=== PATIENT | female | born 1950 | race Caucasian/White ===

== ENCOUNTER 2022-07-20 13:23 | Outpatient (CLI) | payer MEDICARE, OTHER, SELFPAY ==
[2022-07-20 15:06] LABS: Chloride* 100 mmol/L (96-114); Potassium* 4.2 mmol/L (3.6-5.1); Sodium* 135 mmol/L (135-149)
[2022-07-20 15:08] LABS: Cholesterol* 203 mg/dL (90-199); Creatinine* 0.6 mg/dL (0.5-1.5); Estimated Glomerular Filt Rate 95 ml/min
[2022-07-20 15:09] LABS: Blood Urea Nitrogen* 17 mg/dL (7-30); Carbon Dioxide* 29 mmol/L (20-32); Glucose* 97 mg/dL (60-115); Triglycerides* 90 mg/dL (40-149)
[2022-07-20 15:10] LABS: Calcium* 9.4 mg/dL (8.4-10.6); HDL Cholesterol* 53 mg/dL (>=50); LDL Cholesterol Calculated 132 mg/dL (<100)
== END 2022-07-20 13:24 | disposition home or self-care (01) ==
PROVIDERS: PCP Internal Medicine; Visit Provider Internal Medicine
DX: I10 Essential (primary) hypertension (principal); E78.5 Hyperlipidemia, unspecified
CPT/HCPCS: 80048; 80061

== ENCOUNTER 2022-08-03 10:24 | Emergency (ER) | payer MEDICARE, OTHER, SELFPAY ==
[2022-08-03 10:41] VITALS: BP 148/86; PULSE 91; RESP 18; TEMP 37.4; O2SAT 98; BMI 33.8
[2022-08-03 12:49] VITALS: BP 164/88; PULSE 84; O2SAT 98
--- NOTE | 2022-08-03 13:13 | ED_ITS ---
HPI - General Adult General Chief complaint: Headache/Migraine Stated complaint: blood pressure issues Time Seen by Provider: 08/03/22 12:34 History of Present Illness HPI narrative: This 71-year-old female was instructed to come here by her primary physician for evaluation. She had a change in her blood pressure medicines about a week ago and states that she now has a mild headache. She does not have any neurologic symptoms and states that she would not have come into the emergency department except for the advice that she received. I am not aware of any phone call from her provider in this regard. She does not report any neurologic deficits. She does not have any chest pain or shortness of breath. She does bring her blood pressure records over the past week and they are essentially in acceptable range of blood pressures being adequately treated. She does have a few that were elevated into the 140s. Related Data Home Medications Medication Instructions Recorded Confirmed ascorbic acid (vitamin C) 500 mg 750 mg PO DAILY 07/20/22 07/20/22 tablet aspirin 81 mg tablet,delayed 81 mg PO DAILY 07/20/22 07/20/22 release biotin 1 mg tablet 1,000 mg PO DAILY 07/20/22 07/20/22 calcium carbonate 600 mg calcium 600 mg PO QDAY 07/20/22 07/20/22 (1,500 mg) tablet (Calcium) Previous Rx's Medication Instructions Recorded amlodipine 2.5 mg tablet 2.5 mg PO QDAY #90 tabs 07/20/22 valsartan 80 mg tablet 80 mg PO QDAY #90 tabs 07/20/22 Allergies Allergy/AdvReac Type Severity Reaction Status Date / Time cetirizine Allergy Unknown Unknown Verified 07/20/22 12:54 Clove oil Allergy Intermediate Rash Uncoded 07/20/22 12:54 Cultivated wheat grass Allergy Intermediate Rash Uncoded 07/20/22 12:54 Milk solids Allergy Intermediate Abdominal Uncoded 07/20/22 12:54 Pain Soy Allergy Allergy Intermediate Abdominal Uncoded 07/20/22 12:54 Pain Review of Systems Status of ROS: Reports: 10 or more systems reviewed and unremarkable except as noted in History and below Narrative: Constitutional: No fevers, no weight gain or loss. Eyes: No discharge. No vision changes. HENT: No congestion, no sore throat, no ear pain. Mild headache. Cardiovascular: No chest pain, no palpitations. Respiratory: No shortness of breath, no wheezes, no cough. Gastrointestinal: No abdominal pain, no vomiting, no diarrhea. Genitourinary: No dysuria, no hematuria. Musculoskeletal: Normal range of motion. Skin: No rashes, no pruritis. Neurological: No dizziness, weakness, sensory change, speech change. Endo/Heme/Allergies: No bruising or bleeding. No polydipsia. Pysch: no suicidality, no anxiety, no insomnia. All other systems reviewed and are negative. [facility] Surgical History (Updated 07/20/22 @ 13:09 by Ashlie Fregoso MD) History of basal cell carcinoma excision History of malignant melanoma (05/2016) History of tonsillectomy History of total hysterectomy with bilateral salpingo-oophorectomy (BSO) (1986) Family History (Updated 07/14/22 @ 09:40 by Esme Lui) Mother Breast cancer, Onset Age: 59 Uncle Colon cancer Aunt Colon cancer Diabetes Brother Diabetes Father Kidney disease Sister Thyroid disease Daughter Thyroid disease Social History Smoking Status: Never smoker How often do you have a drink containing alcohol: never How often do you have six or more drinks on one occasion: Never AUDIT-C Alcohol total score: 0 Non-prescribed substance use: denies use Little interest or pleasure in doing things: not at all Feeling down, depressed, or hopeless: not at all Exam Narrative: Exam Narrative: Constitutional: Well-developed, well-nourished, no acute distress. HEENT: Normocephalic, atraumatic. Neck: Normal range of motion. Nontender. Supple. Heart: Regular. No murmurs. Normal rate. Intact distal pulses. Lungs: Clear to auscultation. No chest discomfort. No wheezes, rhonchi, or rales. Abdomen: Normal bowel sounds. Nontender. No rebound tenderness. Genitalia: Deferred. Back: No midline tenderness. Normal range of motion. Extremities: Normal range of motion. No injury. Skin: Intact. No rash. Warm. No erythema or pallor. Neurologic: No altered sensation. No weakness. Alert and oriented. No facial asymmetry. Tongue is midline. No pronator drift. Director Health strength is equal bilaterally. Heel to johnson is normal. Psychiatric: No suicidality. No anxiety or depression. No insomnia. Nursing notes and vitals signs are reviewed. Const: Vital Signs, click to edit/add: Vital Signs - 24 hr 08/03/22 10:41 08/03/22 12:49 Temperature 99.4 F Pulse Rate [Right Pulse Oximeter] 91 84 Respiratory Rate 18 Blood Pressure [Ri ght Upper Arm] 148/86 H 164/88 H Pulse Oximetry 98 98 Oxygen Delivery Me thod Room Air Room Air Course Vital Signs Vital signs: Initial Vital Signs Temperature 99.4 F 08/03/22 10:41 Temperature Source Temporal Artery Scan 08/03/22 10:41 Pulse Rate 91 08/03/22 10:41 Respiratory Rate 18 08/03/22 10:41 Blood Pressure 148/86 H 08/03/22 10:41 Blood Pressure Mean 106 08/03/22 10:41 Blood Pressure Position Sitting 08/03/22 10:41 Pulse Oximetry 98 08/03/22 10:41 Oxygen Delivery Method 08/03/22 10:41 Vital Signs Temperature 99.4 F 08/03/22 10:41 Pulse Rate 91 08/03/22 10:41 Respiratory Rate 18 08/03/22 10:41 Blood Pressure 148/86 H 08/03/22 10:41 Pulse Oximetry 98 08/03/22 10:41 Oxygen Delivery Method 08/03/22 10:41 Temperature 99.4 F 08/03/22 10:41 Pulse Rate 84 08/03/22 12:49 Respiratory Rate 18 08/03/22 10:41 Blood Pressure 164/88 H 08/03/22 12:49 Pulse Oximetry 98 08/03/22 12:49 Oxygen Delivery Method 08/03/22 12:49 Medical Decision Making MDM Narrative Medical decision making narrative: This patient comes in with a belief that her blood pressure is causing her headache. I explained that it is really the opposite where are blood pressure response to symptoms that we may be having. She does think that and this headache is related to amlodipine which she started about a week ago. She had been on valsartan and hydrochlorothiazide. She discontinued the hydrochlorothiazide cording to her providers instructions because she was concerned about kidneys. Her exam today is normal. Actually her blood pressures are acceptable. I did describe the criteria that bring us to consider change in treatment strategy but typically this is managed by her primary physician. I did discuss lab and imaging options today and in a process of shared decision making these were declined. She states that she will consider taking 1 medication in the morning in the other 1 in the evening. She plans to follow-up with her primary physician. Discharge Plan Discharge Clinical Impression: Headache Patient Disposition: Home, Self-Care Condition: Stable Additional Instructions: Continue current plans and follow-up with primary physician for review of medications. Return if worsening symptoms happen. Prescriptions: No Action aspirin 81 mg tablet,delayed release (DR/EC) 81 mg PO DAILY biotin 1 mg tablet 1,000 mg PO DAILY ascorbic acid (vitamin C) 500 mg tablet 750 mg PO DAILY calcium carbonate [Calcium 600] 600 mg calcium (1,500 mg) tablet 600 mg PO QDAY valsartan 80 mg tablet 80 mg PO QDAY Qty: 90 3RF amlodipine 2.5 mg tablet 2.5 mg PO QDAY Qty: 90 3RF Follow Up/Referrals: Ashlie Fregoso MD [Primary Care Provider] - Stand Alone Forms: flux - neutrinity Info Instructions
== END 2022-08-03 13:23 | disposition home or self-care (01) ==
LOC: ED 13:22
PROVIDERS: Emergency Provider Emergency Medicine Emergency Medical Services; PCP Internal Medicine
DX: R51.9 Headache, unspecified (principal)
CPT/HCPCS: 99283; 99284

== ENCOUNTER 2022-08-10 13:07 | Outpatient (CLI) | payer MEDICARE, OTHER, SELFPAY ==
--- NOTE | 2022-08-10 13:16 | CRLHL7_ITS ---
For Patients: As a result of the Century Cures Act, medical imaging exams and procedure reports are released immediately into your electronic medical record. You may view this report before your referring provider. If you have questions, please contact your health care provider. BILATERAL SCREENING MAMMOGRAM WITH COMPUTER-AIDED DETECTION AND TOMOSYNTHESIS TECHNIQUE: CC and MLO views were obtained. These mammographic images have been obtained using full-field digital technique. These mammographic images were interpreted with the benefit of computer-aided detection. Breast Tomosynthesis was used in this interpretation. COMPARISON FILM: 05/13/22, 06/20/20. FINDINGS: There are scattered areas of fibroglandular density IMPRESSION: There is no radiographic evidence for malignancy. ASSESSMENT: BI-RADS Category 1: Negative RECOMMENDATION: Routine screening mammogram in 1 year. A lay language report of this examination will be provided to the patient. Elder Choudhury M.D. Diagnostic Radiologist [email or web address] DAMION/Dictated by: Elder Choudhury MD @ 08/11/2022 11:54:00 AM (Electronically Signed)
== END 2022-08-10 13:08 | disposition home or self-care (01) ==
LOC: MAMMO 13:08
PROVIDERS: PCP Internal Medicine; Visit Provider Internal Medicine
DX: Z12.31 Encounter for screening mammogram for malignant neoplasm of breast (principal)
CPT/HCPCS: 77063; 77067

== ENCOUNTER 2022-10-18 09:59 | Outpatient (CLI) | payer MEDICARE, OTHER, SELFPAY | END 2022-10-18 10:00 | disposition home or self-care (01) | LOC: NFLDREF 10-19 22:35 | PROVIDERS: PCP Internal Medicine; Referring Provider Internal Medicine; Visit Provider Internal Medicine | DX: I10 Essential (primary) hypertension (principal); E78.5 Hyperlipidemia, unspecified | CPT/HCPCS: 80048; 80061 ==

== ENCOUNTER 2023-03-10 15:06 | Emergency (ER) | payer MEDICARE, OTHER, SELFPAY ==
[2023-03-10] VITALS (11 sets, daily range): BP systolic 115–134; BP diastolic 69–80; PULSE 62–93; RESP 16–17; TEMP 37.2; O2SAT 96–98; BMI 29.3
--- NOTE | 2023-03-10 15:31 | CRLHL7_ITS ---
For Patients: As a result of the Century Cures Act, medical imaging exams and procedure reports are released immediately into your electronic medical record. You may view this report before your referring provider. If you have questions, please contact your health care provider. CLINICAL HISTORY: Left upper and lower extremity paresthesias. TECHNIQUE: CTA neck with contrast bolus tracking. 3D angiographic rendering using maximum intensity projection (MIP) and images permanently archived. COMPARISON: None available. FINDINGS: The great vessels are patent. The common carotid arteries are patent. The proximal ICAs are patent without signficant stenoses by NASCET criteria. The more distal cervical ICAs are patent. The origins of the vertebral arteries are patent. The cervical segments of the vertebral arteries are patent. IMPRESSION: Patent cervical arterial vasculature without hemodynamically significant luminal stenosis. Please note that all CT scans at this facility use dose modulation, iterative reconstruction, and/or weight-based dosing when appropriate to reduce radiation dose to as low as reasonably achievable. Dictated by Donny Carter MD @ 03/11/2023 9:23:43 AM (Electronically Signed)
--- NOTE | 2023-03-10 15:31 | CRLHL7_ITS ---
For Patients: As a result of the Century Cures Act, medical imaging exams and procedure reports are released immediately into your electronic medical record. You may view this report before your referring provider. If you have questions, please contact your health care provider. CLINICAL HISTORY: Left upper and lower extremity paresthesias. TECHNIQUE: CTA head with contrast bolus tracking. 3D angiographic rendering using maximum intensity projection (MIP) and images permanently archived. COMPARISON: None available. FINDINGS: The petrous, cavernous, and supraclinoid segments of the internal carotid arteries are patent. The anterior and middle cerebral arteries are patent. The anterior communicating artery is visualized and is within normal limits. The intracranial vertebral arteries, basilar trunk, and posterior cerebral arteries are patent. No intracranial proximal large vessel occlusion or flow-limiting luminal stenosis. No evidence of cerebral aneurysm. No findings to suggest an arterial-venous shunting lesion. IMPRESSION: No intracranial proximal large vessel occlusion, flow-limiting luminal stenosis, or cerebral aneurysm. Please note that all CT scans at this facility use dose modulation, iterative reconstruction, and/or weight-based dosing when appropriate to reduce radiation dose to as low as reasonably achievable. Dictated by Donny Carter MD @ 03/11/2023 9:23:14 AM (Electronically Signed)
--- NOTE | 2023-03-10 15:31 | CRLHL7_ITS ---
For Patients: As a result of the Cures Act, medical imaging exams and procedure reports are released immediately into your electronic medical record. You may view this report before your referring provider. If you have questions, please contact your health care provider. INDICATION: Left hand/arm and left leg paresthesias. COMPARISON: None. TECHNIQUE: CT of the head without IV contrast. Coronal and sagittal reconstructions. FINDINGS: No intracranial hemorrhage, mass effect, or evidence of acute infarct. No midline shift. No abnormal extra-axial fluid collections. Mild generalized cerebral and cerebellar volume loss with associated ex vacuo dilation of the lateral ventricles. Orbits and extraocular muscles are symmetric. The visualized paranasal sinuses and mastoid air cells are clear. No acute fracture identified. Soft tissues are unremarkable. IMPRESSION: No acute intracranial findings. Please note that all CT scans at this facility use dose modulation, iterative reconstruction, and/or weight-based dosing when appropriate to reduce radiation dose to as low as reasonably achievable. Dictated by Cora Johnson MD @ 03/10/2023 4:47:10 PM (Electronically Signed)
--- NOTE | 2023-03-10 15:33 | ED_ITS ---
HPI - General Adult General Chief complaint: Neuro Symptoms/Altered Deficit Stated complaint: L hand pain/numbness Time Seen by Provider: 03/10/23 15:30 History of Present Illness HPI narrative: This 72-year-old female comes in reporting tingling sensation with some mild weakness in her left hand and forearm that began about 5-1/2 hours prior to arrival. She also reported some tingling sensation in her left foot. She states that she did have some weakness in her left arm when this 1st occurred but these symptoms have improved. She reports similar symptoms previously that occurred years ago and was told that she might have had a transient ischemic attack. She does not take any anticoagulants normally but did take an aspirin this morning. She states that she normally walks 2-1/2 miles twice a day. She does not report any altered speech. She is able to ambulate normally. She does not have any facial asymmetry. Related Data Home Medications Medication Instructions Recorded Confirmed ascorbic acid (vitamin C) 500 mg 750 mg PO DAILY 07/20/22 03/10/23 tablet aspirin 81 mg tablet,delayed 81 mg PO DAILY 07/20/22 03/10/23 release biotin 1 mg tablet 1,000 mg PO DAILY 07/20/22 03/10/23 calcium carbonate 600 mg calcium 600 mg PO QDAY 07/20/22 03/10/23 (1,500 mg) tablet (Calcium) Previous Rx's Medication Instructions Recorded amlodipine 2.5 mg tablet 2.5 mg PO QDAY #90 tabs 10/21/22 valsartan 80 mg tablet 80 mg PO QDAY #90 tabs 10/21/22 Allergies Allergy/AdvReac Type Severity Reaction Status Date / Time cetirizine Allergy Unknown Unknown Verified 10/21/22 09:54 Clove oil Allergy Intermediate Rash Uncoded 10/21/22 09:54 Cultivated wheat grass Allergy Intermediate Rash Uncoded 10/21/22 09:54 Milk solids Allergy Intermediate Abdominal Uncoded 10/21/22 09:54 Pain Soy Allergy Allergy Intermediate Abdominal Uncoded 10/21/22 09:54 Pain Review of Systems Status of ROS: Reports: 10 or more systems reviewed and unremarkable except as noted in History and below Narrative: Constitutional: No fevers, no weight gain or loss. Eyes: No discharge. No vision changes. HENT: No congestion, no sore throat, no ear pain. Cardiovascular: No chest pain, no palpitations. Respiratory: No shortness of breath, no wheezes, no cough. Gastrointestinal: No abdominal pain, no vomiting, no diarrhea. Genitourinary: No dysuria, no hematuria. Musculoskeletal: Normal range of motion. Skin: No rashes, no pruritis. Neurological: No dizziness, speech change. Sensory change with some initial weakness as described above. Endo/Heme/Allergies: No bruising or bleeding. No polydipsia. Pysch: no suicidality, no anxiety, no insomnia. All other systems reviewed and are negative. PFSH PFS Surgical History (Updated 07/20/22 @ 13:09 by Ashlie Fregoso MD) History of basal cell carcinoma excision ?Z98.890 - Other specified postprocedural states (ICD-10) ?Z85.828 - Personal history of other malignant neoplasm of skin (ICD-10) History of total hysterectomy with bilateral salpingo-oophorectomy (BSO) (1986) ?Z90.710 - Acquired absence of both cervix and uterus (ICD-10) ?Z90.722 - Acquired absence of ovaries, bilateral (ICD-10) ?Z90.79 - Acquired absence of other genital organ(s) (ICD-10) History of tonsillectomy ?Z90.89 - Acquired absence of other organs (ICD-10) History of malignant melanoma (05/2016) ?Z85.820 - Personal history of malignant melanoma of skin (ICD-10) Family History (Updated 07/14/22 @ 09:40 by Esme Lui ~ PSR) Mother Breast cancer, Onset Age: 59 Uncle Colon cancer Aunt Colon cancer Diabetes Brother Diabetes Father Kidney disease Sister Thyroid disease Daughter Thyroid disease Social History Smoking Status: Never smoker How often do you have a drink containing alcohol: never How often do you have six or more drinks on one occasion: Never AUDIT-C Alcohol total score: 0 Non-prescribed substance use: denies use Little interest or pleasure in doing things: not at all Feeling down, depressed, or hopeless: not at all Exam Narrative: Exam Narrative: Constitutional: Well-developed, well-nourished, no acute distress. HEENT: Normocephalic, atraumatic. Neck: Normal range of motion. Nontender. Supple. Heart: Regular. No murmurs. Normal rate. Intact distal pulses. Lungs: Clear to auscultation. No chest discomfort. No wheezes, rhonchi, or rales. Abdomen: Normal bowel sounds. Nontender. No rebound tenderness. Genitalia: Deferred. Back: No midline tenderness. Normal range of motion. Extremities: Normal range of motion. No injury. Phalen's test is negative. Tinel sign is negative on the left hand and wrist. She has some difficulty bringing her thumb to touch her little finger on her left hand. Skin: Intact. No rash. Warm. No erythema or pallor. Neurologic: Alert and oriented. No facial asymmetry. Tongue is midline. [id number] is normal. No pronator drift. Signalling And Communications Engineer strength is slightly weak and on the left compared to the right. She is able to ambulate normally. Psychiatric: No suicidality. No anxiety or depression. No insomnia. Nursing notes and vitals signs are reviewed. Const: Vital Signs, click to edit/add: Vital Signs - 24 hr 03/10/23 15:15 Temperature 98.9 F Pulse Rate [Left P ulse Oximeter] 93 Respiratory Rate 16 Blood Pressure [Ri ght Upper Arm] 115/75 Pulse Oximetry 96 Oxygen Delivery Me thod Room Air Course Vital Signs Vital signs: Initial Vital Signs Temperature 98.9 F 03/10/23 15:15 Temperature Source Temporal Artery Scan 03/10/23 15:15 Pulse Rate 93 03/10/23 15:15 Respiratory Rate 16 03/10/23 15:15 Blood Pressure 115/75 03/10/23 15:15 Blood Pressure Mean 88 03/10/23 15:15 Blood Pressure Position Sitting 03/10/23 15:15 Pulse Oximetry 96 03/10/23 15:15 Oxygen Delivery Method Room Air 03/10/23 15:15 Vital Signs Temperature 98.9 F 03/10/23 15:15 Pulse Rate 93 03/10/23 15:15 Respiratory Rate 16 03/10/23 15:15 Blood Pressure 115/75 03/10/23 15:15 Pulse Oximetry 96 03/10/23 15:15 Oxygen Delivery Method Room Air 03/10/23 15:15 Temperature 98.9 F 03/10/23 15:15 Pulse Rate 93 03/10/23 15:15 Respiratory Rate 16 03/10/23 15:15 Blood Pressure 115/75 03/10/23 15:15 Pulse Oximetry 96 03/10/23 15:15 Oxygen Delivery Method Room Air 03/10/23 15:15 Medical Decision Making MDM Narrative Medical decision making narrative: This patient comes in with altered sensation and some mild weakness as described above. These symptoms started about 6 hours prior to arrival here. Her NIH stroke scale returns at 1 because of mild altered sensation. I did place an order for CT imaging of her head and CT angio of her head and neck. These results are pending at the end of my shift. Care for this patient is transferred to Dr. Kern. Lab Data Labs: Lab Results 03/10/23 Range/Units 15:37 WBC 8.97 (4.50-11.00) K/uL RBC 4.68 (4.00-5.20) m/uL Hgb 13.7 (12.0-16.0) gm/dL Hct 41.5 (33.0-51.0) % MCV 89 (80-100) fL MCH 29 (26-34) pg MCHC 33 (32-36) gm/dL RDW Coeff of Minor 12.6 (11.5-15.5) % Plt Count 213 (140-440) K/uL Neut % (Auto) 38.4 L (42.0-72.0) % Lymph % (Auto) 55.1 H (20-44) % Hamblen % (Auto) 5.8 (0.0-11.0) % Eos % (Auto) 0.2 (0.0-7.0) % Baso % (Auto) 0.3 (0.0-3.0) % Neut # (Auto) 3.40 (1.7-7.0) K/uL Lymph # (Auto) 4.90 H (0.90-2.90) K/uL Hamblen # (Auto) 0.50 (0.00-0.90) K/UL Eos # (Auto) 0.02 (0.00-0.50) K/uL Baso # (Auto) 0.03 (0.00-0.30) K/uL Abs Immat Gran (auto) 0.02 (0.00-0.30) K/uL Imm/Tot Granulo (auto) 0.2 % Sodium 139 (135-149) mmol/L Potassium 3.7 (3.6-5.1) mmol/L Chloride 104 (96-114) mmol/L Carbon Dioxide 27 (20-32) mmol/L Anion Gap 8 (7-15) mEq/L BUN 19 (7-30) mg/dL Creatinine 0.8 (0.5-1.5) mg/dL Estimated Creat Clear 39.04 Estimated GFR 77 ml/min Glucose 120 H (60-115) mg/dL Calcium 9.9 (8.4-10.6) mg/dL POC Creatinine 0.8 (0.6-1.3) mg/dl Discharge Plan Discharge Clinical Impression: Paresthesias Prescriptions: No Action valsartan 80 mg tablet 80 mg PO QDAY Qty: 90 3RF amlodipine 2.5 mg tablet 2.5 mg PO QDAY Qty: 90 3RF aspirin 81 mg tablet,delayed release (DR/EC) 81 mg PO DAILY biotin 1 mg tablet 1,000 mg PO DAILY ascorbic acid (vitamin C) 500 mg tablet 750 mg PO DAILY calcium carbonate [Calcium 600] 600 mg calcium (1,500 mg) tablet 600 mg PO QDAY Follow Up/Referrals: Ashlie Fregoso MD [Primary Care Provider] -
--- NOTE | 2023-03-10 15:45 | ED.NURSE ---
Patient to CT
[2023-03-10 15:52] LABS: Basophils Absolute Auto 0.03 K/uL (0.00-0.30); Basophils Percent Auto 0.3 % (0.0-3.0); Eosinophils Absolute Auto 0.02 K/uL (0.00-0.50); Eosinophils Percent Auto 0.2 % (0.0-7.0); Hematocrit 41.5 % (33.0-51.0); Hemoglobin* 13.7 gm/dL (12.0-16.0); Immature Granulocytes Abs Auto 0.02 K/uL (0.00-0.30); Immature Granulocytes Pct Auto 0.2 %; Lymphocytes Percent Auto 55.1 % (20-44); Mean Corpuscular HGB Conc 33 gm/dL (32-36); Mean Corpuscular Hemoglobin 29 pg (26-34); Mean Corpuscular Volume 89 fL (80-100); Monocytes Percent Auto 5.8 % (0.0-11.0); Neutrophils Percent Auto 38.4 % (42.0-72.0); Platelet Count* 213 K/uL (140-440); RDW Coefficient of Variation % 12.6 % (11.5-15.5); Red Blood Count 4.68 m/uL (4.00-5.20); White Blood Count* 8.97 K/uL (4.50-11.00)
[2023-03-10 15:57] LABS: Creatinine, Point-of-Care* 0.8 mg/dl (0.6-1.3)
[2023-03-10 15:58] LABS: Slide Review Reflex No
[2023-03-10 16:04] LABS: Chloride* 104 mmol/L (96-114); Potassium* 3.7 mmol/L (3.6-5.1); Sodium* 139 mmol/L (135-149)
[2023-03-10 16:07] LABS: Anion Gap 8 mEq/L (7-15); Blood Urea Nitrogen* 19 mg/dL (7-30); Carbon Dioxide* 27 mmol/L (20-32); Creatinine* 0.8 mg/dL (0.5-1.5); Est. Creatinine Clearance* 39.04; Estimated Glomerular Filt Rate 77 ml/min
[2023-03-10 16:08] LABS: Calcium* 9.9 mg/dL (8.4-10.6); Glucose* 120 mg/dL (60-115)
--- NOTE | 2023-03-10 16:25 | CRLHL7_ITS ---
For Patients: As a result of the Century Cures Act, medical imaging exams and procedure reports are released immediately into your electronic medical record. You may view this report before your referring provider. If you have questions, please contact your health care provider. INDICATION: Left extremity paresthesia. TECHNIQUE: Multisequence multiplanar MRI of the head without contrast. COMPARISON: None available at this institution. FINDINGS: No evidence of acute ischemia. Scattered foci of supratentorial white matter hyperintensity typical of mild chronic small vessel ischemic changes. Chronic lacunar infarct in the right cerebellar hemisphere with evidence of prior microhemorrhage. The ventricles are normal in size. Flow voids of the larger intracranial arteries are patent. Bone marrow signal intensity of the calvarium is within normal limits. Orbits are unremarkable in appearance. Paranasal sinuses and mastoid air cells are predominantly clear. IMPRESSION: 1. No acute intracranial abnormality. 2. Mild chronic small vessel ischemic changes and old right cerebellar lacunar infarct. Dictated by Brad Carver MD @ 03/10/2023 6:16:36 PM (Electronically Signed)
--- NOTE | 2023-03-10 17:24 | ED.NURSE ---
Patient to MRI
== END 2023-03-10 19:19 | disposition home or self-care (01) ==
PROVIDERS: Emergency Medicine Emergency Medical Services; Emergency Provider Emergency Medicine; PCP Internal Medicine
DX: R20.2 Paresthesia of skin (principal)
CPT/HCPCS: 36415; 70450; 70496; 70498; 70551; 80048; 82565; 85025; 93005; 99283; 99284; 99285; Q9967

== ENCOUNTER 2023-03-21 10:58 | Outpatient (CLI) | payer MEDICARE, OTHER, SELFPAY | END 2023-03-21 10:59 | disposition home or self-care (01) | LOC: NFLDREF 11:07 | PROVIDERS: PCP Internal Medicine; Visit Provider Internal Medicine | DX: E78.5 Hyperlipidemia, unspecified (principal); I10 Essential (primary) hypertension | CPT/HCPCS: 80061 ==

== ENCOUNTER 2023-03-29 12:45 | Outpatient (CLI) | payer MEDICARE, OTHER, SELFPAY ==
--- NOTE | 2023-03-29 13:59 | W.PM.STED ---
Stress Test Note Date Date Seen: 03/29/23 Date of test: 03/29/23 Providers Primary care provider: Ashlie Fregoso Stress test physician: Corinne Angel Stress Test Note Stress test ordered: Stress Echo Indication for test: Chest pain Stress test medicine: None Results discussion: Resting EKG: Sinus rhythm, 67 beats per minute. Resting blood pressure: 134/83 Stress test: Patient was exercise on the treadmill using standard David protocol. Patient was able to exercise to 9 minutes 13 seconds, stopping due to reaching her exercise capacity and achieving goal heart rate. This exercise level was equivalent to 10.7 Mets. She had a maximum heart rate of 150 beats per minute which was 120% of a calculated target heart rate of 124. She had a rate pressure product of 21,300. Patient had no chest symptoms or chest discomfort during the stress test. One solitary PVC was seen and EKG was printed at 2 minutes 29 seconds into recovery. Otherwise, no arrhythmia. Again, patient was asymptomatic. No EKG evidence of any ischemia. Patient discharge in stable condition. Impression: Subjectively negative, objectively negative EKG portion of this stress test. Follow up suggested: Await echo images to couple this for a full formal diagnostic.
[2023-03-29 15:04] VITALS: BP 138/90; PULSE 82; RESP 16
== END 2023-03-29 12:46 | disposition home or self-care (01) ==
LOC: STRESS 12:46
PROVIDERS: PCP Internal Medicine; Visit Provider Family Medicine
DX: R07.89 Other chest pain (principal)
CPT/HCPCS: 93016; 93325; 93351

== ENCOUNTER 2023-11-29 10:30 | Outpatient (CLI) | payer MEDICARE, OTHER, SELFPAY ==
--- OUTSIDE RECORDS SUMMARY | 2023-11-29 10:32 | XMS_ITS | Clinical Summary ---
Author Organization [facility] Address [address], [place] [address] Care Team Providers Care Toaster Element Repairer Name Role Phone Found, No Pcp Primary Care Provider Unavailab le Source Comments You are receiving this document as you are listed as the primary care provider,follow-up provider, or the patient has been referred to you for consultation.This is in compliance with the Medicare and[facility] EHR Incentive Program,which states Providers who transition their patient to another setting of careor provider of care or refers their patient to another provider of care shouldprovide summary care record for each transition of care or referral. [employer] Allergies Active Allergy Reactions Criticality Noted Date Comments Cetirizine Hives High 06/14/2023 Medications No known medications Active Problems No known active problems Social History Tobacco Use Types Packs/Day Years Used Date Smoking Tobacco: Never Assessed Sex and Gender Information Value Date Recorded Sex Assigned at Not on file Gender Identity Not on file Sexual Orientation Not on file Plan of Treatment Upcoming Encounters Date Type Department Care Team (Late st Contact Info) Description 06/19/2024 1:15 PM PATHOLOGIST ASSISTANT Appointment [facility] [address] [place], [place] [id number] Diane Rodriguez MD [address] [place] [address] Health Maintenance Due Date Last Done Comments Colon Cancer Screening Plan Due 1950 Hep C Screening (Preventive Services) 1950 Medicare Annual Wellness Visit 1950 Mammogram 1950 Dexa 2013 COVID-19 Vaccine ( season) 2023 01/25/2022, 05/08/2021, 09/04/2020, Additional history exists DTaP/Tdap/Td (4 - Tdap) 10/21/2032 10/22/19, 07/12/2013, 07/12/2012 Pneumococcal 65+ Yrs Completed 12/13/2018, 04/17/2014, 04/17/2014 Zoster/Shingles Completed 06/05/2019, 07/2018, 06/21/2012 Influenza Completed 04/14/2023, 04/04, 03/23/2021, Additional history exists HepA Aged Out No longer eligi ble based on patient's age to complete this topic HepB Aged Out No longer eligi ble based on patient's age to complete this topic Hib Aged Out No longer eligi ble based on patient's age to complete this topic IPV ([place]) Aged Out No longer eligi ble based on patient's age to complete this topic MCV4 Aged Out No longer eligi ble based on patient's age to complete this topic Care Teams Toaster Element Repairer Relationship Specialty Start Date End Date Found, No Pcp, [address] [place] [address] PCP - General 06/07/23
--- NOTE | 2023-11-29 10:45 | CRLHL7_ITS ---
For Patients: As a result of the Century Cures Act, medical imaging exams and procedure reports are released immediately into your electronic medical record. You may view this report before your referring provider. If you have questions, please contact your health care provider. BILATERAL SCREENING MAMMOGRAM WITH COMPUTER-AIDED DETECTION AND TOMOSYNTHESIS TECHNIQUE: CC and MLO views were obtained. These mammographic images have been obtained using full-field digital technique. These mammographic images were interpreted with the benefit of computer-aided detection. Breast Tomosynthesis was used in this interpretation. COMPARISON FILM: 08/10/22, 07/13/21, 06/20/20. FINDINGS: There are scattered areas of fibroglandular density IMPRESSION: There is no radiographic evidence for malignancy. ASSESSMENT: BI-RADS Category 1: Negative RECOMMENDATION: Routine screening mammogram in 1 year. A lay language report of this examination will be provided to the patient. Elder Choudhury M.D. Diagnostic Radiologist [email or web address] DAMION/Dictated by: Elder Choudhury MD @ 11/30/2023 9:20:00 AM (Electronically Signed)
== END 2023-11-29 10:31 | disposition home or self-care (01) ==
LOC: MAMMO 10:31
PROVIDERS: PCP Internal Medicine; Visit Provider Internal Medicine
DX: Z12.31 Encounter for screening mammogram for malignant neoplasm of breast (principal)
CPT/HCPCS: 77063; 77067

== ENCOUNTER 2024-03-07 08:40 | Outpatient (CLI) | payer MEDICARE, OTHER, SELFPAY ==
--- OUTSIDE RECORDS SUMMARY | 2024-03-11 12:03 | XMS_ITS | Clinical Summary ---
Author Organization [facility] Address [address], [place] [address] Care Team Providers Care Supervising Nurse Name Role Phone Found, No Pcp Primary Care Provider Unavailab le Source Comments You are receiving this document as you are listed as the primary care provider,follow-up provider, or the patient has been referred to you for consultation.This is in compliance with the Medicare and[facility]centive [facility],which states Providers who transition their patient to another setting of careor provider of care or refers their patient to another provider of care shouldprovide summary care record for each transition of care or referral. [employer] Allergies Active Allergy Reactions Criticality Noted Date [...] st Contact Info) Description 06/19/2024 1:15 PM SLEEVE FIXER Appointment [facility] [address] [place], [place] [address] Diane Rodriguez MD [address] [place] [address] Health Maintenance Due Date Last Done Comments Colon Cancer Screening Plan Due 1950 Hep C Screening (Preventive Services) 1950 Medicare Annual Wellness Visit 1950 Mammogram 1950 Dexa 2013 COVID-19 Vaccine ( season) 2024 01/25/2022, 05/08/2021, 09/04/2020, Additional history exists Influenza (#1) 2024 04/14/2023, 04/04, 03/23/2021, Additional history exists DTaP/Tdap/Td (4 - Tdap) 10/21/2032 10/22/19, 07/12/2013, 07/12/2012 Pneumococcal 65+ Yrs Completed 12/13/2018, 04/17/2014, 04/17/2014 Zoster/Shingles Completed 06/05/2019, 07/2018, 06/21/2012 HepA Aged Out No longer eligi ble [...] age to complete this topic Care Teams Supervising Nurse Relationship Specialty Start Date End Date Found, No Pcp, [address] [place] [address] PCP - General 06/07/23
== END 2024-03-07 08:41 | disposition home or self-care (01) ==
LOC: NFLDREF 03-11 12:01
PROVIDERS: PCP Internal Medicine; Referring Provider Internal Medicine; Visit Provider Internal Medicine
DX: E78.5 Hyperlipidemia, unspecified (principal); I10 Essential (primary) hypertension
CPT/HCPCS: 80048; 80061

== ENCOUNTER 2024-06-14 09:00 | Outpatient (RCR) | payer MEDICARE, OTHER, SELFPAY | END 2024-09-06 14:13 | disposition home or self-care (01) | PROVIDERS: PCP Internal Medicine; Visit Provider Internal Medicine | DX: M54.6 Pain in thoracic spine (principal); Z51.89 Encounter for other specified aftercare | CPT/HCPCS: 97110; 97140; 97162; 97535 ==

== ENCOUNTER 2024-06-15 10:30 | Outpatient (CLI) | payer MEDICARE, OTHER, SELFPAY ==
--- NOTE | 2024-06-15 10:45 | CRLHL7_ITS ---
For Patients: As a result of the Cures Act, medical imaging exams and procedure reports are released immediately into your electronic medical record. You may view this report before your referring provider. If you have questions, please contact your health care provider. DIGITAL DIAGNOSTIC BILATERAL MAMMOGRAM USING TOMOSYNTHESIS AND COMPUTER-AIDED DETECTION LEFT BREAST ULTRASOUND CLINICAL HISTORY: LEFT breast lump. COMPARISON: 11/29/23, 08/10/22, 07/13/21. TECHNIQUE: Digital BILATERAL mammogram in four projections with computer-aided detection. Tomosynthesis was used in this interpretation. Real-time ultrasound imaging of LEFT breast with imaging documentation. BREAST COMPOSITION: There are scattered areas of fibroglandular density. FINDINGS: 3D CC/MLO BILATERAL mammogram images submitted. Irregular mass is present within the upper outer quadrant LEFT breast, new from prior studies. No suspicious calcifications. Unremarkable RIGHT breast mammogram images. Targeted LEFT breast ultrasound performed at 1 o`clock 9 cm from the nipple. In this location, there is a heterogeneous irregularly marginated hypoechoic solid mass measuring 1.9 x 1.5 x 2.0 cm. Normal-appearing LEFT axillary lymph nodes are present. IMPRESSION: Suspicious LEFT breast mass 1 o`clock 9 cm from the nipple measuring 1.9 x 1.5 x 2.0 cm. RECOMMENDATIONS: Ultrasound-guided core needle biopsy. A lay language report of this examination will be provided to the patient. BI-RADS Category 4: Suspicious Dictated by Elder Choudhury MD @ 06/15/2024 12:52:00 PM jj/Dictated by: Elder Choudhury MD @ 06/15/2024 12:52:00 PM (Electronically Signed)
--- NOTE | 2024-06-15 11:15 | CRLHL7_ITS ---
For Patients: As a result of the Cures Act, medical imaging exams and procedure reports are released immediately into your electronic medical record. You may view this report before your referring provider. If you have questions, please contact your health care provider. SEE DIGITAL DIAGNOSTIC BILATERAL MAMMOGRAM PERFORMED SAME DAY CRL:pio suero/Dictated by: Elder Choudhury MD @ 06/15/2024 12:52:00 PM (Electronically Signed)
== END 2024-06-15 10:31 | disposition home or self-care (01) ==
LOC: MAMMO 10:31
PROVIDERS: PCP Internal Medicine; Visit Provider Registered Nurse
DX: N63.21 Unspecified lump in the left breast, upper outer quadrant (principal)
CPT/HCPCS: 76642; 77066; G0279

== ENCOUNTER 2024-06-21 08:58 | Outpatient (CLI) | payer MEDICARE, OTHER, SELFPAY ==
--- NOTE | 2024-06-21 09:15 | CRLHL7_ITS ---
For Patients: As a result of the 21st Century Cures Act, medical imaging exams and procedure reports are released immediately into your electronic medical record. You may view this report before your referring provider. If you have questions, please contact your health care provider. ULTRASOUND-GUIDED BREAST BIOPSY AND POST-BIOPSY DIGITAL MAMMOGRAM FOR BIOPSY MARKER PLACEMENT CLINICAL HISTORY: Suspicious mass. COMPARISON STUDIES: 06/15/2024. TECHNIQUE: Real-time ultrasound with image documentation was used for targeting the breast lesion. Core biopsy specimens were obtained using an automated gun with a 14-gauge biopsy needle. Post-biopsy CC and ML digital mammograms were obtained to document position of the biopsy marker. CONSENT and TIME OUT: The procedure, risks, and alternatives were explained to the patient and a consent was signed. [place] Protocol was followed including pre-procedure verification that relevant information/documentation was available, reviewed and properly matched to the patient; consent accurate and complete; and equipment and supplies available. Time Out was conducted just prior to starting procedure to verify the four required elements: patient identity, correct side/site marked (if applicable), procedure, relevant images/results properly labeled and displayed (if applicable). PROCEDURE: The patient was positioned supine on the ultrasound table. The breast was prepped with ChloraPrep. 8 cc of 1 percent lidocaine used for local anesthesia. Core samples were obtained. A sterile metal biopsy clip was placed percutaneously to molina the lesion position within the breast. The specimens were placed in 10% formalin and sent to the pathology department. Pressure was held on the biopsy site until all bleeding subsided. The skin incision was closed with Steri-Strips. An ice pack was positioned over the biopsy site. Post-biopsy instructions were reviewed with the patient, and a written copy was given to her. LATERALITY: LEFT breast. LESION: Solid heterogeneously hypoechoic macrolobulated mass with internal vascularity measuring 1.9 x 1.5 x 2.0 cm at 1 o`clock 9 cm from the nipple. SUSPICION FOR MALIGNANCY: High. NUMBER OF SAMPLES: 3. Only three samples obtained due to bleeding during the procedure which was managed with pressure and subsided easily. Postprocedure hematoma noted on the post clip films. BIOPSY CLIP SHAPE: Oval. PROXIMITY OF CLIP TO TARGET: Within the lesion. IMPRESSION: Ultrasound-guided breast biopsy. When the pathology report is available, an addendum to this report will be made. ACR not applicable Dictated by Elder Choudhury MD @ 06/21/2024 10:28:07 AM pio/Dictated by: Elder Choudhury MD @ 06/21/2024 10:28:00 AM (Electronically Signed)
--- NOTE | 2024-06-21 10:00 | CRLHL7_ITS ---
For Patients: As a result of the Century Cures Act, medical imaging exams and procedure reports are released immediately into your electronic medical record. You may view this report before your referring provider. If you have questions, please contact your health care provider. SEE ULTRASOUND-GUIDED LEFT BREAST BIOPSY PERFORMED SAME DAY CRL:pio suero/Dictated by: Elder Choudhury MD @ 06/21/2024 10:25:00 AM (Electronically Signed)
== END 2024-06-21 08:59 | disposition home or self-care (01) ==
PROVIDERS: PCP Internal Medicine; Visit Provider Registered Nurse
DX: N63.20 Unspecified lump in the left breast, unspecified quadrant (principal); R92.8 Other abnormal and inconclusive findings on diagnostic imaging of breast
CPT/HCPCS: 19083; 77065; 88305; 88341; 88342; 88360; 88361; A4648; A4649

== ENCOUNTER 2024-06-29 10:02 | Outpatient (CLI) | payer MEDICARE, OTHER, SELFPAY ==
--- NOTE | 2024-06-29 10:15 | CRLHL7_ITS ---
For Patients: As a result of the Century Cures Act, medical imaging exams and procedure reports are released immediately into your electronic medical record. You may view this report before your referring provider. If you have questions, please contact your health care provider. BILATERAL BREAST MRI WITHOUT AND WITH GADOLINIUM CLINICAL HISTORY: New diagnosis left breast cancer INDICATION FOR BREAST MRI: Staging of newly diagnosed breast cancer and screening of contralateral breast. Regional lymph nodes will also be assessed. COMPARISON STUDIES: 08/10/2022, 06/15/2024, 06/21/2024 CONTRAST: 15 mL Dotarem TECHNIQUE: The patient was positioned prone using a breast coil. Multiple imaging sequences were obtained using 1-1.5 mm thick slices with no gap. The image sequences include T2-weighted STIR in the axial plane, T1-weighted nonfat-saturated gradient echo in the axial plane, pre- and post-contrast T1-weighted FLASH 3D with fat suppression in the axial plane, and T1-weighted FLASH high resolution 3D with fat suppression in the sagittal plane. Image post-processing was performed on a Code Rebel workstation. Complex 3D rendering including maximum intensity projections (MIPS) and volumetric renderings were obtained to optimize visualization of the extent of pathology and relationship to the nipple, skin, and chest wall. This aids in determining feasibility of breast conservation surgery. Subtraction, multiplanar reconstruction, mean curve determination, and angiogenesis mapping were also performed. The study was technically adequate. FINDINGS: Amount of Fibroglandular Tissue: Heterogeneous. Breast Background Enhancement: None RIGHT Breast: No suspicious mass or enhancement LEFT Breast: New breast cancer is visualized as an enhancing mass left upper outer quadrant measurement 2.1 x 1.2 x 1.8 cm. Contains the marker clip placed at biopsy. No other findings. Lymph Nodes: Right axillary lymph nodes negative. Two indeterminate lymph nodes identified in the left axilla. No internal mammary nodes are enlarged. Other Findings: Large hepatic cyst IMPRESSIONS AND RECOMMENDATIONS: The new left breast cancer is visualized as a 2.1 x 1.2 x 1.8 cm enhancing mass containing a marker clip placed at biopsy. The right breast is negative. There are a few indeterminate left axillary lymph nodes. Consider ultrasound left axilla with possible biopsy if clinically needed. BI-RADS: [id number] malignancy Dictated by Kendra Scott MD @ 07/02/2024 2:47:52 PM (Electronically Signed)
== END 2024-06-29 10:03 | disposition home or self-care (01) ==
PROVIDERS: PCP Internal Medicine; Visit Provider Surgery
DX: C50.412 Malignant neoplasm of upper-outer quadrant of left female breast (principal); R59.0 Localized enlarged lymph nodes
CPT/HCPCS: 77049; C8908; C8937; A9575

== ENCOUNTER 2024-07-11 07:59 | Outpatient (CLI) | payer MEDICARE, OTHER, SELFPAY ==
--- NOTE | 2024-07-11 08:15 | CRLHL7_ITS ---
For Patients: As a result of the Century Cures Act, medical imaging exams and procedure reports are released immediately into your electronic medical record. You may view this report before your referring provider. If you have questions, please contact your health care provider. ULTRASOUND-GUIDED LEFT AXILLARY LYMPH NODE BIOPSY CLINICAL HISTORY: LEFT breast cancer with suspicious LEFT axillary lymph nodes. COMPARISON STUDIES: MRI 06/29/2024. TECHNIQUE: Real-time ultrasound with image documentation was used for targeting the LEFT axillary lymph node lesion. Core biopsy specimens were obtained using an automated gun with an 18-gauge biopsy needle. CONSENT and TIME OUT: The procedure, risks, and alternatives were explained to the patient and a consent was signed. [place] Protocol was followed including pre-procedure verification that relevant information/documentation was available, reviewed and properly matched to the patient; consent accurate and complete; and equipment and supplies available. Time Out was conducted just prior to starting procedure to verify the four required elements: patient identity, correct side/site marked (if applicable), procedure, relevant images/results properly labeled and displayed (if applicable). PROCEDURE: The patient was positioned supine on the ultrasound table. The LEFT axilla was prepped with ChloraPrep. 8 cc of 1 percent lidocaine used for local anesthesia. Core samples were obtained. The specimens were placed in 10% formalin and sent to the pathology department. Pressure was held on the biopsy site until all bleeding subsided. The skin incision was closed with Steri-Strips. An ice pack was positioned over the biopsy site. Post-biopsy instructions were reviewed with the patient, and a written copy was given to her. LATERALITY: LEFT axilla. LESION: Mildly enlarged LEFT axillary lymph node measuring 2.1 cm with mild prominence of the associated cortex. SUSPICION FOR MALIGNANCY: High. NUMBER OF SAMPLES: 5. BIOPSY CLIP SHAPE: Oval. PROXIMITY OF CLIP TO TARGET: Within the lesion. IMPRESSION: Ultrasound-guided breast biopsy. When the pathology report is available, an addendum to this report will be made. ACR not applicable Dictated by Elder Choudhury MD @ 07/11/2024 10:45:51 AM jj/Dictated by: Elder Choudhury MD @ 07/11/2024 10:46:00 AM (Electronically Signed)
== END 2024-07-11 08:00 | disposition home or self-care (01) ==
LOC: US 08:00
PROVIDERS: PCP Internal Medicine; Visit Provider Surgery
DX: C50.912 Malignant neoplasm of unspecified site of left female breast (principal)
CPT/HCPCS: 38505; 76942; 88305; A4648; A4649

== ENCOUNTER 2024-07-16 07:46 | Outpatient (CLI) | payer MEDICARE, OTHER, SELFPAY | END 2024-07-16 07:47 | disposition home or self-care (01) | LOC: RAD 07:48 | PROVIDERS: PCP Internal Medicine; Visit Provider Internal Medicine Hematology & Oncology | DX: Z01.818 Encounter for other preprocedural examination (principal); C50.919 Malignant neoplasm of unspecified site of unspecified female breast | CPT/HCPCS: 93306 ==

== ENCOUNTER 2024-07-19 11:14 | Day surgery (SDC) | payer MEDICARE, OTHER, SELFPAY ==
[2024-07-19] MEDS: SODIUM CHLORIDE 0.9 % (FLUSH) 10 ML SYRINGE IVF (11:40)
[2024-07-19 11:41] VITALS: BMI 27.3
--- NOTE | 2024-07-19 11:43 | W.PM.H&PU ---
History & Physical Update History & Physical Update H&P Reviewed and patient assessed: No changes noted
[2024-07-19] MEDS: 0.9 % SODIUM CHLORIDE 500 ML 500 ML 100 ML IV (11:50)
[2024-07-19 11:51] VITALS: BP 140/87; PULSE 71; RESP 16; TEMP 36.9; O2SAT 98
[2024-07-19] MEDS: CEFAZOLIN 1 GM inj IVP (12:11)
--- NOTE | 2024-07-19 12:11 | CRLHL7_ITS ---
For Patients: As a result of the Century Cures Act, medical imaging exams and procedure reports are released immediately into your electronic medical record. You may view this report before your referring provider. If you have questions, please contact your health care provider. Indication: Status post Port-A-Cath placement Technique: Chest 1 view Comparison: None Findings/Impression: Cardiovascular and mediastinum: Upper normal heart size with mild aortic tortuosity. Right-sided Port-A-Cath with tip at the cavoatrial junction. Lungs and pleural space: Lungs are clear. No sign of infiltrate or mass. No sign of pleural effusion. No pneumothorax. Bones and soft tissues: Clip overlying the left axilla. Dictated by Severiano Ferris MD @ 07/19/2024 1:31:34 PM (Electronically Signed)
--- NOTE | 2024-07-19 12:12 | PM.GSPRC ---
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 Hemo therapy was recommended as the 1st treatment modality and she presents today for port placement. Procedure Description: After discussing the risks and benefits of the procedure, the patient signed informed consent.? The operative site was marked and the patient was brought to the operating room and placed on the operating table in supine position.? Care was taken to pad the patient's pressure points.?? The patient was then given sedation by anesthesia.?? The operative site was then prepped and draped in the usual sterile fashion.? A time-out was then performed. The patient's right internal jugular vein was visualized using ultrasound. Local anesthetic was injected into the skin overlying the vein. This was accessed percutaneously using ultrasound guidance. Using Seldinger technique, a guidewire was threaded through the needle. A skin amrita was made around the wire. Next, local anesthetic was injected into the skin below the clavicle and along the proposed tract to the neck incision. A skin incision was then made with a 15 blade and a pocket created in the subcutaneous tissue with cautery. A tunneler was then used to thread the catheter from the chest wall pocket to the neck incision. Once this was done fluoroscopy was brought into the field. Over the wire, the tract was dilated using fluoroscopy. The wire and the dilator were then removed leaving the sheath in the vein. Through this, the catheter was threaded. Using fluoroscopy, the catheter was positioned into the distal SVC. The catheter was noted to flush and aspirate easily. The catheter was then connected to the port. The port was placed in the pocket and secured in place with 2 0 Prolene sutures. It was noted to flush and aspirate easily once in position. This was then locked with heparinized saline. The skin was closed with absorbable suture. Sterile dressings were applied. Instrument sponge and needle counts were correct at the end of the case. The patient was woken and taken to the PACU in stable condition. The patient tolerated the procedure well. Findings: Right IJ power port placed in the low SVC. Anesthesia: MAC Surgeon: Arianne Grace MD Estimated blood loss (mL): 5 Condition: stable Disposition: same day
--- NOTE | 2024-07-19 12:13 | P.ANES_ITS ---
Anesthesia Charges Start Date/Time Anesthesia Start Date: 07/19/24 Anesthesia Start Time: 11:59 Stop Date/Time Anesthesia Stop Date: 07/19/24 Anesthesia Stop Time: 13:04 Summary Extremes of Age - Over 70 or under 1: COAL HAULER OPERATOR Coding CPT Codes CPT Codes: ANESTH VASCULAR ACCESS - 98693 ([id number]) P3 - PATIENT W/SEVERE SYS DISEASE, QK - COMMUNITY MIDWIFE 2-4 CNCRNT ANES PROC, QX - COAL HAULER OPERATOR SVC W/ MD MED DIRECTION Additional Codes: Summary - Extremes of Age - Over 70 or under 1: COAL HAULER OPERATOR ([id number])
--- NOTE | 2024-07-19 12:13 | W.ANESCHARGE ---
Anesthesia Charges Start Date/Time Anesthesia Start Date: 07/19/24 Anesthesia Start Time: 11:59 Stop Date/Time Anesthesia Stop Date: 07/19/24 Anesthesia Stop Time: 13:04 Summary Extremes of Age - Over 70 or under 1: PRODUCTION CONTROL PEGBOARD CLERK Coding CPT Codes CPT Codes: ANESTH VASCULAR ACCESS - 98511 ([id number]) P3 - PATIENT W/SEVERE SYS DISEASE, QK - SLUDGE FILTRATION OPERATOR 2-4 CNCRNT ANES PROC, QX - PRODUCTION CONTROL PEGBOARD CLERK SVC W/ MD MED DIRECTION Additional Codes: Summary - Extremes of Age - Over 70 or under 1: PRODUCTION CONTROL PEGBOARD CLERK ([id number])
--- NOTE | 2024-07-19 12:15 | CRLHL7_ITS ---
For Patients: As a result of the Century Cures Act, medical imaging exams and procedure reports are released immediately into your electronic medical record. You may view this report before your referring provider. If you have questions, please contact your health care provider. Indication: Ronit Cath Placement Technique: One fluoroscopic image of the chest. Fluoroscopic time 25.5 seconds. IMPRESSION: Fluoroscopic guidance for Port-A-Cath placement. Dictated by Elder Choudhury MD @ 07/20/2024 8:39:43 AM (Electronically Signed)
[2024-07-19] MEDS: LIDOCAINE 1% MDV 20 ML INJECTION (12:23)
[2024-07-19] MEDS: BUPIVACAINE 0.5% 30 ML INJECTION (12:23)
[2024-07-19] MEDS: 0.9% SODIUM CHL 50 ML VIAL INJECTION (12:44)
[2024-07-19] MEDS: HEPARIN 500 UNIT/5 ML SYRINGE IVF (12:47)
[2024-07-19 13:00] VITALS: BP 108/74; PULSE 66; RESP 16; TEMP 36.6; O2SAT 96
[2024-07-19 13:15] VITALS: BP 119/86; PULSE 56; RESP 16; O2SAT 98
[2024-07-19 13:30] VITALS: BP 119/86; PULSE 70; RESP 16; O2SAT 98
[2024-07-19 13:45] VITALS: BP 120/84; PULSE 68; RESP 14; TEMP 36.6; O2SAT 99
--- NOTE | 2024-07-19 14:40 | W.ANESCHARGE ---
Anesthesia Charges Start Date/Time Anesthesia Start Date: 07/19/24 Anesthesia Start Time: 11:59 Stop Date/Time Anesthesia Stop Date: 07/19/24 Anesthesia Stop Time: 13:04 Summary Extremes of Age - Over 70 or under 1: MDA Coding CPT Codes CPT Codes: ANESTH VASCULAR ACCESS - 63792 ([id number]) QK - FISHERIES MANAGEMENT BIOLOGIST 2-4 CNCRNT ANES PROC, QX - STREET CONTRACTOR SVC W/ MD MED DIRECTION, P3 - PATIENT W/SEVERE SYS DISEASE Additional Codes: Summary - Extremes of Age - Over 70 or under 1: MDA ([id number])
== END 2024-07-19 14:18 | disposition home or self-care (01) ==
PROVIDERS: PCP Internal Medicine; Visit Provider Surgery
PROC: (CPT 36561; principal; 2024-07-19 12:15)
DX: Z45.2 Encounter for adjustment and management of vascular access device (principal); C50.412 Malignant neoplasm of upper-outer quadrant of left female breast; Z17.421 Hormone receptor negative with human epidermal growth factor receptor 2 negative status
CPT/HCPCS: 36561; 00532; 71045; 76000; 76998; 99100; J2003; C1788; J0665; J0690; J1100; J1642; J2250; J2405; J2704; J3010; J3490; J7030

== ENCOUNTER 2024-08-02 14:30 | Outpatient (CLI) | payer MEDICARE, OTHER, SELFPAY ==
--- NOTE | 2024-08-02 15:00 | CRLHL7_ITS ---
For Patients: As a result of the 21st Century Cures Act, medical imaging exams and procedure reports are released immediately into your electronic medical record. You may view this report before your referring provider. If you have questions, please contact your health care provider. EXAM: FDG PET-CT Skull Base to Thighs CLINICAL INFORMATION: 73-year-old woman with history of breast cancer. PET CT ordered for additional characterization. TECHNIQUE: Radiopharmaceutical: 18F-fluorodeoxyglucose (18F-FDG) Dose: 12.90 milliCurie. Blood glucose: 91 mg/dL. Image acquisition: At approximately 60 minutes following IV tracer administration via a left antecubital vein, positron emission tomography was performed from the skull base through the mid thigh. Non-contrast low-dose helical CT imaging was performed over the same range without breath-hold for attenuation correction of PET images and anatomic correlation; it is neither sufficient, nor should it be substituted for diagnostic purposes. COMPARISON: MRI breast 06/29/2024. FINDINGS: Mediastinal blood pool FDG uptake: SUVMax 2.2 (image 98) Liver background parenchymal FDG uptake: SUVMax 2.9 (image 143) HEAD AND NECK: No abnormal FDG uptake in the imaged head and neck. CHEST: Ports and devices: Right internal jugular port catheter with the tip terminating at the cavoatrial junction. Lungs: No abnormal FDG uptake. Pleura: No abnormal FDG uptake. Lymph Nodes: Mildly FDG avid 1.5 X 0.8 Cm left axillary node SUVMax 2.6 (Image 79). Faint FDG uptake at a 0.9 x 0.7 cm left axillary node containing a biopsy marker SUVMax 1.1 (Image 74), superior lateral to the node described above, representing a biopsy-proven benign lymph node. Mediastinum: No abnormal FDG uptake. Breasts/Chest Wall: 1.9 X 1.4 Cm mass containing a biopsy clip in the left upper outer breast SUVMax 7.5 (image 84). ABDOMEN/PELVIS: Liver/biliary system: No abnormal increased FDG uptake. Left liver cyst. Pancreas: No abnormal FDG uptake. Spleen: No abnormal FDG uptake. Adrenal Glands: No abnormal FDG uptake. Kidneys: No abnormal FDG uptake. Bowel: No abnormal FDG uptake. Colonic diverticulosis. Mesentery, Omentum and Peritoneum: No abnormal FDG uptake. Atherosclerotic calcifications. Pelvic Organs: No abnormal FDG uptake. Hysterectomy. Lymph Nodes: No abnormal FDG uptake. MUSCULOSKELETAL: No abnormal FDG uptake. Multilevel degenerative changes in the spine. IMPRESSION: 1. Moderately FDG avid 1.9 cm mass in the left upper-outer breast representing biopsy-proven invasive ductal carcinoma. 2. Mildly FDG avid left axillary lymph node, subcentimeter in short axis and inferomedial to a biopsy-proven left axillary benign lymph node, is nonspecific for a metastatic lymph node versus reactive/inflammatory change. Correlate with tissue sampling. Dictated by Dakota Chacon MD @ 08/06/2024 2:13:25 PM (Electronically Signed)
== END 2024-08-02 14:31 | disposition home or self-care (01) ==
LOC: RAD 14:31
PROVIDERS: PCP Internal Medicine; Visit Provider Internal Medicine Hematology & Oncology
DX: C50.412 Malignant neoplasm of upper-outer quadrant of left female breast (principal)
CPT/HCPCS: 78815; A9552

== ENCOUNTER 2024-08-09 08:56 | Outpatient (CLI) | payer MEDICARE, OTHER, SELFPAY ==
--- NOTE | 2024-08-09 10:15 | CRLHL7_ITS ---
For Patients: As a result of the Century Cures Act, medical imaging exams and procedure reports are released immediately into your electronic medical record. You may view this report before your referring provider. If you have questions, please contact your health care provider. ULTRASOUND-GUIDED LEFT AXILLARY LYMPH NODE BIOPSY CLINICAL HISTORY: Mildly hypermetabolic lymph node in the left axilla adjacent to a previously biopsied lymph node in the left axilla. Mildly prominent left axillary lymph node is present on ultrasound earlier today. Biopsy will be performed on this lymph node. COMPARISON STUDIES: CT-PET 08/02/2024, MRI breast 06/29/2024, ultrasound biopsy 06/21/2024 TECHNIQUE: Real-time ultrasound with image documentation was used for targeting the left axillary lesion. Core biopsy specimens were obtained using an automated gun with an 18-gauge biopsy needle. CONSENT and TIME OUT: The procedure, risks, and alternatives were explained to the patient and a consent was signed. [place] Protocol was followed including pre-procedure verification that relevant information/documentation was available, reviewed and properly matched to the patient; consent accurate and complete; and equipment and supplies available. Time Out was conducted just prior to starting procedure to verify the four required elements: patient identity, correct side/site marked (if applicable), procedure, relevant images/results properly labeled and displayed (if applicable). PROCEDURE: The patient was positioned supine on the ultrasound table. The left axilla was prepped with ChloraPrep. 8 cc of 1 percent lidocaine used for local anesthesia. Core samples were obtained. A sterile metal biopsy clip was placed percutaneously to molina the lesion position within the breast. The specimens were placed in 10% formalin and sent to the pathology department. Pressure was held on the biopsy site until all bleeding subsided. The skin incision was closed with Steri-Strips. An ice pack was positioned over the biopsy site. Post-biopsy instructions were reviewed with the patient, and a written copy was given to her. LATERALITY: Left axilla LESION: Left axillary lymph node is present measuring 9 x 7 x 11 millimeters deeper to the previously biopsied lymph node, probably representing the mildly hypermetabolic lymph node on recent PET SUSPICION FOR MALIGNANCY: Intermediate NUMBER OF SAMPLES: 5 BIOPSY CLIP SHAPE: HydroMARK PROXIMITY OF CLIP TO TARGET: Within the lesion IMPRESSION: Ultrasound-guided left axillary biopsy. When the pathology report is available, an addendum to this report will be made. ACR not applicable Dictated by Elder Choudhury MD @ 08/09/2024 11:25:12 AM (Electronically Signed)
== END 2024-08-09 08:57 | disposition home or self-care (01) ==
LOC: US 08:58
PROVIDERS: PCP Internal Medicine; Visit Provider Internal Medicine Hematology & Oncology
DX: R59.0 Localized enlarged lymph nodes (principal); C50.912 Malignant neoplasm of unspecified site of left female breast
CPT/HCPCS: 38505; 76882; 76942; 88305; A4648; A4649

== ENCOUNTER 2024-10-30 15:37 | Observation (INO) | payer MEDICARE, OTHER, SELFPAY ==
[2024-10-30] VITALS (20 sets, daily range): BP systolic 112–141; BP diastolic 68–107; PULSE 82–95; RESP 9–19; TEMP 36.5–37.1; O2SAT 96–100; BMI 26.0; BMI 26.4
--- OUTSIDE RECORDS SUMMARY | 2024-10-30 15:39 | XMS_ITS | Clinical Summary ---
Author Organization [employer] [facility] Address [address] [place] [id number] Care Team Providers Care Investigations Consultant Name Role Phone Ashlie Fregoso MD Primary Care Provider [phone] Encounters Date Type Department Care Team Description 08/09/2024 Lab Requisition [facility] [phone] Unknown, Doctor from Last 3 Months Social History Tobacco Use Types Packs/Day Years Used Date Smoking Tobacco: Never Assessed Comments Unknown Sex and Gender Information Value Date Recorded Sex Assigned at Not on file Legal Sex Female 2:57 PM CDT Gender Identity Not on file Sexual Orientation Not on file Plan of Treatment Health Maintenance Due Date Last Done Comments Tdap 1959 Depression screening for age 12+ 1960 BMI (ht and wt on same day) for age 18+ 1966 Hepatitis C screening for age 18-79 1966 Pneumococcal series for age 50+ (1 of 2 - PCV) 1967 Zoster (shingles) series for age 50+ (1 of 2) 1967 Tetanus booster 1968 DEXA/DXA scan for age 65+ 2013 Medicare Wellness for age 65+ 2013 COVID-19 vaccine series (3 - Moderna risk series) 02/22/2022 01/25/2022, 05/08/2021 RSV vaccine for adults or pr egnancy (1 - 1-dose 75+ series) 2023 Influenza Vaccine (Season Ended) 2025 Procedures Procedure Name Priority Date/Time Associated Diagnosis Comments LAB TRACKING EVENT Routine 08/09/2024 10 :08 AM MORTGAGE PROCESSING CLERK PATH BREAST CORE BIOPSY Routine 08/09/2024 10:08 AM MORTGAGE PROCESSING CLERK from Last 3 Months Results * LAB TRACKING EVENT (08/09/2024 10:08 AM MORTGAGE PROCESSING CLERK) Other (Other) Client Collect / Unknown 08/09/2024 10:08 AM MORTGAGE PROCESSING CLERK 08/09/2024 9:59 PM MORTGAGE PROCESSING CLERK us Doctor Unknown LAB BILL ONLY Final Result [facility] [address] [place] [address], * PATH BREAST CORE BIOPSY (08/09/2024 10:08 AM MORTGAGE PROCESSING CLERK) Case Report Pathology Report Case: [id number] Authorizing Provider: Unknown, Doctor Collected: 08/09/2024 1008 Ordering Location: [facility] Received: 08/10/2024 0916 Pathologist: Elder Yeh MD Specimen: Left Breast Core Ultrasound Biopsy 08/13/2024 9:48 AM MORTGAGE PROCESSING CLERK [facility] Final Diagnosis A) LEFT AXILLA, LYMPH NODE, ULTRASOUND-GUID ED CORE BIOPSY: 1. Fragments of benign lymph node 2. Negative for metastatic carcinoma in this sampling 08/13/2024 9:48 AM MORTGAGE PROCESSING CLERK [facility] at 0948 MORTGAGE PROCESSING CLERK Comment A) This is an image-guided breast biopsy. The pathologic findings should be correlated with radiologic and clinical findings prior to treatment decisions. Case seen in consultation with Dr. Flores. 08/13/2024 9:48 AM MORTGAGE PROCESSING CLERK [facility] Clinical Information A) Left axillary lymph node measuring 1.1 x 0.9 x 0.7 cm; PET avid; Recent diagnosis of left breast invasive ductal carcinoma, grade III ([id number]) and benign axillary lymph node biopsy ([id number]) 08/13/2024 9:48 AM MORTGAGE PROCESSING CLERK [facility] Gross Description A) Label: Patient's name and left axilla lymph node Description: 3 Fibrofatty core biopsies Size: Ranging from 0.3-0.7 cm in length by 0.2 cm in diameter Ink color: Black The specimen is submitted in toto in one cassette. Cold ischemic time: Less than 60 minutes, meets current ASCO/CAP guidelines. The specimen was fixed in formalin for a minimum of 6 hours and not longer than 72 hours. EVM 08/10/2024 08/13/2024 9:48 AM MORTGAGE PROCESSING CLERK [facility] Microscopic Description The final diagnosis is based on microscopic examination of appropriate sections of all specimens. A) The presence of black ink is confirmed on tissue sections. 08/13/2024 9:48 AM MORTGAGE PROCESSING CLERK [facility] Additional Information Interpreted at [facility] Laboratory - [address] [place] [address] 08/13/2024 9:48 AM MORTGAGE PROCESSING CLERK [facility] Other (Left Breast Core Ultrasound Biopsy) 08/09/2024 10:08 AM MORTGAGE PROCESSING CLERK 08/10/2024 9:16 AM MORTGAGE PROCESSING CLERK us Doctor Unknown PATHOLOGY/CYTOLOGY Final Result [facility] [address] [place] [address], from Last 3 Months Insurance MEDICARE PB ONLY [employer] MEDICARE PART A HB ONLY MEDICARE PART B HB ONLY Care Teams Investigations Consultant Relationship Specialty Start Date End Date Ashlie Fregoso MD [address] [place] [id number] PCP - General Internal Medicine 03/29/23
--- OUTSIDE RECORDS SUMMARY | 2024-10-30 15:39 | XMS_ITS | Clinical Summary ---
Author Organization [facility] Address [address], [place] [address] Care Team Providers Care Flight Superintendent Name Role Phone Found, No Pcp MD Primary Care Provider Unavailab le Source Comments You are receiving this document as you are listed as the primary care provider,follow-up provider, or the patient has been referred to you for consultation.This is in compliance with the Medicare and[facility] EHR Incentive Program,which states Providers who transition their patient to another setting of careor provider of care or refers their patient to another provider of care shouldprovide summary care record for each transition of care or referral. Candescent [employer] Allergies Active Allergy Reactions Criticality Noted Date Comments Cetirizine Hives High 06/14/2023 Medications No known medications Active Problems No known active problems Social History Tobacco Use Types Packs/Day Years Used Date Smoking Tobacco: Never Assessed Comments Unknown Sex and Gender Information Value Date Recorded Sex Assigned at Not on file Legal Sex Female 10:59 AM CDT Gender Identity Not on file Sexual Orientation Not on file Plan of Treatment Health Maintenance Due Date Last Done Comments Hep C Screening (Preventive Services) 1950 Medicare Annual Wellness Visit 1950 Dexa 2013 RSV Vaccine (1 - 1-dose 75+ series) 2023 COVID-19 Vaccine ( season) 2024 01/25/2022, 05/08/2021, 09/04/2020, Additional history exists Influenza Vaccine (#1) 2024 , 04/26/2022, 03/23/2021, Additional history exists DTaP/Tdap/Td Vaccine (4 - Tdap) 10/21/2032 10/21/2022, 07/12/2013, 07/12/2012 Pneumococcal Vaccine 50+ Yrs Completed 06/2019, 04/17/2014, 04/17/2014 Zoster/Shingles Vaccine Completed 06/05/20, 03/04/2019, 06/21/2012 HepA Vaccine Aged Out No longer eligi ble based on patient's age to complete this topic HepB Vaccine Aged Out No longer eligi ble based on patient's age to complete this topic Hib Vaccine Aged Out No longer eligi ble based on patient's age to complete this topic IPV (Polio) Vaccine Aged Out No longe r eligible based on patient's age to complete this topic MCV4 Vaccine Aged Out No longer eligi ble based on patient's age to complete this topic Meningococcal B Vaccine Aged Out No l onger eligible based on patient's age to complete this topic Insurance MEDICARE [facility] [employer] Care Teams Flight Superintendent Relationship Specialty Start Date End Date Found, No Pcp, [address] [place] [address] PCP - General 06/07/23
--- NOTE | 2024-10-30 15:51 | ED_ITS ---
HPI - SOB/Dyspnea General Time Seen by Provider: 15:51 Date Seen: 10/30/24 Chief Complaint: Shortness of Breath/Dyspnea Stated Complaint: sent from [facility] Time Seen by Provider: 10/30/24 15:43 Source: patient, family, RN notes reviewed and old records reviewed History of Present Illness HPI Narrative: 74-year-old patient with breast cancer currently on chemotherapy, history of hypertension, also history of diastolic dysfunction who presents today with shortness of breath and chest tightness with exercise. She notes for several months she has had decreased exercise tolerance related to her chemotherapy, however the last couple weeks has noticed sharp increasing shortness of breath with regular activity as well as chest tightness with exertion. She does not have any shortness of breath when she lays down, no leg swelling, no chest pain when she lays down or leans forward. No cough. Related Data Home Medications ?Medication ?Instructions ?Recorded ?Confirmed ascorbic acid (vitamin C) 500 mg 750 mg PO DAILY 07/20/22 10/30/24 tablet aspirin 81 mg tablet,delayed 81 mg PO DAILY 07/20/22 10/30/24 release calcium carbonate (Calcium 600) 600 mg PO QDAY 07/20/22 10/30/24 multivitamin 1 tab PO QAM 03/13/24 10/30/24 omega 1-vfi-oee-fish oil 100 2 cap PO DAILY 03/13/24 10/30/24 mg-160 mg-1,000 mg capsule (Fish Oil) coenzyme Q10 10 mg capsule (Co 10 mg PO QDAY 07/16/24 10/30/24 Q-10) phytosterol 300 mg-pantethine 100 2 cap PO DAILY 07/16/24 10/30/24 mg capsule (CholestOff Complete) colostrum, bovine PO DAILY 07/25/24 10/30/24 ketoconazole 2 % topical cream applic topical DAILY 08/06/24 10/30/24 polyethylene glycol 3350 17 gram 17 g PO QDAY PRN 10/15/24 10/30/24 oral powder packet (Miralax) aluminum hydrox-magnesium carb 160 2 tab PO QID PRN 10/16/24 10/30/24 mg-105 mg chewable tablet (Gaviscon Extra Strength) Previous Rx's ?Medication ?Instructions ?Recorded albuterol sulfate 90 mcg/actuation 2 puff inhalation Q6H PRN 03/13/24 aerosol inhaler shortness of breath or wheezing #8.5 grams amlodipine 2.5 mg tablet 2.5 mg PO QDAY #90 tabs 03/13/24 ondansetron HCl 4 mg tablet 4 mg PO Q8H #60 tabs 07/16/24 prochlorperazine maleate 5 mg 5 mg PO Q8H PRN nausea and 07/16/24 tablet (Compazine) vomiting #60 tabs Magic Mouthwash 5 ml PO QID #120 mL 08/13/24 (Lidocaine/Benadryl/Maalox) 120 mL suspension lactulose 10 gram/15 mL oral 10 g (15 mL) PO ONCE #300 mL 08/27/24 solution dexamethasone 4 mg tablet 8 mg (2 x 4 mg) PO QDAY #24 tabs 09/24/24 olanzapine 2.5 mg tablet 2.5 mg PO QHS #30 tabs 09/24/24 Allergies Allergy/AdvReac Type Severity Reaction Status Date / Time cetirizine Allergy Unknown Drowsy Verified 10/30/24 16:28 clove Allergy Verified 10/30/24 16:28 milk Allergy Verified 10/30/24 16:28 soy Allergy Verified 10/30/24 16:28 wheat Allergy Verified 10/30/24 16:28 [facility] Medical History (Updated 10/30/24 @ 18:58 by Charles Carver MD) Cerebrovascular disease ?I67.9 - Cerebrovascular disease, unspecified (ICD-10) Diastolic dysfunction ?I51.89 - Other ill-defined heart diseases (ICD-10) Gastroesophageal reflux disease ?K21.9 - Gastro-esophageal reflux disease without esophagitis (ICD-10) Hyperlipidemia ?E78.5 - Hyperlipidemia, unspecified (ICD-10) Osteopenia (2020) ?M85.80 - Other specified disorders of bone density and structure, unspecifi ed site (ICD-10) Polyp of colon (11/05/20) ?K63.5 - Polyp of colon (ICD-10) Essential hypertension ?I10 - Essential (primary) hypertension (ICD-10) Surgical History History of basal cell carcinoma excision ?Z98.890 - Other specified postprocedural states (ICD-10) ?Z85.828 - Personal history of other malignant neoplasm of skin (ICD-10) History of total hysterectomy with bilateral salpingo-oophorectomy (BSO) (1986) ?Z90.710 - Acquired absence of both cervix and uterus (ICD-10) ?Z90.722 - Acquired absence of ovaries, bilateral (ICD-10) ?Z90.79 - Acquired absence of other genital organ(s) (ICD-10) History of tonsillectomy ?Z90.89 - Acquired absence of other organs (ICD-10) History of malignant melanoma (05/2016) ?Z85.820 - Personal history of malignant melanoma of skin (ICD-10) Family History (Updated 07/03/24 @ 10:49 by Arianne Grace MD) Mother Breast cancer, Onset Age: 59 Uncle Colon cancer Aunt Colon cancer Diabetes Brother Diabetes Prostate cancer Father Kidney disease Sister Thyroid disease Daughter Thyroid disease Social History (Updated 07/03/24 @ 10:50 by Arianne Grace MD) Narrative: 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 What is your current living situation?: I presently have a place to live Problems where you live: no known problems In the past 12 months, utilities in danger of being shut off: no In past 12 months, lack of transportation kept you from medical appts, meetings, work, or getting things needed for daily living: no In the past 12 mos, have been you worried that your food would run out before you had money to buy more?: never true In the past 12 mos, the food you bought just didn't last and you didn't have money to buy more?: never true Smoking Status: Never smoker How often do you have a drink containing alcohol: never How often do you have six or more drinks on one occasion: Never AUDIT-C Alcohol total score: 0 Non-prescribed substance use: denies use Caffeine: No How often does anyone, including family, friends and others, physically hurt you : never How often does anyone, including family, friends and others, insult or talk down to you: never How often does anyone, including family, friends and others, threaten you with harm: never How often does anyone, including family, friends and others, scream or curse at you: never Are you using contraception or practicing any form of control: No (menopause) Exam Narrative: Exam Narrative: General: Well-developed and well-nourished, no acute distress Head: Atraumatic and normocephalic Eyes: Pupils are equal reactive, extraocular motions intact, conjunctiva clear ENT: External nose and ears are normal, posterior pharynx without erythema or exudate Neck: No midline cervical tenderness, full spontaneous range of motion the neck, trachea midline, no adenopathy Heart: Regular rate and rhythm no murmurs or thrills Lungs: Clear to auscultation bilaterally without wheezes or crackles Abdomen: Soft, nontender, nondistended with active bowel sounds Musculoskeletal: No tenderness, deformity, or edema Neurologic: Awake, alert, and oriented x3, no gross focal neurologic deficits, cranial nerves intact as tested Psych: Mood and affect are appropriate Skin: No rashes Const: Vital Signs, click to edit/add: Vital Signs - 24 hr 10/30/24 15:44 10/30/24 16:49 10/30/24 17:00 Temperature 97.7 F Pulse Rate 86 86 Pulse Rate [Pulse Oximeter] 87 Respiratory Rate 18 13 17 Blood Pressure Blood Pressure [Ri ght Upper Arm] 141/96 H Pulse Oximetry 99 97 99 Oxygen Delivery Me thod Room Air 10/30/24 17:01 Temperature Pulse Rate 93 Pulse Rate [Pulse Oximeter] Respiratory Rate 17 Blood Pressure 121/77 Blood Pressure [Ri ght Upper Arm] Pulse Oximetry 98 Oxygen Delivery Me thod Course Course ED Course: Reviewed oncologist's note from October 15 patient was seen for follow-up of left triple negative breast cancer, recently started adriamycin cyclophosphamide pembrolizumab. Patient presents today with dyspnea on exertion and chest tightness with exertion, she has had progressive decrease in exercise tolerance or sometime but symptoms of chest tightness and dyspnea on exertion of gotten markedly worse in the last couple of weeks. She has no orthopnea, no cough, no lower extremity swelling. Patient's vital is stable here with no tachycardia or hypoxia, although was noted to be tachycardic at infusion clinic today. Labs from include fusion therapy today with white blood cell count 18.9, hemoglobin 10.4. Symptoms today could be from pulmonary embolism, heart failure exacerbation, cardiomyopathy or pericarditis related to chemotherapy, or acute coronary syndrome. Patient had an echocardiogram on July 16 which showed normal ejection fraction and dilated ascending aorta. EKG, CT scan of the chest ordered. Reevaluation(s) Time of Reevaluation #1: 16:13 Reevaluation #1: EKG independently interpreted by me performed at 4:12 p.m. demonstrates sinus rhythm rate 84, no acute ST elevations or depressions, normal intervals, normal axis, QTC 451, TN 136. Compared to prior March 2023, no change Time of Reevaluation #2: 16:30 Reevaluation #2: Labs and fell interpreted by me with troponin 0.01 which is likely negative given onset of symptoms a over week ago. CT scan of the chest independently interpreted by me without evidence of pulmonary embolism, no pericardial effusion, no pleural effusion or pulmonary edema. Time of Reevaluation #3: 17:46 Reevaluation #3: Care discussed with Dr. Rush hematology/oncology who notes Keytruda can rarely cause myocarditis but would present as typical she findings of myocardial damage including elevated troponin, EKG changes. We discussed my plan for admission for further ACS evaluation including serial troponins and echocardiogram, she is in agreement with this plan. Additional Reevaluation(s): 17:55 updated patient and spouse with findings and plan, with a long discussion about concerns for possible myocarditis related to Keytruda, also discussed spectrum of acute coronary syndrome and limitations of emergency department testing. I recommended admission for serial troponins and further evaluation including echocardiogram or stress test. Repeat troponin is pending. If this is stable, recommend admission to [facility]. If up trending, plan for transfer. 18:57 Repeat troponin 0. Updated patient she is agreeable to overnight observation for further cardiac testing. Care discussed with Dr. Burger, hospitalist who accepts patient for observation. Vital Signs Vital signs: Initial Vital Signs Temperature 97.7 F 10/30/24 15:44 Temperature Source Temporal Artery Scan 10/30/24 15:44 Pulse Rate 87 10/30/24 15:44 Respiratory Rate 18 10/30/24 15:44 Blood Pressure 141/96 H 10/30/24 15:44 Blood Pressure Mean 111 H 10/30/24 15:44 Blood Pressure Position High-Fowlers 10/30/24 15:44 Pulse Oximetry 99 10/30/24 15:44 Oxygen Delivery Method Room Air 10/30/24 15:44 Vital Signs Temperature 97.7 F 10/30/24 15:44 Pulse Rate 87 10/30/24 15:44 Respiratory Rate 18 10/30/24 15:44 Blood Pressure 141/96 H 10/30/24 15:44 Pulse Oximetry 99 10/30/24 15:44 Oxygen Delivery Method Room Air 10/30/24 15:44 Temperature 97.7 F 10/30/24 15:44 Pulse Rate 93 10/30/24 17:01 Respiratory Rate 17 10/30/24 17:01 Blood Pressure 121/77 10/30/24 17:01 Pulse Oximetry 98 10/30/24 17:01 Oxygen Delivery Method Room Air 10/30/24 15:44 MDM - SOB/Dyspnea Lab Data Labs: Lab Results 10/30/24 10/30/24 10/30/24 Range/Units 15:56 16:20 18:17 Magnesium 2.0 (1.5-2.6) mg/dL NT-Pro-B Natriuret Pep 250 pg/mL POC Troponin I 0.01 0.00 L (0.01-0.04) ng/ml Discharge Plan Discharge Clinical Impression: Breast cancer, Exertional chest pain, Exertional dyspnea Patient Disposition: Admitted As Observation Prescriptions: No Action coenzyme Q10 [Co Q-10] 10 mg capsule 10 mg PO QDAY CholestOff Complete 300-100 mg capsule 2 cap PO DAILY Patient Comments: cholestoff ondansetron HCl 4 mg tablet 4 mg PO Q8H Qty: 60 1RF prochlorperazine maleate [Compazine] 5 mg tablet 5 mg PO Q8H PRN (Reason: nausea and vomiting) Qty: 60 1RF Magic Mouthwash (Lidocaine/Benadryl/Maalox) 120 mL suspension 5 ml PO QID Qty: 120 1RF Rx Instructions: Lidocaine Viscous 2 % mucosal solution 40 mL; Maalox 200 mg-200 mg-20 mg/5 mL oral suspension 40 mL; Benadryl 12.5 mg/5 mL oral elixir 40 mL; Per 120 mLSWISH AND SPIT. MAY COMPOUND IF FIRST PRODUCT IS NOT AVAILABLE. aspirin 81 mg tablet,delayed release (DR/EC) 81 mg PO DAILY ascorbic acid (vitamin C) 500 mg tablet 750 mg PO DAILY calcium carbonate [Calcium 600] 600 mg calcium (1,500 mg) tablet 600 mg PO QDAY multivitamin Tablet 1 tab PO QAM Fish Oil 100-160-1,000 mg capsule 2 cap PO DAILY amlodipine 2.5 mg tablet 2.5 mg PO QDAY Qty: 90 3RF albuterol sulfate 90 mcg/actuation HFA aerosol inhaler 2 puff inhalation Q6H PRN (Reason: shortness of breath or wheezing) Qty: 8.5 5RF lactulose 10 gram/15 mL solution 10 g PO ONCE Qty: 300 0RF dexamethasone 4 mg tablet 8 mg PO QDAY Qty: 24 0RF Rx Instructions: take 2 tablets in the morning with food on days 2, 3, and 4 of each cycle. olanzapine 2.5 mg tablet 2.5 mg PO QHS Qty: 30 0RF Rx Instructions: Take at bedtime the night of chemotherapy and for 4 days after each chemotherapy dose. colostrum, bovine PO DAILY ketoconazole 2 % cream topical DAILY Gaviscon Extra Strength 160-105 mg tablet,chewable 2 tab PO QID PRN polyethylene glycol 3350 [Miralax] 17 gram powder in packet 17 g PO QDAY PRN Follow Up/Referrals: Ashlie Fregoso MD [Primary Care Provider] -
--- NOTE | 2024-10-30 15:55 | CRLHL7_ITS ---
For Patients: As a result of the Century Cures Act, medical imaging exams and procedure reports are released immediately into your electronic medical record. You may view this report before your referring provider. If you have questions, please contact your health care provider. INDICATION: Dyspnea. Chest pain. TECHNIQUE: Multiplanar CT pulmonary angiogram was performed after the administration of 95 mL of Isovue 370 intravenous contrast. COMPARISON: Chest radiographs 07/19/2024. FINDINGS: Lines/devices: Right-sided Port-A-Cath with tip terminating in the lower SVC. Lower neck: The visualized thyroid is unremarkable. Cardiovascular: Contrast opacification of the pulmonary arterial tree is adequate. Heart size is normal. Thoracic aorta and pulmonary artery are normal in caliber. No significant atherosclerotic calcifications of the aortic arch. Coronary arterial calcifications. No pulmonary embolus. Mediastinum and lymph nodes: Unremarkable. No pathologic mediastinal or hilar lymphadenopathy by size criteria. Lungs: No focal consolidation. Dependent atelectasis. Linear bandlike opacification of the lung bases bilaterally, likely subsegmental atelectasis and/or scarring. There are several scattered pulmonary micronodules measuring up to 3 mm, for example in the left lower lobe (6:93), attention on follow-up imaging. Airways: Trachea remains patent and midline. Mild diffuse peribronchial wall thickening. Pleura: No pleural effusions or pneumothorax. Chest wall: Left axillary biopsy clip. Prominent axillary lymph nodes that do not meet size criteria for lymphadenopathy. Bones: No acute osseous abnormalities. Mild degenerative changes of the thoracic spine. Upper abdomen: Lobulated simple appearing cystic lesion within the left hepatic lobe, probably hepatic cysts, poorly characterized on this nondedicated examination. No acute findings in the visualized upper abdomen. No reflux of contrast material into the IVC. IMPRESSION: 1. No pulmonary embolus. No CT evidence of right heart strain. 2. No CT evidence of intrathoracic malignancy or metastatic disease. No pathologic lymphadenopathy. 3. No acute intrathoracic findings. Please note that all CT scans at this facility use dose modulation, iterative reconstruction, and/or weight-based dosing when appropriate to reduce radiation dose to as low as reasonably achievable. Dictated by Cortez Moran MD @ 10/30/2024 4:53:09 PM (Electronically Signed)
[2024-10-30 16:25] LABS: Troponin, Point-of-Care* 0.01 ng/ml (0.01-0.04)
[2024-10-30 17:12] LABS: NT Pro B Type NatriureticPept* 250 pg/mL
[2024-10-30 19:30] LABS: PCR FLU A Negative PCR FLU A (Negative); PCR FLU B Negative PCR FLU B (Negative); PCR RSV Negative PCR RSV (Negative); SARS PCR* Negative SARS-CoV-2 (Negative)
--- NOTE | 2024-10-30 19:47 | P.IMHP_ITS ---
Assessment and Plan Assessment and plan (1) Exertional dyspnea: Problem comment: 74-year-old female undergoing chemotherapy/immunotherapy for breast cancer has developed exertional dyspnea and chest pain. Considerations include cardiac toxicity/myocarditis/pericarditis from immune therapy/checkpoint inhibitor Keytruda or cardiac toxicity from doxorubicin or the new development of [place] heart disease or lung disease. Normal chest CT for PE and normal troponins are reassuring. Cardiac monitoring and obtain echo cardiogram. Status: Acute (2) Exertional chest pain: Problem comment: See 1. Above Status: Acute (3) Nausea: Problem comment: Favor chemotherapy toxicity as the primary cause of this. If gastrointestinal symptoms do not resolve with time consider biliary disease as well. Status: Acute (4) Heartburn: Problem comment: Symptoms suggest gastroesophageal reflux disease possibly related to chemotherapy. 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 Chemotherapy and immune therapy as noted above Status: Acute Plan 74-year-old female admitted to the hospital for evaluation of exertional chest pain and dyspnea as well as other symptoms following chemotherapy and immune therapy on October 15. I favor toxicity from the treatment as the most likely cause. Other considerations include development of primary heart disease. Admitted for monitoring of symptoms, cardiac monitoring. Total Time Spent Total Time Spent: Total time spent is 75 minutes in reviewing outside records, evaluation and management, coordination of care and discussing with patient and and other providers ongoing evaluation and management of symptoms. Hospitalist- H&P: HPI History of Present Illness Date Seen: 10/30/24 Chief complaint: from [facility] Narrative: Paloma Sommers is a 74 year old female undergoing chemotherapy an immune therapy for breast cancer presents with a 8 or 9 day history of exertional chest tightness and dyspnea. She reports that she has had some increased exertional dyspnea for months but this has gotten much worse after her last round of chemo in immune therapy on October 15. She has no symptoms at rest. She has had no fever. No cough. She does note over the same timeframe that she has developed prominent symptoms of gastroesophageal reflux with a burning sensation in her epigastrium and chest after she eats. This is different than her exertional chest tightness. She also reports that she has had significant nausea and significant weight loss in the last 2 weeks. She has been on immune and chemotherapy since July 23 starting with pembrolizumab and carbo/Taxol. She reports having tolerated this well. On October 15 she started cycle 1 of doxorubicin, cyclophosphamide, peg filgrastim and pembrolizumab. Starting the week after that she has had problems with nausea, heartburn, exertional dyspnea and chest tightness. She also reports some loss of taste and weight loss over the last 2 weeks, possibly up to 10 lb. She also notes tachycardia with pulse in the 110-120 range. No abdominal pain. Bowel function is normal except for occasional constipation managed with la xatives. No bladder problems. No extremity edema. No orthopnea She does have a history of hypertension and hyperlipidemia but after losing significant weight over the last 2 years she reports those problems have resolved. She does not have any history of heart disease. She had a stress echo test 03/29/2023 which was normal except for the finding of a ascending aorta dilated to 4 cm. Subsequent echocardiograms have shown no change in that ascending aorta. Her last echocardiogram was 07/16/2024 and was otherwise normal. She has had no other history of heart or lung disease, no dysrhythmia, no history of thromboembolism. Review of Systems Narrative: She reports feeling well other than symptoms as noted above. [facility] Medical History Oral mucositis ?K12.30 - Oral mucositis (ulcerative), unspecified (ICD-10) Cerebrovascular disease ?I67.9 - Cerebrovascular disease, unspecified (ICD-10) Diastolic dysfunction ?I51.89 - Other ill-defined heart diseases (ICD-10) Gastroesophageal reflux disease ?K21.9 - Gastro-esophageal reflux disease without esophagitis (ICD-10) Hyperlipidemia ?E78.5 - Hyperlipidemia, unspecified (ICD-10) Osteopenia (2019) ?M85.80 - Other specified disorders of bone density and structure, unspecified site (ICD-10) Polyp of colon (11/05/20) ?K63.5 - Polyp of colon (ICD-10) Essential hypertension ?I10 - Essential (primary) hypertension (ICD-10) Surgical History History of basal cell carcinoma excision ?Z98.890 - Other specified postprocedural states (ICD-10) ?Z85.828 - Personal history of other malignant neoplasm of skin (ICD-10) History of total hysterectomy with bilateral salpingo-oophorectomy (BSO) (1986) ?Z90.710 - Acquired absence of both cervix and uterus (ICD-10) ?Z90.722 - Acquired absence of ovaries, bilateral (ICD-10) ?Z90.79 - Acquired absence of other genital organ(s) (ICD-10) History of tonsillectomy ?Z90.89 - Acquired absence of other organs (ICD-10) History of malignant melanoma (05/2016) ?Z85.820 - Personal history of malignant melanoma of skin (ICD-10) Family History Mother Breast cancer, Onset Age: 59 Uncle Colon cancer Aunt Colon cancer Diabetes Brother Diabetes Prostate cancer Father Kidney disease Sister Thyroid disease Daughter Thyroid disease Social History (Updated 10/30/24 @ 20:13 by Dakota Burger MD) Narrative: 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 Code status is full. What is your current living situation?: I presently have a place to live Problems where you live: no known problems In the past 12 months, utilities in danger of being shut off: no In past 12 months, lack of transportation kept you from medical appts, meetings, work, or getting things needed for daily living: no In the past 12 mos, have been you worried that your food would run out before you had money to buy more?: never true In the past 12 mos, the food you bought just didn't last and you didn't have money to buy more?: never true Smoking Status: Never smoker How often do you have a drink containing alcohol: never How often do you have six or more drinks on one occasion: Never AUDIT-C Alcohol total score: 0 Non-prescribed substance use: denies use Caffeine: No How often does anyone, including family, friends and others, physically hurt you : never How often does anyone, including family, friends and others, insult or talk down to you: never How often does anyone, including family, friends and others, threaten you with harm: never How often does anyone, including family, friends and others, scream or curse at you: never Are you using contraception or practicing any form of control: No (menopause) Meds Home Medications and Allergies Home Medications ?Medication ?Instructions ?Recorded ?Confirmed ?Type ascorbic acid (vitamin C) 500 mg 750 mg PO DAILY 07/20/22 10/30/24 History tablet aspirin 81 mg tablet,delayed 81 mg PO DAILY 07/20/22 10/30/24 History release calcium carbonate (Calcium 600) 600 mg PO QDAY 07/20/22 10/30/24 History multivitamin 1 tab PO QAM 03/13/24 10/30/24 History omega 1-lbl-vzj-fish oil 100 2 cap PO DAILY 03/13/24 10/30/24 History mg-160 mg-1,000 mg capsule (Fish Oil) coenzyme Q10 10 mg capsule (Co 10 mg PO QDAY 07/16/24 10/30/24 History Q-10) phytosterol 300 mg-pantethine 100 2 cap PO DAILY 07/16/24 10/30/24 History mg capsule (CholestOff Complete) colostrum, bovine PO DAILY 07/25/24 10/30/24 History ketoconazole 2 % topical cream applic topical DAILY 08/06/24 10/30/24 History polyethylene glycol 3350 17 gram 17 g PO QDAY PRN 10/15/24 10/30/24 History oral powder packet (Miralax) aluminum hydrox-magnesium carb 160 2 tab PO QID PRN 10/16/24 10/30/24 History mg-105 mg chewable tablet (Gaviscon Extra Strength) Allergies Allergy/AdvReac Type Severity Reaction Status Date / Time cetirizine Allergy Unknown Drowsy Verified 10/30/24 16:28 clove Allergy Verified 10/30/24 16:28 milk Allergy Verified 10/30/24 16:28 soy Allergy Verified 10/30/24 16:28 wheat Allergy Verified 10/30/24 16:28 Exam Narrative: Exam Narrative: She is alert and appears in no distress. Eyes are normal. Oropharynx is normal. No mucositis. No erythema. Neck is supple without mass or adenopathy. No jugular venous distension. Respirations are clear to auscultation. Breathing is unlabored. Good air exchange all lung osborne. No rub. Cardiovascular: S1, S2, regular rate and rhythm. No murmur gallop or rub. Abdomen: Bowel sounds active. Abdomen is soft without tenderness or mass. Upper and lower extremities with good perfusion and good pulses. She has no significant lower extremity edema. She moves all 4 extremities well. No rash. Const: Vital Signs, click to edit/add: Vital Signs - 24 hr 10/30/24 15:44 10/30/24 16:49 10/30/24 17:00 Temperature 97.7 F Pulse Rate 86 86 Pulse Rate [Pulse Oximeter] 87 Respiratory Rate 18 13 17 Blood Pressure Blood Pressure [Ri ght Upper Arm] 141/96 H Pulse Oximetry 99 97 99 Oxygen Delivery Me thod Room Air 10/30/24 17:01 10/30/24 17:02 10/30/24 17:15 Temperature Pulse Rate 93 85 89 Pulse Rate [Pulse Oximeter] Respiratory Rate 17 14 13 Blood Pressure 121/77 Blood Pressure [Ri ght Upper Arm] Pulse Oximetry 98 99 98 Oxygen Delivery Me thod 10/30/24 17:30 10/30/24 17:31 10/30/24 17:45 Temperature Pulse Rate 82 85 83 Pulse Rate [Pulse Oximeter] Respiratory Rate 19 16 Blood Pressure 123/78 Blood Pressure [Ri ght Upper Arm] Pulse Oximetry 99 98 98 Oxygen Delivery Me thod 10/30/24 18:00 10/30/24 18:01 10/30/24 18:15 Temperature Pulse Rate 92 95 84 Pulse Rate [Pulse Oximeter] Respiratory Rate 16 13 Blood Pressure 124/107 H Blood Pressure [Ri ght Upper Arm] Pulse Oximetry 97 98 98 Oxygen Delivery Me thod 10/30/24 18:30 10/30/24 18:31 10/30/24 18:45 Temperature Pulse Rate 90 90 91 Pulse Rate [Pulse Oximeter] Respiratory Rate 18 10 L 13 Blood Pressure 128/88 Blood Pressure [Ri ght Upper Arm] Pulse Oximetry 99 97 98 Oxygen Delivery Me thod 10/30/24 19:00 10/30/24 19:01 Temperature Pulse Rate 86 88 Pulse Rate [Pulse Oximeter] Respiratory Rate 13 9 L Blood Pressure 120/75 Blood Pressure [Ri ght Upper Arm] Pulse Oximetry 100 98 Oxygen Delivery Me thod Documenting provider has reviewed patient's vital signs: yes Hospitalist - H&P: Result Imaging CT scan - chest: Radiologist's impression: INDICATION: Dyspnea. Chest pain. TECHNIQUE: Multiplanar CT pulmonary angiogram was performed after the administration of 95 mL of Isovue 370 intravenous contrast. COMPARISON: Chest radiographs 07/19/2024. FINDINGS: Lines/devices: Right-sided Port-A-Cath with tip terminating in the lower SVC. Lower neck: The visualized thyroid is unremarkable. Cardiovascular: Contrast opacification of the pulmonary arterial tree is adequate. Heart size is normal. Thoracic aorta and pulmonary artery are normal in caliber. No significant atherosclerotic calcifications of the aortic arch. Coronary arterial calcifications. No pulmonary embolus. Mediastinum and lymph nodes: Unremarkable. No pathologic mediastinal or hilar lymphadenopathy by size criteria. Lungs: No focal consolidation. Dependent atelectasis. Linear bandlike opacification of the lung bases bilaterally, likely subsegmental atelectasis and/or scarring. There are several scattered pulmonary micronodules measuring up to 3 mm, for example in the left lower lobe (6:93), attention on follow-up imaging. Airways: Trachea remains patent and midline. Mild diffuse peribronchial wall thickening. Pleura: No pleural effusions or pneumothorax. Chest wall: Left axillary biopsy clip. Prominent axillary lymph nodes that do not meet size criteria for lymphadenopathy. Bones: No acute osseous abnormalities. Mild degenerative changes of the thoracic spine. Upper abdomen: Lobulated simple appearing cystic lesion within the left hepatic lobe, probably hepatic cysts, poorly characterized on this nondedicated examination. No acute findings in the visualized upper abdomen. No reflux of contrast material into the IVC. IMPRESSION: 1. No pulmonary embolus. No CT evidence of right heart strain. 2. No CT evidence of intrathoracic malignancy or metastatic disease. No pathologic lymphadenopathy. 3. No acute intrathoracic findings.
[2024-10-30] MEDS: OMEPRAZOLE 20 MG CAPSULE DR 40 MG PO (20:49)
[2024-10-30] MEDS: HEPARIN 500 UNIT/5 ML SYRINGE IVF (20:50)
[2024-10-30] MEDS: SODIUM CHLORIDE 0.9 % (FLUSH) 10 ML SYRINGE 5 ML IVF (20:50)
[2024-10-31 03:00] VITALS: BP 112/75; PULSE 81; RESP 14; TEMP 36.6; O2SAT 97
[2024-10-31] MEDS: OMEPRAZOLE 20 MG CAPSULE DR 40 MG PO (06:09)
[2024-10-31] MEDS: HEPARIN 500 UNIT/5 ML SYRINGE IVF ×2 (06:10→13:40)
--- NOTE | 2024-10-31 06:56 | PC.NURSE ---
End of shift report: VS WNL. Afebrile. Denies nausea. On RA. Denies pain. Denies SOB at rest. Ind in room. Port is locked and intact in right chest. Call light within reach.?
[2024-10-31 06:59] LABS: Basophils Percent Auto 0.3 % (0.0-3.0); Eosinophils Percent Auto 0.1 % (0.0-7.0); Hematocrit 30.3 % (33.0-51.0); Hemoglobin* 9.9 gm/dL (12.0-16.0); Immature Granulocytes Pct Auto 8.2 %; Lymphocytes Percent Auto 28.3 % (20-44); Mean Corpuscular HGB Conc 33 gm/dL (32-36); Mean Corpuscular Hemoglobin 32 pg (26-34); Mean Corpuscular Volume 97 fL (80-100); Monocytes Percent Auto 12.8 % (0.0-11.0); Neutrophils Percent Auto 50.3 % (42.0-72.0); Platelet Count* 329 K/uL (140-440); RDW Coefficient of Variation % 16.3 % (11.5-15.5); Red Blood Count 3.12 m/uL (4.00-5.20); White Blood Count* 12.46 K/uL (4.50-11.00)
[2024-10-31 07:04] LABS: Chloride* 104 mmol/L (96-114); Sodium* 139 mmol/L (135-149)
[2024-10-31 07:08] LABS: Anion Gap 7 mEq/L (7-15); Blood Urea Nitrogen* 15 mg/dL (7-30); Calcium* 9.4 mg/dL (8.4-10.6); Carbon Dioxide* 28 mmol/L (20-32); Creatinine* 0.6 mg/dL (0.5-1.5); Est. Creatinine Clearance* 37.85; Estimated Glomerular Filt Rate 93 ml/min; Glucose* 91 mg/dL (60-115)
[2024-10-31 07:11] LABS: C Reactive Protein* 0.8 mg/dL (0.5-1.0); Slide Review Reflex Yes
[2024-10-31 07:25] VITALS: PULSE 85
[2024-10-31 07:26] LABS: Troponin I* 0.08 ng/mL (0.01-0.04)
[2024-10-31 07:44] LABS: Slide Review Acceptable Review (Acceptable)
[2024-10-31 08:00] VITALS: PULSE 90
[2024-10-31 08:55] VITALS: BP 107/72; PULSE 90; RESP 16; TEMP 36.8; O2SAT 97
[2024-10-31 08:57] VITALS: BMI 26.2
[2024-10-31] MEDS: ASPIRIN 81 MG TABLET EC PO (08:58)
[2024-10-31] MEDS: AMLODIPINE 5 MG TABLET 2.5 MG PO (08:58)
[2024-10-31 10:39] LABS: Troponin I* 0.07 ng/mL (0.01-0.04)
[2024-10-31 11:00] VITALS: BP 114/71; PULSE 84; RESP 16; TEMP 36.7; O2SAT 99
--- NOTE | 2024-10-31 11:18 | PM.DS1 ---
DS: Providers Provider Date Seen: 10/31/24 Date of admission: 10/30/24 19:48 Primary care physician: Ashlie Fregoso MD Admitting Clinician: Dakota Burger MD Attending Physician on discharge: Isa Cuellar [facility], PA-C Date of Discharge: 10/31/24 DS: Diagnosis Discharge Diagnosis (1) Exertional dyspnea: Status: Acute Problem details: 74-year-old female undergoing chemotherapy/immunotherapy for breast cancer has developed exertional dyspnea and chest pain following last therapy on 10/15/24. No previous symptoms until change in therapy regimen. Considerations include cardiac toxicity/myocarditis/pericarditis from immune therapy/checkpoint inhibitor Keytruda or cardiac toxicity from doxorubicin or the new development of [place] heart disease or lung disease. Normal chest CT - negative for PE. BNP 250. Telemetry overnight Echocardiogram: Final Impressions: 1. Normal left ventricular size, normal wall thickness, normal global systolic function, calculated EF of 71 %. 2. Right ventricular cavity size is normal, global systolic RV function is normal. 3. Normal left atrium size. 4. The aortic valve is normal, no stenosis and no regurgitation. 5. The mitral valve is normal, trace mitral regurgitation. 6. Tricuspid valve is normal, trace tricuspid regurgitation. 7. Dilated ascending aorta, diameter of 4.1 cm (upper limit of normal for age, sex, and BSA is 3.9 cm), Height Index 2.61. 8. No pericardial effusion. 9. There is echolucent mass seen in the liver. This is consistent with cyst. Suggest dedicated liver US and clinical correlation for further evaluation. Day after admission, patient reports feeling much better, requesting to discharge to home. Echocardiogram reassuring. Ascending aorta stable. Discussed with Darya Roblero, Oncology. Will follow up in Oncology clinic on Tuesday for next set of treatment. (2) Exertional chest pain: Status: Acute Problem details: See 1. Above (3) Nausea: Status: Acute Problem details: Favor chemotherapy toxicity as the primary cause of this. If gastrointestinal symptoms do not resolve with time consider biliary disease as well. LFTs unremarkable. Patient does not feel this is related to her gallbladder. (4) Heartburn: Status: Acute Problem details: Symptoms suggest gastroesophageal reflux disease possibly related to chemotherapy. 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 Chemotherapy and immune therapy as noted above S/p 4 cycles of neoadjuvant pembrolizumab + carboplatin and paclitaxel days 1,8,15 Current, cycle 1 of neoadjuvant doxorubicin + cyclophosphamide with pegfilgrastim and cycle 5 pembrolizumab on 10/15/24 (6) Elevated troponin: Status: Acute Problem details: POC troponins in ED negative Serum troponins 0.05 -> 0.08 -> 0.07 EKG NSR, rate 87, qtc 478 (7) Liver mass: Status: Acute Problem details: Incidental finding on echocardiogram 10/31/2024 Outpatient ultrasound recommended DS: Summary Hospital Course Hospital Course: Course of care and details as noted above. Discussed with Darya Deleon, Oncology. EKG reassuring. Troponins stable. ECHO completed for baseline, results pending. Adverse effects suspected. Monitor for cumulative effects. Remainder of chronic medical comorbidities were monitored and managed with home medications. Status at Discharge Functional status at discharge: independent ambulation Overall status at discharge: patient is back to baseline Time Spent with Patient Time attestation: Total time spent providing and/or coordinating discharge services: Time spent: Greater than 30 minutes Exam Narrative: Exam Narrative: PHYSICAL EXAM General: Pleasant, conversant, NAD Cardiovascular: RRR Pulmonary: No dyspnea Neurological: Alert, answering questions appropriately Skin: Warm, dry. Const: Vital Signs, click to edit/add: Vital Signs - 24 hr 10/30/24 15:44 10/30/24 16:49 10/30/24 17:00 Temperature 97.7 F Pulse Rate 86 86 Pulse Rate [Left R adial] Pulse Rate [Pulse Oximeter] 87 Respiratory Rate 18 13 17 Blood Pressure Blood Pressure [Le ft Arm] Blood Pressure [Ri ght Upper Arm] 141/96 H Pulse Oximetry 99 97 99 Oxygen Delivery Me thod Room Air 10/30/24 17:01 10/30/24 17:02 10/30/24 17:15 Temperature Pulse Rate 93 85 89 Pulse Rate [Left R adial] Pulse Rate [Pulse Oximeter] Respiratory Rate 17 14 13 Blood Pressure 121/77 Blood Pressure [Le ft Arm] Blood Pressure [Ri ght Upper Arm] Pulse Oximetry 98 99 98 Oxygen Delivery Me thod 10/30/24 17:30 10/30/24 17:31 10/30/24 17:45 Temperature Pulse Rate 82 85 83 Pulse Rate [Left R adial] Pulse Rate [Pulse Oximeter] Respiratory Rate 19 16 Blood Pressure 123/78 Blood Pressure [Le ft Arm] Blood Pressure [Ri ght Upper Arm] Pulse Oximetry 99 98 98 Oxygen Delivery Me od 10/30/24 18:00 10/30/24 18:01 10/30/24 18:15 Temperature Pulse Rate 92 95 84 Pulse Rate [Left R adial] Pulse Rate [Pulse Oximeter] Respiratory Rate 16 13 Blood Pressure 124/107 H Blood Pressure [Le ft Arm] Blood Pressure [Ri ght Upper Arm] Pulse Oximetry 97 98 98 Oxygen Delivery Me thod 10/30/24 18:30 10/30/24 18:31 10/30/24 18:45 Temperature Pulse Rate 90 90 91 Pulse Rate [Left R adial] Pulse Rate [Pulse Oximeter] Respiratory Rate 18 10 L 13 Blood Pressure 128/88 Blood Pressure [Le ft Arm] Blood Pressure [Ri ght Upper Arm] Pulse Oximetry 99 97 [facility] 19:00 10/30/24 19:01 10/30/24 20:56 Temperature 98.6 F Pulse Rate 86 88 Pulse Rate [Left R adial] Pulse Rate [Pulse Oximeter] 92 Respiratory Rate 13 9 L 12 Blood Pressure 120/75 Blood Pressure [Le ft Arm] 112/75 Blood Pressure [Ri ght Upper Arm] Pulse Oximetry 100 98 97 [facility] 10/30/24 20:56 10/30/24 22:32 10/30/24 23:00 Temperature Pulse Rate 95 Pulse Rate [Left R adial] Pulse Rate [Pulse Oximeter] 93 Respiratory Rate 14 14 Blood Pressure Blood Pressure [Le ft Arm] Blood Pressure [Ri ght Upper Arm] Pulse Oximetry 96 [facility] 10/30/24 23:00 10/31/24 03:00 10/31/24 07:25 Temperature 98.7 F 97.9 F Pulse Rate 85 Pulse Rate [Left R adial] Pulse Rate [Pulse Oximeter] 93 81 Respiratory Rate 14 14 Blood Pressure Blood Pressure [Le ft Arm] 116/68 112/75 Blood Pressure [Ri ght Upper Arm] Pulse Oximetry 96 97 [facility] Room Air 10/31/24 08:00 10/31/24 08:55 10/31/24 11:00 Temperature 98.3 F 98.1 F Pulse Rate Pulse Rate [Left R adial] 90 84 Pulse Rate [Pulse Oximeter] 90 Respiratory Rate 16 16 Blood Pressure Blood Pressure [Le ft Arm] 107/72 114/71 Blood Pressure [Ri ght Upper Arm] Pulse Oximetry 97 99 Oxygen Delivery Me thod Room Air Room Air DS: Data Data Completed and Pending Labs on day of discharge: Labs from last 24 hours 10/31/24 10/31/24 10/31/24 09:47 07:45 06:20 WBC 12.46 H RBC 3.12 L Hgb 9.9 L Hct 30.3 L MCV 97 MCH 32 MCHC 33 RDW Coeff of Minor 16.3 H Plt Count 329 Neut % (Auto) 50.3 Lymph % (Auto) 28.3 [place] % (Auto) 12.8 H Eos % (Auto) 0.1 Baso % (Auto) 0.3 Neut # (Auto) 6.30 Lymph # (Auto) 3.50 H [place] # (Auto) 1.60 H Eos # (Auto) 0.00 Baso # (Auto) 0.00 Abs Immat Gran (auto) 1.00 H Imm/Tot Granulo (auto) 8.2 Diff Slide Review Acceptable Review Sodium 139 Potassium 4.0 Chloride 104 Carbon Dioxide 28 Anion Gap 7 BUN 15 Creatinine 0.6 Estimated Creat Clear 37.85 Estimated GFR 93 Glucose 91 Calcium 9.4 Magnesium Troponin I 0.07 H* 0.08 H* C-Reactive Protein 0.8 NT-Pro-B Natriuret Pep SARS-CoV-2 (PCR) Influenza Type A (PCR) Influenza Type B (PCR) RSV (PCR) Lab Acknowledgement Test Added POC Troponin I 10/30/24 10/30/24 10/30/24 18:44 18:17 16:20 WBC RBC Hgb Hct MCV MCH MCHC RDW Coeff of Minor Plt Count Neut % (Auto) Lymph % (Auto) [place] % (Auto) Eos % (Auto) Baso % (Auto) Neut # (Auto) Lymph # (Auto) [place] # (Auto) Eos # (Auto) Baso # (Auto) Abs Immat Gran (auto) Imm/Tot Granulo (auto) Diff Slide Review Sodium Potassium Chloride Carbon Dioxide Anion Gap BUN Creatinine Estimated Creat Clear Estimated GFR Glucose Calcium Magnesium 2.0 Troponin I C-Reactive Protein NT-Pro-B Natriuret Pep 250 SARS-CoV-2 (PCR) Negative SARS-CoV-2 Influenza Type A (PCR) Negative PCR FLU A Influenza Type B (PCR) Negative PCR FLU B RSV (PCR) Negative PCR RSV Lab Acknowledgement POC Troponin I 0.00 L 10/30/24 15:56 WBC RBC Hgb Hct MCV MCH MCHC RDW Coeff of Minor Plt Count Neut % (Auto) Lymph % (Auto) [place] % (Auto) Eos % (Auto) Baso % (Auto) Neut # (Auto) Lymph # (Auto) [place] # (Auto) Eos # (Auto) Baso # (Auto) Abs Immat Gran (auto) Imm/Tot Granulo (auto) Diff Slide Review Sodium Potassium Chloride Carbon Dioxide Anion Gap BUN Creatinine Estimated Creat Clear Estimated GFR Glucose Calcium Magnesium Troponin I C-Reactive Protein NT-Pro-B Natriuret Pep SARS-CoV-2 (PCR) Influenza Type A (PCR) Influenza Type B (PCR) RSV (PCR) Lab Acknowledgement POC Troponin I 0.01 Imaging CTA chest: Attestation: I have reviewed the pertinent imaging results. Radiologist's impression: Lines/devices: Right-sided Port-A-Cath with tip terminating in the lower SVC. Lower neck: The visualized thyroid is unremarkable. Cardiovascular: Contrast opacification of the pulmonary arterial tree is adequate. Heart size is normal. Thoracic aorta and pulmonary artery are normal in caliber. No significant atherosclerotic calcifications of the aortic arch. Coronary arterial calcifications. No pulmonary embolus. Mediastinum and lymph nodes: Unremarkable. No pathologic mediastinal or hilar lymphadenopathy by size criteria. Lungs: No focal consolidation. Dependent atelectasis. Linear bandlike opacification of the lung bases bilaterally, likely subsegmental atelectasis and/or scarring. There are several scattered pulmonary micronodules measuring up to 3 mm, for example in the left lower lobe (6:93), attention on follow-up imaging. Airways: Trachea remains patent and midline. Mild diffuse peribronchial wall thickening. Pleura: No pleural effusions or pneumothorax. Chest wall: Left axillary biopsy clip. Prominent axillary lymph nodes that do not meet size criteria for lymphadenopathy. Bones: No acute osseous abnormalities. Mild degenerative changes of the thoracic spine. Upper abdomen: Lobulated simple appearing cystic lesion within the left hepatic lobe, probably hepatic cysts, poorly characterized on this nondedicated examination. No acute findings in the visualized upper abdomen. No reflux of contrast material into the IVC. IMPRESSION: 1. No pulmonary embolus. No CT evidence of right heart strain. 2. No CT evidence of intrathoracic malignancy or metastatic disease. No pathologic lymphadenopathy. 3. No acute intrathoracic findings. Discharge Plan Discharge Disposition: Home, Self-Care Date of Admission: 10/30/24 19:48 Attending Provider on Discharge: Isa Cuellar Primary Care Provider: Ashlie Fregoso Condition: Improved Anticipated Discharge Date/Time: 10/31/24 13:00 Discharge Medications: Continued coenzyme Q10 [Co Q-10] 10 mg capsule 10 mg PO QDAY CholestOff Complete 300-100 mg capsule 2 cap PO DAILY Patient Comments: cholestoff prochlorperazine maleate [Compazine] 5 mg tablet 5 mg PO Q8H PRN (Reason: nausea and vomiting) Qty: 60 1RF aspirin 81 mg tablet,delayed release (DR/EC) 81 mg PO DAILY ascorbic acid (vitamin C) 500 mg tablet 750 mg PO DAILY multivitamin Tablet 1 tab PO QAM Fish Oil 100-160-1,000 mg capsule 2 cap PO DAILY amlodipine 2.5 mg tablet 2.5 mg PO QDAY Qty: 90 3RF albuterol sulfate 90 mcg/actuation HFA aerosol inhaler 2 puff inhalation Q6H PRN (Reason: shortness of breath or wheezing) Qty: 8.5 5RF colostrum, bovine 1 ea PO DAILY Gaviscon Extra Strength 160-105 mg tablet,chewable 2 tab PO QID PRN esomeprazole magnesium [Nexium] 20 mg capsule,delayed release(DR/EC) 20 mg PO DAILY calcium carbonate-vitamin D3 [Calcium with Vitamin D] 600 mg-10 mcg (400 unit) tablet 1 tab PO DAILY ondansetron HCl 4 mg tablet 4 mg PO Q8H PRN (Reason: nausea and vomiting) olanzapine 2.5 mg tablet 2.5 mg PO QHS PRN Rx Instructions: Take at bedtime the night of chemotherapy and for 4 days after each chemotherapy dose. dexamethasone 4 mg tablet 8 mg PO QDAY PRN Rx Instructions: take 2 tablets in the morning with food on days 2, 3, and 4 of each cycle. Magic Mouthwash (Lidocaine/Benadryl/Maalox) 120 mL suspension 5 ml PO QID PRN Rx Instructions: Lidocaine Viscous 2 % mucosal solution 40 mL; Maalox 200 mg-200 mg-20 mg/5 mL oral suspension 40 mL; Benadryl 12.5 mg/5 mL oral elixir 40 mL; Per 120 mLSWISH AND SPIT. MAY COMPOUND IF FIRST PRODUCT IS NOT AVAILABLE. polyethylene glycol 3350 [Miralax] 17 gram powder in packet 17 g PO QDAY Discharge Orders: Discharge Order (Routine); Ordered 10/31/24 Ordered By: Isa Cuellar Patient Education: Dyspnea (GEN), Chemo Induced Nausea and Vomiting (GEN) Additional Instructions: Oncology clinic on Tuesday Outpatient ultrasound for liver mass/cyst Activity Level: No Restrictions Discharge Diet: Regular Follow Up Appointments: Ashlie Fregoso MD [Primary Care Provider] - Forms: [facility] Info Inst[facility]
[2024-10-31] MEDS: SODIUM CHLORIDE 0.9 % (FLUSH) 10 ML SYRINGE 5 ML IVF (13:40)
--- NOTE | 2024-10-31 14:00 | PC.NURSE ---
Shift Summary: Patient pleasant and cooperative. Up independently. Vitals stable and WNL. Denies SOB, pain or nausea. Had EKG and echo done today. Port heparinized prior to being discontinued. Discussed discharge instructions, informed to keep follow up appointment with oncology. Patient discharged @ 1355, ambulated to private car, to bring home.
== END 2024-10-31 13:55 | disposition home or self-care (01) ==
LOC: ED 18:58 → MEDSURG 19:49
PROVIDERS: Internal Medicine; Physician Assistant; Admitting Provider Family Medicine; Emergency Provider Family Medicine; PCP Internal Medicine; Visit Provider Family Medicine
DX: R06.09 Other forms of dyspnea (principal); R07.89 Other chest pain; Z51.11 Encounter for antineoplastic chemotherapy; C50.919 Malignant neoplasm of unspecified site of unspecified female breast; R16.0 Hepatomegaly, not elsewhere classified; R11.0 Nausea; R12 Heartburn; R79.89 Other specified abnormal findings of blood chemistry; R00.0 Tachycardia, unspecified; E78.5 Hyperlipidemia, unspecified; I10 Essential (primary) hypertension; Z79.82 Long term (current) use of aspirin
CPT/HCPCS: 36415; 36591; 71275; 80048; 80053; 83735; 83880; 84484; 85025; 86140; 87631; 93005; 93306; 99214; 99285; G0463; A9270; G0378; J1642; Q9967

== ENCOUNTER 2024-11-14 14:57 | Outpatient (CLI) | payer MEDICARE, OTHER, SELFPAY ==
--- NOTE | 2024-11-14 15:15 | CRLHL7_ITS ---
For Patients: As a result of the Century Cures Act, medical imaging exams and procedure reports are released immediately into your electronic medical record. You may view this report before your referring provider. If you have questions, please contact your health care provider. BILATERAL BREAST MRI WITHOUT AND WITH GADOLINIUM CLINICAL HISTORY: Left breast cancer, grade 3 triple negative invasive ductal carcinoma. Date of diagnostic biopsy 06/21/2024 INDICATION FOR BREAST MRI: Undergoing neoadjuvant treatment. Mid treatment. COMPARISON STUDIES: MRI 06/29/2024, mammogram 06/15/2024, ultrasound 06/15/2024, 06/21/2024 CONTRAST: 15 mL Dot[employer] TECHNIQUE: The patient was positioned prone using a breast coil. Multiple imaging sequences were obtained using 1-1.5 mm thick slices with no gap. The image sequences include T2-weighted STIR in the axial plane, T1-weighted nonfat-saturated gradient echo in the axial plane, pre- and post-contrast T1-weighted FLASH 3D with fat suppression in the axial plane, and T1-weighted FLASH high resolution 3D with fat suppression in the sagittal plane. Image post-processing was performed on a [employer] workstation. Complex 3D rendering including maximum intensity projections (MIPS) and volumetric renderings were obtained to optimize visualization of the extent of pathology and relationship to the nipple, skin, and chest wall. This aids in determining feasibility of breast conservation surgery. Subtraction, multiplanar reconstruction, mean curve determination, and angiogenesis mapping were also performed. The study was technically adequate. FINDINGS: Amount of Fibroglandular Tissue: Scattered. Breast Background Enhancement: Mild RIGHT Breast: Negative for suspicious mass or non-mass enhancement LEFT Breast: 0.7 x 0.4 cm solid enhancing mass is detected in area of the known breast cancer. t is oval shaped and smoothly marginated and likely represents a normal lymph node. It is unchanged since the past MR. There has been response to treatment with resolution of the known breast cancer enhancement. Adjacent signal void from marker clip placed at biopsy. The remainder of the left breast is negative. Lymph Nodes: No enlarged or morphologically abnormal lymph nodes. Other Findings: Biopsy marker clip left axilla. IMPRESSIONS AND RECOMMENDATIONS: 1. Response to treatment with no residual enhancement of the known breast cancer. 2. Unchanged Lymph node upper outer left breast measuring 0.7 x 0.4 cm is seen near the tumor bed. 3. The right breast is negative BI-RADS: 6-gzylia-xbyhaz malignancy Dictated by Kendra Scott MD @ 11/15/2024 11:39:07 AM (Electronically Signed)
== END 2024-11-14 14:58 | disposition home or self-care (01) ==
LOC: MRI 14:58
PROVIDERS: PCP Internal Medicine; Visit Provider Internal Medicine Hematology & Oncology
DX: C50.412 Malignant neoplasm of upper-outer quadrant of left female breast (principal); Z17.1 Estrogen receptor negative status [ER-]
CPT/HCPCS: 77049; C8908; C8937; A9575

== ENCOUNTER 2024-12-18 09:50 | Observation (INO) | payer MEDICARE, OTHER, SELFPAY ==
--- OUTSIDE RECORDS SUMMARY | 2024-11-07 13:00 | XMS_ITS | Encounter Summary ---
Author Organization [facility] Address [address] [place] [id number] Care Team Providers Care Speech Language Pathologist Name Role Phone Unavailable Primary Care Provider Unavailabl e Reason for Visit * Outpatient (Routine) - Closed Specialty Diagnoses / Procedures Referred By Harriet cevallos Referred To Contact Cardiovascular Diseases / Cardiovascular Disease Diagnoses Dyspnea On Exertion Malignant Neoplasm Of Overlapping Sites Of Left Female Breast (HCC) Veronica Narvaez MPAS, P.A.-C., P.A. [address] [place] [address] Phone: tel: fax: [facility] Referral ID Status Reason Start Date Expiration Date Visits Re quested Visits Authorized [id number] Closed 11/05/2024 05/07/2026 1 1 Encounter Details Date Type Department Care Team (Latest Contact Info) Description 11/07/2024 1:00 PM CDT Comprehensive Visit Department of Cardiovascular Medicine in [place], [place] [address] [place] [address] Niko Meade M.D. [address] [place] [address] Myocarditis (HCC) (Primary Dx); Dyspnea On Exertion; Malignant Neoplasm Of Overlapping Sites Of Left Female Breast (HCC) Social History Tobacco Use Types Packs/Day Years Used Date Smoking Tobacco: Never Smokeless Tobacco: Never Tobacco Cessation:Counseling Given: No Alcohol Use Standard Drinks/Week Comments Never 0 (1 standard drink = 0.6 oz pur e alcohol) [facility] Utilities Answer Date Recorded In the past 12 months has [employer], oil, or [employer] threatened to shut off services in your home? No 11/06/2024 Humiliation, Afraid, Rape, and Kick questionnair e Answer Date Recorded Within the last year, have y ou been afraid of your partner or ex-partner? No 04/03/2022 Within the last year, have y ou been humiliated or emotionally abused in other ways by your partner or ex-partner? No Within the last year, have y ou been kicked, hit, slapped, or otherwise physically hurt by your partner or ex-partner? No 04/03/2022 Within the last year, have y ou been raped or forced to have any kind of sexual activity by your partner or ex-partner? No 04/03/2022 Social Connection and Isolat ion Panel [NHANES] Answer Date Recorded In a typical week, how many times do you talk on the phone with family, friends, or neighbors? More than three times a week 04/03/2022 How often do you get togethe r with friends or relatives? Twice a week 04/03/2022 How often do you attend chur ch or anabaptist services? More than 4 times per year 04/03/2022 Do you belong to any clubs o r organizations such as pentecostal groups, unions, fraternal or athletic groups, or school groups? No 04/03/2022 How often do you attend meet ings of the clubs or organizations you belong to? Never 04/03/2022 Are you , , di vorced, , never , or living with a partner? 04/03/2022 AUDIT-C Answer Date Recorded Q1: How often do you have a drink containing alc ohol? Never 04/03/2022 Average Number of Drinks Not on file 022 Frequency of Binge Drinking Not on file 07/2021 Overall Financial Resource Strain (CARDIA) Answe r Date Recorded How hard is it for you to pa y for the very basics like food, housing, medical care, and heating? Not hard at all 04/03/2022 [facility] of Occupat ional Health - Occupational Stress Questionnaire Answer Date Recorded Do you feel stress - tense, restless, nervous, or anxious, or unable to sleep at night because your mind is troubled all the time - these days? Not at all 04/03/2022 Exercise Vital Sign Answer Date Recorde d On average, how many days pe r week do you engage in moderate to strenuous exercise (like a brisk walk)? 6 days 11/06/2024 On average, how many minutes do you engage in exercise at this level? 30 min 11/06/2024 Hunger Vital Sign Answer Date Recorded Within the past 12 months, y ou worried that your food would run out before you got the money to buy more. Never true 11/07/19 25 Within the past 12 months, t he food you bought just didn't last and you didn't have money to get more. Never true 11/06/2024 PRAPARE - Transportation Answer Date Re corded In the past 12 months, has l ack of transportation kept you from medical appointments or from getting medications? No 12/2024 In the past 12 months, has l ack of transportation kept you from meetings, work, or from getting things needed for daily living? No 11/06/2024 Nutrition Answer Date Recorded On average, how many serving s of fruits and vegetables do you eat per day (serving size is equal to 1 cup or approximately the size of a tennis ball)? 5 or more 11/06/2024 Dental Answer Date Recorded Dental: Regular Dentist Yes 04/03/20 Employment Answer Date Recorded Employment status Retired 11/06/2024 Housing Stability Answer Date Recorded What is your living situation today? I have a [facility] place to live 11/06/2024 Education Answer Date Recorded What is the highest level of school you have completed or the highest degree you have received? Associate degree: occupational, technical, or vocational program 04/03/2022 Comments Unknown Sex and Gender Information Value Date Recorded Sex Assigned at Female 03/27/2021 3:20 PM CDT Legal Sex Female 12:49 PM CDT Gender Identity Not on file Sexual Orientation Not on file documented as of this encounter Last Filed Vital Signs Vital Sign Reading Time Taken Comments Blood Pressure 125/86 11/07/2024 12:53 PM CDT Pulse 93 11/07/2024 12:53 PM CDT Temperature - - Respiratory Rate - - Oxygen Saturation - - Inhaled Oxygen Concentration - - Weight 66.8 kg (147 lb 4.3 oz) 11/07/2024 12:53 PM CDT Height 158.8 cm (5' 2.52) 11/07/2024 12:53 PM C DT Body Mass Index 26.49 11/07/2024 12:53 PM CDT documented in this encounter Consult Notes * Niko Meade M.D. - 11/07/2024 1:00 PM CDT SUBJECTIVE Referring Provider: [place] Boss, Klaudia-Krista, P.A. HISTORY OF PRESENT ILLNESS Ms. Paloma Sommers is a 74 y.o. female who is referred to [facility] for a cardio-oncology consultation. Oncology history: Left-sided triple negative breast cancer grade 3, T1, N0, M0, stage IIA anatomic end-stage to be prognostic 11/2023 screening mammogram showed a left breast lump 06/2024 mammogram showed a suspicious left breast mass 06/2024 ultrasound core biopsy positive for invasive ductal carcinoma grade 3, ER and MD negative, HER2 1+ 06/2024 clip play 1224 breast MRI defining an enhancing mass in the left upper outer quadrant measuring 2.1 x 1.2 x 1.8 cm, 2 indeterminate lymph nodes in the left axilla 07/2024 left axilla lymph nodes positive for benign lymph node negative for metastatic carcinoma 07/2024 PET scan negative for distant metastasis however concern of left axillary lymph node positivity 07/2024 through 10/2019 for 4 cycles of neoadjuvant pembro + 4 cycles of carboplatin and Taxol 10/15/24 cycle 1 of neoadjuvant doxorubicin, cyclophosphamide, cycle 5 of pembro From October 15 through October 20 she developed chest tightness and dyspnea on exertion, limiting exercise capacity, no symptoms at rest and no orthopnea or lower extremity edema. Increased puffiness of her hands and abdomen over 1 day but then resolved. No additional symptoms Echocardiogram in July 2024 showed an EF of 60 65%, normal LV size, no significant disease otherwise On October 30, 2024 she was admitted overnight to rule out ICA myocarditis. CT chest angiogram was negative for PE or pneumonitis. TTE on 10/31 was unchanged. NT-pro-BNP was 250, troponins were 0.05, 0.08, 0.07 (upper limit of normal 0.04). CRP was 0. With these assessments she was discharged home When she was seen in the clinic on November 04 she stated that she is still getting winded very easily,but no further recurrent chest tightness. She had a maculopapular rash that improved with topical Benadryl. She has hypertension, ascending aorta dilation of 4 cm, and is on amlodipine 2.5 and aspirin 81 mg per day She has hyperlipidemia and she has GERD, on Nexium, and asthma on albuterol PRN Stress echo 03/2023: neg. MEDICATIONS Current Medications[1] SUBSTANCE USE: Social History[2] REVIEW OF SYSTEMS Pertinent abnormalities are included in the History of Present Illness. PAST MEDICAL, SURGICAL, SOCIAL, AND FAMILY HISTORY The following portions of the patient's history were reviewed and updated as appropriate: allergies, current medications, family history, medical history, social history, surgical history and problemlist. OBJECTIVE There were no vitals taken for this visit. PHYSICAL EXAMINATION General: NAD. Well groomed. Psychiatric: Normal mood and affect. Oriented to person, place, and time. Eyes: No periorbital xanthelasma. Clear sclerae. Heart: First heart sound normal. Second heart sound normal. No m/r/g. Vessels: No carotid bruits. Lungs: Clear to auscultation. Good air movement bilaterally. Musculoskeletal: No clubbing or cyanosis of the digits. Extremities: No peripheral edema. Skin: No stasis dermatitis or ulceration of the lower extremities. DIAGNOSTICS I have reviewed the patient's current laboratory, imaging, and other diagnostic studies. Pertinent laboratory and imaging studies are notable for: As Per HPI ASSESSMENT / PLAN # BANDA # Chest tightness # Left breast cancer, on pembro, and currently AC # HTN # HLP # Ascending aorta dilation # GERD The patient presents for further evaluation of dyspnea on exertion. This started 5 days after receiving AC therapy with pembrolizumab. She noticed that she had a increase in her body weight at that time that then subsequently resolved. She also had chest tightness and presented to the outside facility as outlined in the HPI. The chest tightness did not really feel like a heaviness or pressure sensation just maybe an inability of insufficient airflow. This has subsequently resolved. She still feels she gets short winded relatively easily. Walking her in our hallways with a pulse oximeter showsa heart rate of 97 at rest, oxygen saturation 97%, with walking heart rate of 111 beats per minute,and oxygen saturation 96%, even with her starting to become short of breath while walking and talking. She states that overall things have improved but she still notices quite a high resting pulse, usually now around the 90s, whereas her baseline is in the 60s. She wears an [employer] watch and she was able to log in 2 view her cardio fitness data. This shows an interesting abrupt decline in her estimated peak VO2 starting in the 2nd week of September. This is whereearlier than any symptoms she experienced. We did discuss that Taxol can sometimes lead to dyspnea presentations that can be quite profound. We did discuss a recent of the system, mediated 3 autonomic nervous system. We also discussed that Adriamycin, cyclophosphamide, and pembrolizumab, all of them can cause myocarditis. I think overall it is very reasonable to get a cardiac MRI to assess this. Unfortunately, we are not able to do this in the neck of time prior to her planned next round of chemotherapy on Tuesday. We would also encourage discussions in terms of the best next step of cancer therapy. Think it is debata ble whether she would have a flare of her current symptoms with AC and pembro, whether she should be on a different regimen. Her symptomatic presentation is is pointing clearly in 1 direction but herApple watch is pointing in another. We will communicate with her oncology provider, for them to maker shared decision as how to proceed. We also discussed that at this point we have ruled out major life-threatening complications. We did discuss vaso reactivity testing, we did discuss autonomic function testing. No change in her regimen for now. All question and concerns were addressed for the time being. [1] No current outpatient medications on file. [2] Social History Tobacco Use Smoking status: Never Smokeless tobacco: Never Substance Use Topics Alcohol use: Never Drug use: Never documented in this encounter Plan of Treatment Not on file documented as of this encounter Visit Diagnoses Diagnosis Myocarditis (HCC)- Primary Dyspnea On Exertion Malignant Neoplasm Of Overlapping Sites Of Left Female Breast (HCC) documented in this encounter
[2024-12-18] VITALS (23 sets, daily range): BP systolic 111–132; BP diastolic 68–80; PULSE 74–100; RESP 10–22; TEMP 36–36.9; O2SAT 95–100; BMI 27.1
--- OUTSIDE RECORDS SUMMARY | 2024-12-18 09:53 | XMS_ITS | Encounter Summary ---
Author Organization [facility] Address [address] [place] [address] Care Team Providers Care Coal Cager Name Role Phone Unavailable Primary Care Provider Unavailabl e Encounter Details Date Type Department Care Team (Late st Contact Info) Description 11/08/2024 Orders Only Department of Oncology in [place], [place] [address] [place] [id number] Veronica Narvaez MPAS, P.A.-C., P.A. [address] [place] [phone] Social History Tobacco Use Types Packs/Day Years Used Date Smoking Tobacco: Never Smokeless Tobacco: Never Alcohol Use Standard Drinks/Week Comments Never 0 (1 standard drink = 0.6 oz pur e alcohol) [facility] Utilities Answer Date Recorded In the past 12 months has [facility] [employer], gas, oil, or [employer] threatened to shut off services in your [...] often do you attend chur ch or restorationism services? More than 4 times per year 04/03/2022 Do you belong to any clubs o r organizations such as confucianism groups, unions, fraternal or athletic groups, or [...] and heating? Not hard at all 04/03/2022 [facility] Occupat ional Health - Occupational Stress [...] your living situation today? I have a [facility] place to live 11/06/2024 Education Answer Date [...] on file documented as of this encounter Plan of Treatment Not on file documented as of this encounter Visit Diagnoses Not on filedocumented in this encounter
--- OUTSIDE RECORDS SUMMARY | 2024-12-18 09:53 | XMS_ITS | Clinical Summary ---
Author Organization [employer] [facility] Address [address] [place] [address] Care Team Providers Care Agriculture Engineer Name Role Phone Ashlie Fregoso MD Primary Care Provider [phone]- [phone] Encounters Date Type Department Care Team Description 11/17/2024 12:47 PM CDT - 11/17/2024 11:59 PM CDT Hospital Encounter [facility] [address] [place] [address] Asaf Meade MD BANDA (dyspnea on exertion); Myocarditis (HC); Breast CA (HC) 11/17/2024 Travel 10/31/2024 12:00 PM CDT Ancillary Procedure [facility] & [address] [address] from Last 3 Months Social History Tobacco [...] age 18+ 1966 Hepatitis C screening for ag e 18-79 1966 Pneumococcal series for age 50+ (1 of 2 - PCV) 1967 Zoster (shingles) series for age 50+ (1 of 2) 1967 Tetanus booster 1968 DEXA/DXA scan for age 65+ 2013 Medicare Wellness for age 65+ 2013 COVID-19 vaccine series (3 - Moderna risk series) 02/22/2022 01/25/2022, 05/08/2021 RSV vaccine for adults or (1 - 1-dose 75+ series) 2023 Influenza Vaccine (Season Ended) 2025 Hepatitis B series for 19+ Aged Out N o longer eligible based on patient's age to complete this topic Procedures Procedure Name Priority Date/Time Associated Diagnosis Comments MR CARDIAC WWO Routine 11/17/2024 2:29 PM CDT BANDA (dyspnea on exertion) Myocarditis (HC) Breast CA (HC) ECHO TTE COMPLETE WO CONTRAST Routine 10/31/2024 12:10 PM CDT Exertional chest pain Dyspnea Chemotherapy follow-up examination from Last 3 Months Results * MR CARDIAC WWO (11/17/2024 2:29 PM CDT) Anatomical Region Laterality Modality HEART, THORAX Magnetic Resonan ce 11/17/2024 1:39 PM CDT Narrative 11/19/2024 7:53 AM CDT [facility] CMR Report Name: SHONNA LEIVA : Scan Date: Accession Number: [id number] Status: Final Electronically signed by Attila Muro 07:53:47 VITALS ===== HEIGHT: 62 in (157 cm) WEIGHT: 147 lbs (67 kgs) BSA: 1.68 m^2 BASELINE HR: 70 BPM HEART RHYTHM: Normal Sinus Rhythm FINAL IMPRESSION ===== 1. Small region of mid-wall fibrosis in the basal anterolateral wall without evidence of myocardial edema. 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 2. Normal left ventricular size, wall thickness, systolic function, and longitudinal strain. Calculated LVEF is 63%. 3. Normal right ventricular size and systolic function. Calculated RVEF is 56%. 4. Large cyst in the left lobe of the liver, measuring 37 mm in maximum dimension. 5. No myocardial infarction. Nonspecific faint-appearing fibrosis at the right ventricular insertion into the mid inferoseptum. SUMMARY ===== LEFT VENTRICLE: Quantitative LVEF 63 %. LV wall thickness is normal. LV cavity size is normal. LV systolic function is normal. VIABILITY: LV scar size is 2 %. RIGHT VENTRICLE: Quantitative RVEF 56 %. RV wall thickness is normal. RV cavity size is normal. RV systolic function is normal. LV/RV SEPTUM: The LV/RV septum is normal. LEFT ATRIUM: LA cavity size is normal. PERICARDIUM: There is no pericardial effusion. AORTIC VALVE: Aortic valve leaflets are normal. There is no aortic stenosis. MITRAL VALVE: Mitral valve leaflets are normal. There is no mitral stenosis. No disjunction. TRICUSPID VALVE: Tricuspid valve leaflets are normal. There is no tricuspid stenosis. PULMONIC VALVE: Pulmonic valve leaflets are normal. There is no pulmonic stenosis. AORTIC ROOT: The aortic root is normal. OTHER FINDINGS: Normal global longitudinal strain (17% 2 chamber, 25% 4 chamber) Thoracic aorta Left sided arch Ascending 37 x 36 mm Descending 23 x 23 mm Liver Large cyst 37 mm in maximum dimension CORE EXAM ===== MEASUREMENTS ----- --- VOLUMETRIC ANALYSIS . . LV Reference RV Reference +------+ +------+ +------+ + EDV ml 124 (77-158) 129 (69-153) ml/m^2 74 (50-84) 77 (45-82) ESV ml 46 (18-55) 57 (6-58) ml/m^2 27 (12-30) 34 (6-32) CO L/min 5.46 5.04 L/min/m^2 3.26 3.01 MASS g 70 (74-146) g/m^2 42 (49-78) SV ml 78 (54-109) 72 (53-105) ml/m^2 47 (34-59) 43 (33-57) EF % 63 (60-78) 56 (59-83) '------+ +------+ +------+ ' LV DIMENSIONS WALL THICKNESS - ANTEROSEPTAL: 0.9 cm WALL THICKNESS - INFEROLATERAL: 0.6 cm LA DIMENSIONS (LV SYSTOLE) VOLUME: 66 ml VOLUME NORMALIZED: 39.4 ml/m^2 RA DIMENSIONS (RV SYSTOLE) VOLUME: 90 ml VOLUME NORMALIZED: 53.7 ml/m^2 EXTRACELLULAR VOLUME MEASUREMENT PRE-CONTRAST T1 MYOCARDIUM: 998 msec ECV: 25 % 17 SEGMENT ----- --- . ----- ------. Segments Wall Motion Hyperenhancement Stress Perfusion Interpretation + + + + +----- ----- ------+ Base Anterior Normal/Hyper None Base Anteroseptal Normal/Hyper None Base Inferoseptal Normal/Hyper None Base Inferior Normal/Hyper None Base Inferolateral Normal/Hyper 1-25% Base Anterolateral Normal/Hyper None Mid Anterior Normal/Hyper None Mid Anteroseptal Normal/Hyper None Mid Inferoseptal Normal/Hyper 1-25% Mid Inferior Normal/Hyper None Mid Inferolateral Normal/Hyper None Mid Anterolateral Normal/Hyper None Apical Anterior Normal/Hyper None Apical Septal Normal/Hyper None Apical Inferior Normal/Hyper None Apical Lateral Normal/Hyper None [place] Normal/Hyper None + + + + +----- ----- ------+ RV Segments Wall Motion Hyperenhancement Interpretation + + + + +----- ----- ------+ RV Basal Anterior RV Basal Inferior RV Mid RV Apical ' + + + +----- ----- ------' FINDINGS LV SCAR SIZE (17 SEGMENT): 2 % SCAN INFO ===== GENERAL ----- --- SCANNER METAL BOX MAKER: SIEMENS MODEL: Aera CONTRAST AGENT TYPE: Gadavist GD CONCENTRATION: 1.0 M SETUP REASON(S) FOR SCAN: Myocarditis (known/suspect) REFERRING PHYSICIAN: ASAF MEADE ATTENDING PHYSICIAN: ASAF SULLIVAN ===== Patient Account [id number] ICD10 Codes R06.09, I51.4, C50.919 Report generated by [employer], a product of [employer] Procedure Note Attila Muro MD - 11/19/2024 [facility] CMR Report Name: SHONNA LEIVA : Scan Date: Accession Number: [id number] Status: Final Electronically signed by Attila Muro 07:53:47 VITALS ===== HEIGHT: 62 in (157 cm) WEIGHT: 147 lbs (67 kgs) BSA: 1.68 m^2 BASELINE HR: 70 BPM HEART RHYTHM: Normal Sinus Rhythm FINAL IMPRESSION ===== 1. Small region of mid-wall fibrosis in the basal anterolateral wallwithout evidence of myocardial edema. 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 2. Normal left ventricular size, wall thickness, systolic function, andlongitudinal strain. Calculated LVEF is 63%. 3. Normal right ventricular size and systolic function. Calculated RVEF is56%. 4. Large cyst in the left lobe of the liver, measuring 37 mm in maximumdimension. 5. No myocardial infarction. Nonspecific faint-appearing fibrosis at theright ventricular insertion into the mid inferoseptum. SUMMARY ===== LEFT VENTRICLE: Quantitative LVEF 63 %. LV wall thickness is normal. LVcavity size is normal. LV systolic function is normal. VIABILITY: LV scar size is 2 %. RIGHT VENTRICLE: Quantitative RVEF 56 %. RV wall thickness is normal. RVcavity size is normal. RV systolic function is normal. LV/RV SEPTUM: The LV/RV septum is normal. LEFT ATRIUM: LA cavity size is normal. PERICARDIUM: There is no pericardial effusion. AORTIC VALVE: Aortic valve leaflets are normal. There is no aorticstenosis. MITRAL VALVE: Mitral valve leaflets are normal. There is no mitralstenosis. No disjunction. TRICUSPID VALVE: Tricuspid valve leaflets are normal. There is notricuspid stenosis. PULMONIC VALVE: Pulmonic valve leaflets are normal. There is no pulmonicstenosis. AORTIC ROOT: The aortic root is normal. OTHER FINDINGS: Normal global longitudinal strain (17% 2 chamber, 25% 4chamber) Thoracic aorta Left sided arch Ascending 37 x 36 mm Descending 23 x 23 mm Liver Large cyst 37 mm in maximum dimension CORE EXAM ===== MEASUREMENTS ----- --- VOLUMETRIC ANALYSIS . . LV Reference RV Reference +------+ +------+ +------+ + EDV ml 124 (77-158) 129 (69-153) ml/m^2 74 (50-84) 77 (45-82) ESV ml 46 (18-55) 57 (6-58) ml/m^2 27 (12-30) 34 (6-32) CO L/min 5.46 5.04 L/min/m^2 3.26 3.01 MASS g 70 (74-146) g/m^2 42 (49-78) SV ml 78 (54-109) 72 (53-105) ml/m^2 47 (34-59) 43 (33-57) EF % 63 (47-12) 56 (58-71) '------+ +------+ +------+ ' LV DIMENSIONS WALL THICKNESS - ANTEROSEPTAL: 0.9 cm WALL THICKNESS - INFEROLATERAL: 0.6 cm LA DIMENSIONS (LV SYSTOLE) VOLUME: 66 ml VOLUME NORMALIZED: 39.4 ml/m^2 RA DIMENSIONS (RV SYSTOLE) VOLUME: 90 ml VOLUME NORMALIZED: 53.7 ml/m^2 EXTRACELLULAR VOLUME MEASUREMENT PRE-CONTRAST T1 MYOCARDIUM: 998 msec ECV: 25 % 17 SEGMENT ----- --- . ----- ------. Segments Wall Motion Hyperenhancement Stress Perfusion Interpretation + + + + +----- ----- ------+ Base Anterior Normal/Hyper None Base Anteroseptal Normal/Hyper None Base Inferoseptal Normal/Hyper None Base Inferior Normal/Hyper None Base Inferolateral Normal/Hyper 1-25% Base Anterolateral Normal/Hyper None Mid Anterior Normal/Hyper None Mid Anteroseptal Normal/Hyper None Mid Inferoseptal Normal/Hyper 1-25% Mid Inferior Normal/Hyper None Mid Inferolateral Normal/Hyper None Mid Anterolateral Normal/Hyper None Apical Anterior Normal/Hyper None Apical Septal Normal/Hyper None Apical Inferior Normal/Hyper None Apical Lateral Normal/Hyper None [place] Normal/Hyper None + + + + +----- ----- ------+ RV Segments Wall Motion Hyperenhancement Interpretation + + + + +----- ----- ------+ RV Basal Anterior RV Basal Inferior RV Mid RV Apical ' + + + +----- ----- ------' FINDINGS LV SCAR SIZE (17 SEGMENT): 2 % SCAN INFO ===== GENERAL ----- --- SCANNER METAL BOX MAKER: SIEMENS MODEL: Aera CONTRAST AGENT TYPE: Gadavist GD CONCENTRATION: 1.0 M SETUP REASON(S) FOR SCAN: Myocarditis (known/suspect) REFERRING PHYSICIAN: ASAF MEADE ATTENDING PHYSICIAN: ASAF SULLIVAN ===== Patient Account [id number] ICD10 Codes R06.09, I51.4, C50.919 Report generated by [employer], a product of [employer] Asaf Meade MD MR Final Result * ECHO TTE COMPLETE WO CONTRAST (10/31/2024 12:10 PM CDT) AORTIC VALVE MEAN PG 4 mmHg EJECTION FRACTION 71 % PEAK TR VELOCITY 2.4 m/s LVEDD 3.6 cm Anatomical Region Laterality Modality Ultrasound 10/31/2024 11:3 6 AM CDT Narrative 10/31/2024 12:51 PM CDT ECHOCARDIOGRAM SHONNA LEIVA : 1950 74 years Study Date: 10/31/2024 11:36:17 AM Gender: F BP: 107/72 mmHg Height: 157.00 cm BSA: 1.66 m Weight: 65.00 kg Tech: [facility] Referring MD: LILLY BURGER Site: [facility] Reading Location: Mobile- Patient Location: Inpatient. Procedure: 2D, Color Doppler and Spectral Doppler. Indication for study: Exertional chest pain; Dyspnea; Chemotherapy follow-up examination Cardiac Rhythm: Regular.Study quality: Fair. Imaging limitations: This study was subject to imaging limitations due to a prominent lung artifact. Final Impressions: 1. Normal left ventricular size, normal wall thickness, normal global systolic function, calculated EF of 71 %. 2. Right ventricular cavity size is normal, global systolic RV function is normal. 3. Normal left atrium size. 4. The aortic valve is normal, no stenosis and no regurgitation. 5. The mitral valve is normal, trace mitral regurgitation. 6. Tricuspid valve is normal, trace tricuspid regurgitation. 7. Dilated ascending aorta, diameter of 4.1 cm (upper limit of normal for age, sex, and BSA is 3.9 cm), Height Index 2.61. 8. No pericardial effusion. 9. There is echolucent mass seen in the liver. This is consistent with cyst. Suggest dedicated liver US and clinical correlation for further evaluation. Chamber Sizes and Function Normal left ventricular size, normal wall thickness, normal global systolic function, calculated EF of 71 %. No resting regional wall motion abnormality visualized. Left atrial size is normal. Right ventricular cavity size is normal, global systolic RV function is normal. The right atrium is normal. Right atrial volume index is 21 ml/m . Right atrial area is 13 cm . The pulmonary artery is not well visualized. The sinus of Valsalva is normal sized. The ascending aorta is dilated. Valves, RV Pressures and Diastolic Function The aortic valve is normal in structure, no stenosis and no regurgitation. The mitral valve is normal in structure, trace mitral regurgitation. Normal diastolic function. The tricuspid valve is normal in structure, trace tricuspid regurgitation. The tricuspid regurgitant velocity is 2.4 m/s, the estimated right ventricular systolic pressure is 22 mmHg plus right atrial pressure. The pulmonic valve is not well visualized. No pulmonary regurgitation. Masses, Effusion, Shunts There is no pericardial effusion. The inferior vena cava is normal sized, respiratory size variation greater than 50%. Interatrial septum is aneurysmal. MEASUREMENTS AND CALCULATIONS 2-D Measurements and LV Function: LVID (d) 3.6 cm Planimetered EF 71 % LVID (s) 2.2 cm LV FS% (2D) 40 % IVS (d) 0.9 cm LVOT diameter 2.1 cm LVPW (d) 1.0 cm HR 78 bpm Ao Sinus 3.6 cm LA Vol index 15 ml/m2 Ao Sinus ULN 3.7 cm RA Vol index 21 ml/m2 Asc Ao 4.1 cm RA area 13 cm Asc Ao ULN 3.9 cm RV Basal Diam 3.0 cm LA 2.6 cm RV Mid Diam 1.8 cm Diastology: Mitral Tissue Doppler E Peak 0.5 m/s e', Septum 0.06 m/s A Peak 0.8 m/s e', Lateral 0.10 m/s E/A 0.7 E/e' Average 6.66 DT 247 msec Aortic Valve: Vmax 1.3 m/s MILLIE (V) 2.55 cm VTI 0.26 m MILLIE (I) 2.64 cm LVOT V max 0.9 m/s Max PG 7 mmHg LVOT VTI 0.19 m Mean PG 4 mmHg SV 69 ml Dim Index 0.73 SV index 42 ml/m CO 5.4 l/min CI 3.2 l/min/m Mitral Valve: MVA 3.1 cm MV P 1/2 72 msec Tricuspid Valve and estimated PA pressures: TR Vmax 2.4 m/s TAPSE 2.6 cm TR maxG 22 mmHg . This study was interpreted by an [facility] accredited facility. CC: HIM (med records) [facility], Med/Surg - IP [facility]. Final Procedure Note Dayami Benson, [facility] - 10/31/2024 ECHOCARDIOGRAM SHONNA LEIVA : 1950 74 years Study Date: 10/31/2024 11:36:17 AM Gender: F BP: 107/72 mmHg Height: 157.00 cm BSA: 1.66 m Weight: 65.00 kg Tech: MUNDO Referring MD: LILLY BURGER Site: [facility] Reading Location: [place]- Patient Location: Inpatient. Procedure: 2D, Color Doppler and Spectral Doppler. Indication for study: Exertional chest pain; Dyspnea; Chemotherapyfollow-up examination Cardiac Rhythm: Regular.Study quality: Fair. Imaging limitations: This study was subject to imaging limitations due toa prominent lung artifact. Final Impressions: 1. Normal left ventricular size, normal wall thickness, normal globalsystolic function, calculated EF of 71 %. 2. Right ventricular cavity size is normal, global systolic RV functionis normal. 3. Normal left atrium size. 4. The aortic valve is normal, no stenosis and no regurgitation. 5. The mitral valve is normal, trace mitral regurgitation. 6. Tricuspid valve is normal, trace tricuspid regurgitation. 7. Dilated ascending aorta, diameter of 4.1 cm (upper limit of normal forage, sex, and BSA is 3.9 cm), Height Index 2.61. 8. No pericardial effusion. 9. There is echolucent mass seen in the liver. This is consistent withcyst. Suggest dedicated liver US and clinical correlation for furtherevaluation. Chamber Sizes and Function Normal left ventricular size, normal wall thickness, normal globalsystolic function, calculated EF of 71 %. No resting regional wall motionabnormality visualized. Left atrial size is normal. Right ventricularcavity size is normal, global systolic RV function is normal. The rightatrium is normal. Right atrial volume index is 21 ml/m . Right atrialarea is 13 cm . The pulmonary artery is not well visualized. The sinus ofValsalva is normal sized. The ascending aorta is dilated. Valves, RV Pressures and Diastolic Function The aortic valve is normal in structure, no stenosis and no regurgitation.The mitral valve is normal in structure, trace mitral regurgitation.Normal diastolic function. The tricuspid valve is normal in structure,trace tricuspid regurgitation. The tricuspid regurgitant velocity is 2.4m/s, the estimated right ventricular systolic pressure is 22 mmHg plusright atrial pressure. The pulmonic valve is not well visualized. Nopulmonary regurgitation. Masses, Effusion, Shunts There is no pericardial effusion. The inferior vena cava is normal sized,respiratory size variation greater than 50%. Interatrial septum isaneurysmal. MEASUREMENTS AND CALCULATIONS 2-D Measurements and LV Function: LVID (d) 3.6 cm Planimetered EF 71 % LVID (s) 2.2 cm LV FS% (2D) 40 % IVS (d) 0.9 cm LVOT diameter 2.1 cm LVPW (d) 1.0 cm HR 78 bpm Ao Sinus 3.6 cm LA Vol index 15 ml/m2 Ao Sinus ULN 3.7 cm RA Vol index 21 ml/m2 Asc Ao 4.1 cm RA area 13 cm Asc Ao ULN 3.9 cm RV Basal Diam 3.0 cm LA 2.6 cm RV Mid Diam 1.8 cm Diastology: Mitral Tissue Doppler E Peak 0.5 m/s e', Septum 0.06 m/s A Peak 0.8 m/s e', Lateral 0.10 m/s E/A 0.7 E/e' Average 6.66 DT 247 msec Aortic Valve: Vmax 1.3 m/s MILLIE (V) 2.55 cm VTI 0.26 m MILLIE (I) 2.64 cm LVOT V max 0.9 m/s Max PG 7 mmHg LVOT VTI 0.19 m Mean PG 4 mmHg SV 69 ml Dim Index 0.73 SV index 42 ml/m CO 5.4 l/min CI 3.2 l/min/m Mitral Valve: MVA 3.1 cm MV P 1/2 72 msec Tricuspid Valve and estimated PA pressures: TR Vmax 2.4 m/s TAPSE 2.6 cm TR maxG 22 mmHg . This study was interpreted by an [facility] accredited facility. CC: HIM (med records) [facility], Med/Surg - IP [facility]. Final us Lilly Burger MD ECHO ORD Final Result from Last 3 Months Insurance MEDICARE PB ONLY [employer] MEDICARE PART A HB ONLY MEDICARE PART B HB ONLY Care Teams Agriculture Engineer Relationship Specialty Start Date End Date Ashlie Fregoso MD [address] [place] [id number] PCP - General Internal Medicine 03/29/23
--- OUTSIDE RECORDS SUMMARY | 2024-12-18 09:53 | XMS_ITS | Clinical Summary ---
Author Organization [facility] Address [address] , [address] [place] [address] Phone Care Team Providers Care General Service Officer Name Role Phone Norma Corrales Unavailable Unavailable Conditions or Problems Problem Name Problem Code Onset Date Status Entry Date Provider Comment Standard Description Annotate Hx of lacunar cerebrovascu lar accident 64892251410 101 (SNOMED CT) 07/11 Active 07/11 Sherry Radha History of lacunar cerebrovascular accident TIA 990996639 (SNOMED CT) 07/11 Active 07/11 Joshua Hinojosa MD Transient cerebral ischemia Lacunar stroke 827234732 (SNOMED CT) 07/11 Inactive 07/11 Joshua Hinojosa MD Lacunar infarction Medications Medication Instructions Start Date Stop Date Generic Name NDC Provider VALSARTAN 40 MG TABS valsartan [id number] Nichol VASQUEZ-C ASPIRIN LOW DOSE 81 MG TBEC Take 1 tablet by mouth once a day aspirin 17926967786 Nichol VASQUEZ-C CVS HAIR/SKIN/NAIL S TABS multivitamin with minerals 33320321057 Nichol VASQUEZ-C OYSTER SHELL CALCIUM/D 500-10 MG-MCG TABS calcium carbonate-vitam in d3 74348852656 Nichol VASQUEZ-C Collagen Skin Renewal 30 mg-833.3 mg tablet ascorbic acid-collagen 93766914665 Nichol VASQUEZ-C antronex Standard Process brand supplement antronex Nichol VASQUEZ-C congaplex Standard Process brand supplement congaplex Nichol VASQUEZ-C livaplex Standard Process brand supplement livaplex Nichol Sheelanazia Bowers PA-C black currant seed oil Standard Process brand supplement black currant seed oil Nichol Pichardotasneem ERWIN zymex II Standard Process brand supplement zymex II Nichol Pichardotasneem ERWIN AMLODIPINE BESYLATE 2.5 MG TABS amlodipine [id number] Joshua Hinojosa MD VALSARTAN 80 MG TABS valsartan 54726649800 Joshua Hinojosa MD Medications Administered No information available. Allergies, Adverse Reactions, Alerts Allergy Name Reaction Description Start Date Severity Statu s Provider CETIRIZINE Critical Active Joshua Perkins i, MD Results Date Name Value Unit Range Flag Description Office Visit: Office Visit m ail SMOK STATUS never smoker Toba cut tobacco bulker smoking status Office Visit: Office Visit f ax MEDS REVIEW Done Documenta tion of current medications (procedure) Internal Other: Authorizatio n - OBS [email or web address] Yes Authoriza tion: Release of Information - Authorize [facility] - Payment and Healthcare Operations ROIAUTHOTHER Yes Authoriz ation: Release of Information - Authorize Others/Insurance - Payment and Healthcare Operations HIECONSENT Yes Consent To Release information to the Health Information Exchange (HIE) [email or web address] Yes Authorizat ion: Authorization for [facility] to leave messages, voicemail, send text messages, send emails AUTHRELHCARE Yes Authoriz ation: Release/Retrieval of Information to/from Healthcare Facilities, Pharmacy Benefit Payers and Providers AUTHPRIVPRAC Yes Authoriz ation: Notice of privacy practices AUTHBENEFIT Yes Authoriza tion: Assignment of Benefits and Payment Agreement Plan of Care Type Date Detail Appointment 11:30 AM Nichol Bowers PA-C, [address], [address], [place], [address], Pending order Follow up MARIO Pending order Follow up MARIO Pending order Patient Instruct ions Pending order Follow up Pending order Patient Instruct ions Pending order Obtain outside r ecords Pending order Obtain outside r ecords Pending order Follow up MARIO Pending order Other Test Pending order Patient Instruct ions Pending order Obtain outside r ecords Procedures Code Procedure Name Date Entry Date ORDERS Follow up [email or web address] Documentation of current medicatio ns ORDERS Patient Instructions ORDERS Patient Instructions ORDERS Obtain outside records 11/08 ORDERS Obtain outside records 11/08 ORDERS Follow up MARIO ORDERS Obtain outside records 05/11 ORDERS Patient Instructions ORDERS Other Test [facility] [email or web address] Documentation of current medicatio ns Vital Signs Date Name Value Unit Description BP Diastolic 80 mm[Hg] blood pressu re, diastolic BP Systolic 120 mm[Hg] blood pressur e, systolic Heart Rate 70 /min pulse rate Immunizations No information available. Advance Directives No information available.
--- OUTSIDE RECORDS SUMMARY | 2024-12-18 09:54 | XMS_ITS | Clinical Summary ---
Author Organization [employer] Address [address], [place] [address] Care Team Providers Care Verification Engineer Name Role Phone Found, No Pcp MD Primary Care Provider Unavailab le Source Comments You are receiving this document as you are listed as the primary care provider,follow-up provider, or the patient has been referred to you for consultation.This is in compliance with the Medicare and[facility] EHR Incentive Program,which states Providers who transition their patient to another setting of careor provider of care or refers their patient to another provider of care shouldprovide summary care record for each transition of care or referral. [employer] Allergies Active Allergy Reactions Criticality Noted Date [...] 05/08/2021, 09/04/2020, Additional history exists Influenza Vaccine (Season Ended) 2025 04/14/2023, 04/26/2022, 03/23/2021, Additional history exists DTaP/Tdap/Td Vaccine [...] age to complete this topic Insurance MEDICARE [facility] [employer] Care Teams Verification Engineer Relationship Specialty Start Date End Date Found, No Pcp, [address] [place] [address] PCP - General 06/07/23
--- OUTSIDE RECORDS SUMMARY | 2024-12-18 09:54 | XMS_ITS | Encounter Summary ---
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 [address] [place] [address] Phone: tel: fax: [facility] Referral ID Status Reason Start Date Expiration Date Visits Re quested Visits Authorized [id number] Closed 11/05/2024 05/07/2026 1 1 Encounter Details Date Type Department Care Team (Late st Contact Info) Description 11/05/2024 Orders Only Department of Oncology in [place], [place] [address] [place] [phone] Veronica Narvaez MPAS, P.A.-C., P.A. 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 Not hard at all 04/03/2022 [facility] [place] of Occupat ional Health - Occupational Stress [...] your living situation today? 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
--- OUTSIDE RECORDS SUMMARY | 2024-12-18 09:54 | XMS_ITS | Clinical Summary ---
Author Organization [facility] Address [address] [place] [id number] Care Team Providers Care Crane Mechanic Name Role Phone Unavailable Primary Care Provider Unavailabl e Source Comments Patient records contain information from all sites at [facility]. For routine questions regarding patient records, call [phone] during business hours, M-F 8:00 AM - 5:00 PM Central Time. Record requests for emergency care only can be directed to [phone] at any time.[facility] Medications amLODIPine (Norvasc) 2.5 mg tablet Take 2.5 mg by mouth daily. [address] tablet Take 81 mg by mouth daily. Active dexAMETHasone (Decadron) 4 mg tablet Take 4 mg by mouth as needed. 5 Active hydrocortisone (Hytone) 2.5 % cream 1 Application by other route as needed for irritation. 1 Active ivermectin (Soolantra) 1 % cream cream Apply 1 Application topically as needed. 8 Active ketoconazole (Nizoral) 2 % cream 1 Application by other route as needed for irritation. 1 Active OLANZapine (ZyPREXA) 2.5 mg tablet Take 2.5 mg by mouth as needed. 5 Active prochlorperazin e (Compazine) 5 mg tablet Take 5 mg by mouth every 8 (eight) hours as needed for nausea or vomiting. 5 Active Encounters Date Type Department Care Team Description 11/08/2024 Orders Only Department of Oncology in [place], [place] [address] [place] [phone] Veronica Narvaez MPAS, P.A.-C., P.A. 11/07/2024 1:00 PM CDT Comprehensive Visit Department of Cardiovascular Medicine in [place], [place] [address] [place] [address] Niko Meade M.D. 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) from Last 3 Months Family History Medical History Relation Name Comments Prostate cancer Brother Kleppe Kidney cancer Father Kleppe Asthma Maternal Grandfather Stwart Breast cancer Mother Kleppe Melanoma Sister Kirill Colon polyps Son Redder Relation Name Status Comments Brother Kleppe Alive Father Kleppe Alive Maternal Grandfather Stwart Alive Mother Kleppe Alive Sister Kirill Alive Son Redder Alive Social History Tobacco Use Types Packs/Day Years Used Date Smoking Tobacco: Never Smokeless Tobacco: Never Tobacco Cessation:Counseling Given: No Alcohol Use Standard Drinks/Week Comments Never 0 (1 standard drink = 0.6 oz pur e alcohol) [facility] [employer] Answer Date Recorded In the past 12 months [facility] [employer], [employer], oil, or water [employer] threatened to shut off services in your [...] 04/03/2022 How often do you attend chur or latter day services? More than 4 times per year 04/03/2022 Do you belong to any clubs o r organizations such as methodist groups, unions, fraternal or athletic groups, or [...] and heating? Not hard at all 04/03/2022 [facility] Occupat ional Health - [...] your living situation today? [facility] 11/06/2024 Education Answer [...] on file Sexual Orientation Not on file Last Filed Vital Signs Vital Sign Reading [...] Mass Index 26.49 11/07/2024 12:53 PM CDT Plan of Treatment Health Maintenance Due Date Last Done Comments Glucose Test for Med Monitoring 1950 Hepatitis C Screening 1950 RSV vaccine - (32-36 weeks) or 60+ years (1 - 1-dose 75+ series) 2023 COVID-19 Vaccine (2023- season) 2024 01/25/2022, 05/08/2021, 09/04/2020, Additional history exists Depression Screening (Annual PHQ-2) 07/04/2024 DTaP,Tdap,and Td Vaccines (4 - Td or Tdap) 10/21/2032 10/21/2022, 07/12/2013, 07/12/2012 Pneumococcal vaccine (50+ years) Completed 12/13/2018, 04/17/2014, 04/17/2014 Zoster Vaccines Completed 06/05/2019, 07/2018, 02/01/2019, Additional history exists Mammogram Discontinued 06/20/2020, 06/03, 05/24/2019, Additional history exists Colonoscopy Discontinued 11/05/2020 Colorectal Cancer Screening Discontinued Influenza Vaccine Completed 04/02/2024, , 04/26/2022, Additional history exists Fall Risk Screen (Annual) Completed 11/07/2024 CT Colonography Discontinued Cologuard Discontinued FIT Discontinued IPV Vaccines Aged Out No longer eligi ble based on patient's age to complete this topic Procedures Procedure Name Priority Date/Time Associated Diagnosis Comments OUTSIDE CT BODY Routine 10/30/2024 4:25 PM CDT from Last 3 Months Results * CT Angio Chest PE Protocol-Outside CT Body (10/30/2024 4:25 PM CDT) Narrative [facility] - 11/05/2024 8:06 AM CDT This order has been created and auto-finalized to support the import of outside images. If available, original interpretation can be found on the Media Tab in Chart Review, in Document Viewer, as an image in InfinityView or as an Addendum. If a re-interpretation or overread is required please follow defined workflow. us Provider Not In System IMG CT PROCEDURES Final R esult [facility] NA from Last 3 Months Insurance MEDICARE [facility]
--- NOTE | 2024-12-18 11:02 | ED.GENADULT ---
HPI - General Adult General Time Seen by Provider: 11:02 Date Seen: 12/18/24 Chief complaint: Unspecified Complaint, Adult Stated complaint: From [facility] Time Seen by Provider: 12/18/24 11:02 Source: patient, RN notes reviewed, old records reviewed and other (spoke with Darya from [facility]) Mode of arrival: ambulatory Limitations: no limitations History of Present Illness HPI narrative: This 74yo female is sent to us from [facility] for elevated troponin. She has been having neoadjuvant chemotherapy for triple negative breast cancer. She is getting Adriamycin, Keytruda, cyclophosphamide. She was hospitalized overnight on 10/30/2024 with dyspnea on exertion and some chest tightness. She had CT imaging that showed no pulmonary emboli, no right heart strain. Her troponins were elevated at 0.05, 0.08 and 0.07. She had a normal echo, please see chart for details. She ended up seeing oncologic cardiology in [place]. She did get a cardiac MRI on 11/17/2024 with findings of a small region of mid wall fibrosis in the basal anterior lateral wall without evidence of myocardial edema. 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 Normal left ventricular size, wall thickness, systolic function and longitudinal strain. Calculated LVEF is 60 3%. Normal right ventricular size and systolic function, calculated RV EF is 50 6%. Large cyst in the left lobe of the liver measuring 37 mm in maximum dimension. No myocardial infarction. Nonspecific faint appearing fibrosis at the right ventricular insertion into the mid inferioroseptum. She is not having any chest pain. Continues with dyspnea on exertion with walking. She notes that she has felt her heart rate has elevated overnight but did not sleep well. The night prior she slept 10 hours and thinks she just maybe got too much sleep. She really has no specific symptoms why she did not sleep last night. No fevers or chills, no chest pain, no GI symptoms, no calf pain, no lower extremity swelling. Darya from [facility] has been instrumental in assisting with this patient. Related Data Home Medications ?Medication ?Instructions ?Recorded ?Confirmed aspirin 81 mg tablet,delayed 81 mg PO DAILY 07/20/22 12/18/24 release colostrum, bovine 1 ea PO DAILY 07/25/24 12/18/24 aluminum hydrox-magnesium carb 160 2 tab PO QID PRN 10/16/24 12/18/24 mg-105 mg chewable tablet (Gaviscon Extra Strength) dexamethasone 4 mg tablet 8 mg PO QDAY PRN 10/31/24 12/18/24 esomeprazole magnesium 20 mg 20 mg PO DAILY 10/31/24 12/18/24 capsule,delayed release (Nexium) olanzapine 2.5 mg tablet 2.5 mg PO HS PRN 10/31/24 12/18/24 ondansetron HCl 4 mg tablet 4 mg PO Q8H PRN nausea and vomiting 10/31/24 12/18/24 polyethylene glycol 3350 17 gram 17 g PO DAILY PRN 11/05/24 12/18/24 oral powder packet (Miralax) calcium 600 mg (as 2 tab PO DAILY 11/12/24 12/18/24 carbonate)-vitamin D3 10 mcg (400 unit) tablet (Calcium with Vitamin D) amlodipine 2.5 mg tablet 2.5 mg PO DAILY 12/18/24 12/18/24 Previous Rx's ?Medication ?Instructions ?Recorded albuterol sulfate 90 mcg/actuation 2 puff inhalation Q6H PRN 03/13/24 aerosol inhaler shortness of breath or wheezing #8.5 grams prochlorperazine maleate 5 mg 5 mg PO Q8H PRN nausea and 07/16/24 tablet (Compazine) vomiting #60 tabs Allergies Allergy/AdvReac Type Severity Reaction Status Date / Time cetirizine Allergy Unknown Drowsy Verified 12/18/24 11:46 clove Allergy Verified 12/18/24 11:46 milk Allergy Verified 12/18/24 11:46 soy Allergy Verified 12/18/24 11:46 wheat Allergy Verified 12/18/24 11:46 Review of Systems Status of ROS: Reports: 6 or more systems reviewed and unremarkable except as noted in History and below [facility] Medical History (Updated 12/18/24 @ 18:01 by Alem Shine MD) Hyperlipidemia ?E78.5 - Hyperlipidemia, unspecified (ICD-10) Gastroesophageal reflux disease ?K21.9 - Gastro-esophageal reflux disease without esophagitis (ICD-10) Diastolic dysfunction ?I51.89 - Other ill-defined heart diseases (ICD-10) Cerebrovascular disease ?I67.9 - Cerebrovascular disease, unspecified (ICD-10) Statin intolerance ?Z78.9 - Other specified health status (ICD-10) Essential hypertension ?I10 - Essential (primary) hypertension (ICD-10) Rosacea ?L71.9 - Rosacea, unspecified (ICD-10) Polyp of colon (11/05/20) ?K63.5 - Polyp of colon (ICD-10) Osteopenia (2019) ?M85.80 - Other specified disorders of bone density and structure, unspecified site (ICD-10) Constipation ?K59.00 - Constipation, unspecified (ICD-10) Breast cancer ?C50.919 - Malignant neoplasm of unspecified site of unspecified female breast (ICD-10) Exertional dyspnea ?R06.09 - Other forms of dyspnea (ICD-10) Heartburn ?R12 - Heartburn (ICD-10) Liver mass ?R16.0 - Hepatomegaly, not elsewhere classified (ICD-10) Surgical History History of basal cell carcinoma excision ?Z98.890 - Other specified postprocedural states (ICD-10) ?Z85.828 - Personal history of other malignant neoplasm of skin (ICD-10) History of total hysterectomy with bilateral salpingo-oophorectomy (BSO) (1986) ?Z90.710 - Acquired absence of both cervix and uterus (ICD-10) ?Z90.722 - Acquired absence of ovaries, bilateral (ICD-10) ?Z90.79 - Acquired absence of other genital organ(s) (ICD-10) History of tonsillectomy ?Z90.89 - Acquired absence of other organs (ICD-10) History of malignant melanoma (05/2016) ?Z85.820 - Personal history of malignant melanoma of skin (ICD-10) Family History Mother Breast cancer, Onset Age: 59 Uncle Colon cancer Aunt Colon cancer Diabetes Brother Diabetes Prostate cancer Father Kidney disease Sister Thyroid disease Daughter Thyroid disease Social History Narrative: 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 Code status is full. What is your current living situation?: I presently have a place to live Problems where you live: no known problems Problems where you live details: none In the past 12 months, utilities in danger of being shut off: no In past 12 months, lack of transportation kept you from medical appts, meetings, work, or getting things needed for daily living: no In the past 12 mos, have been you worried that your food would run out before you had money to buy more?: never true In the past 12 mos, the food you bought just didn't last and you didn't have money to buy more?: never true Highest level of school completed/degree received: Associate degree: occupational, technical, vocational program Smoking Status: Never smoker How often do you have a drink containing alcohol: never How often do you have six or more drinks on one occasion: Never AUDIT-C Alcohol total score: 0 Non-prescribed substance use: denies use Caffeine: No How often does anyone, including family, friends and others, physically hurt you: never How often does anyone, including family, friends and others, insult or talk down to you: never How often does anyone, including family, friends and others, threaten you with harm: never How often does anyone, including family, friends and others, scream or curse at you: never Are you using contraception or practicing any form of control: No (menopause) service: No Exam Const: Vital Signs, click to edit/add: Vital Signs - 24 hr 12/18/24 09:56 12/18/24 12:34 12/18/24 12:35 Temperature 96.8 F L Pulse Rate 84 82 Pulse Rate [Pulse Oximeter] 100 Respiratory Rate 18 14 13 Blood Pressure 113/78 Blood Pressure [Ri ght Upper Arm] 114/76 Pulse Oximetry 96 98 98 Oxygen Delivery Me thod Room Air 12/18/24 12:45 12/18/24 13:00 12/18/24 13:02 Temperature Pulse Rate 76 82 76 Pulse Rate [Pulse Oximeter] Respiratory Rate 20 Blood Pressure 118/74 Blood Pressure [Ri ght Upper Arm] Pulse Oximetry 99 98 97 Oxygen Delivery Me thod 12/18/24 13:03 12/18/24 13:15 12/18/24 13:30 Temperature Pulse Rate 76 78 76 Pulse Rate [Pulse Oximeter] Respiratory Rate 14 10 L 19 Blood Pressure Blood Pressure [Ri ght Upper Arm] Pulse Oximetry 98 98 98 Oxygen Delivery Me thod 12/18/24 13:31 12/18/24 13:45 12/18/24 14:00 Temperature Pulse Rate 74 81 87 Pulse Rate [Pulse Oximeter] Respiratory Rate 13 22 Blood Pressure 111/73 Blood Pressure [Ri ght Upper Arm] Pulse Oximetry 99 98 99 Oxygen Delivery Me thod 12/18/24 14:02 12/18/24 14:03 12/18/24 14:15 Temperature Pulse Rate 84 84 79 Pulse Rate [Pulse Oximeter] Respiratory Rate 19 11 L Blood Pressure 132/68 Blood Pressure [Ri ght Upper Arm] Pulse Oximetry 99 99 100 Oxygen Delivery Me thod 12/18/24 14:30 12/18/24 14:32 12/18/24 14:45 Temperature Pulse Rate 80 78 77 Pulse Rate [Pulse Oximeter] Respiratory Rate 16 Blood Pressure 122/80 Blood Pressure [Ri ght Upper Arm] Pulse Oximetry 99 98 99 Oxygen Delivery Me thod 12/18/24 15:00 12/18/24 15:02 Temperature Pulse Rate 76 78 Pulse Rate [Pulse Oximeter] Respiratory Rate 11 L 12 Blood Pressure 122/78 Blood Pressure [Ri ght Upper Arm] Pulse Oximetry 98 99 Oxygen Delivery Me thod This 74-year-old female is alert, interactive, no apparent distress. Sclera clear, face atraumatic but wearing a mask. Speech sounds normal. Neck is supple, no adenopathy, no masses, no jugular venous distension. Lungs are clear, good air entry, no wheezing crackles, CV regular rate and rhythm, no murmur. CV sounds upwards of normal verses mildly fast, no murmur, normal S1-S2, no S3-S4. Abdomen is soft, nontender, nondistended, no organomegaly, rebound or guarding. No calf tenderness, no lower extremity edema. Patient is ambulatory into the ED of her own accord. 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 Given the tachycardia, do think we need to consider pulmonary embolus. Per Darya, question of cardiac ischemia is needing to be addressed. Unfortunately, we will not be able to do any stress testing on this patient. By definition her troponin is elevated. She is currently hemodynamically stable outside of the tachycardia which is mild. Have discussed with patient that we are going to proceed with chest CT PE protocol, will get another troponin. She is not having any active chest pain. Will be talking to [facility] at some point. Reevaluation(s) Time of Reevaluation #1: 13:57 Reevaluation #1: Did let patient know that we are waiting to talk to [facility]. Reviewed with her that I do think hospitalization may be a possibility, she does not seem to be too happy about that. Will wait to talk to [facility]. Consultations Consultation #1: Have spoken with Magaly HULL in the triage center at [facility]. She will be looking for the chest CT which I have asked our radiology to push to [facility]. I will contact her back once I have troponin, will want to speak to Cardiology regarding this patient. 1:18 p.m.: Will fax EKG to carry, did call her on let her know that the chest CT PE protocol is negative for PE upon radiology reading. She does have the images down there, she will have cardiology call me. 2:02 p.m.: Have spoken to Dr. Miles sullivan at [facility]. Have discussed this patient and she understands the difficulty of trying to tease out any possible ischemic disease/ACS versus myocarditis. We do not have troponin T or highly sensitive troponin here. She recommends that we watch the patient overnight. She would not start steroids right away. If there is evidence of arrhythmia, heart failure or escalating troponins, steroids might be considered. She does recommend getting a formal echo which we should be able to do. I will talk to our hospitalist and see if they are in agreement. Time: 12:01 Consultation #2: Did speak with our hospitalist Dr. Shine. She does accept. Have reviewed that I suspect myocarditis over ischemia, patient is asymptomatic. Did see 1 PVC while I was in talking to patient but nothing for arrhythmia. I am not going to give this patient aspirin or heparin at this time, defer to the hospitalist but highly doubt that this is ischemic disease. May need to change planned if troponins are elevating or consider talking to Cardiology. Have updated Darya as well. Time: 14:54 Vital Signs Vital signs: Initial Vital Signs Temperature 96.8 F L 12/18/24 09:56 Temperature Source Temporal Artery Scan 06/17/25 09:56 Pulse Rate 100 12/18/24 09:56 Respiratory Rate 18 12/18/24 09:56 Blood Pressure 114/76 12/18/24 09:56 Blood Pressure Mean 88 12/18/24 09:56 Blood Pressure Position Sitting 12/18/24 09:56 Pulse Oximetry 96 12/18/24 09:56 Oxygen Delivery Method Room Air 12/18/24 09:56 Vital Signs Temperature 96.8 F L 12/18/24 09:56 Pulse Rate 100 12/18/24 09:56 Respiratory Rate 18 12/18/24 09:56 Blood Pressure 114/76 12/18/24 09:56 Pulse Oximetry 96 12/18/24 09:56 Oxygen Delivery Method Room Air 12/18/24 09:56 Temperature 98.2 F 12/18/24 15:53 Pulse Rate 83 12/18/24 15:53 Respiratory Rate 18 12/18/24 15:53 Blood Pressure 125/77 12/18/24 15:53 Pulse Oximetry 96 12/18/24 15:53 Oxygen Delivery Method Room Air 12/18/24 15:53 Medications Administered Medications: Discontinued Medications Generic Name Dose Route Start Last Admin Trade Name Freq PRN Reason Stop Dose Admin Heparin Sodium (Porcine) 500 unit 12/18/24 11:53 12/18/24 17:53 Heparin 500 Unit/5 Ml Syringe IVF 12/18/24 11:54 500 unit ONCE ONE Administration Perflutren Lipid Microsphere 2 ml 12/18/24 16:18 12/18/24 16:30 Perflutren Lipid Microspheres 2 Ml Vial IVP 12/18/24 16:19 2 ml ONCE ONE Administration Medical Decision Making Lab Data Lab results narrative: Troponin I from 755 this morning was 0.14, per Darya the cutoff is 0.1 per Cardiology for this patient. Last creatinine was 0.6 with an estimated creatinine clearance of 37.85 on December 03, hemoglobin was 10.9. Labs: Lab Results 12/18/24 12/18/24 12/18/24 Range/Units 11:17 11:18 11:45 WBC 11.74 H (4.50-11.00) K/uL RBC 3.40 L (4.00-5.20) m/uL Hgb 10.6 L (12.0-16.0) gm/dL Hct 32.3 L (33.0-51.0) % MCV 95 (80-100) fL MCH 31 (26-34) pg MCHC 33 (32-36) gm/dL RDW Coeff of Minor 13.3 (11.5-15.5) % Plt Count 233 (140-440) K/uL Neut % (Auto) 68.1 (42.0-72.0) % Lymph % (Auto) 17.2 L (20-44) % [place] % (Auto) 9.8 (0.0-11.0) % Eos % (Auto) 0.3 (0.0-7.0) % Baso % (Auto) 0.3 (0.0-3.0) % Neut # (Auto) 8.00 H (1.7-7.0) K/uL Lymph # (Auto) 2.00 (0.90-2.90) K/uL [place] # (Auto) 1.20 H (0.00-0.90) K/UL Eos # (Auto) 0.00 (0.00-0.50) K/uL Baso # (Auto) 0.00 (0.00-0.30) K/uL Abs Immat Gran (auto) 0.50 H (0.00-0.30) K/uL Imm/Tot Granulo (auto) 4.3 % Diff Slide Review Acceptable Review (Acceptable) D-Dimer Quant (PE/DVT) 0.72 H (0.00-0.50) ug/ml VBG pH 7.396 (7.32-7.43) VBG pCO2 45 (40-50) mmHG VBG pO2 37.8 (25-47) mmHG VBG HCO3 27 (21-28) mmol/L Sodium 137 (135-149) mmol/L Potassium 4.0 (3.6-5.1) mmol/L Chloride 103 (96-114) mmol/L Carbon Dioxide 27 (20-32) mmol/L Anion Gap 7 (7-15) mEq/L BUN 20 (7-30) mg/dL Creatinine 0.6 (0.5-1.5) mg/dL Estimated Creat Clear 37.85 Estimated GFR 93 ml/min Glucose 97 (60-115) mg/dL Calcium 9.5 (8.4-10.6) mg/dL Total Bilirubin 0.2 (0.1-1.5) mg/dL AST 28 (12-35) U/L ALT 12 (4-35) U/L Alkaline Phosphatase 101 (40-150) U/L Troponin I 0.13 H* (0.01-0.04) ng/mL NT-Pro-B Natriuret Pep 254 (See Note) pg/mL Total Protein 6.8 (6.0-8.3) g/dL Albumin 4.1 (3.3-5.0) g/dL Lab Acknowledgement Test Added POC Troponin I 0.06 H (0.01-0.04) ng/ml Imaging Data CT scan - chest: Attestation: I have reviewed the pertinent imaging results. Radiologist's impression: Patient: SHONNA LEIVA Facility:?[facility] Patient ID:?[id number] Site Patient ID:?[id number]. Site :?[id number] Study:?CT-Chest Angio W/ 95CC ISOVUE-370 PE PROTOCOL-12/18/2024 11:59:05 AM Ordering Physician:Natividad Sun Final Report: Indication: TACHYCARDIA, ELEVATED TROP, CHEMO MYOCARDITIS VS PE Technique: CTA chest, pulmonary embolism protocol, utilizing 95 mL Isovue 370 Comparison: CTA chest on October 30, 2024 Findings: Lines/devices: Right-sided Port-A-Cath with tip terminating in the lower SVC. Lower neck: The visualized thyroid is unremarkable. Cardiovascular: Contrast opacification of the pulmonary arterial tree is adequate. Heart size is normal. Thoracic aorta and pulmonary artery are normal in caliber. No significant atherosclerotic calcifications of the aortic arch. Coronary arterial calcifications. No pulmonary embolism. Mediastinum and lymph nodes: Unremarkable. No pathologic mediastinal or hilar lymphadenopathy by size criteria. Lungs: No focal consolidation. Dependent atelectasis. Linear bandlike opacification of the lung bases bilaterally, likely subsegmental atelectasis and/or scarring. There are several scattered pulmonary micronodules measuring up to 3 mm, for example in the left lower lobe (series number 4, image 94). There are few scattered regions of small subpleural ground-glass opacities bilaterally, unchanged compared to prior exam. Airways: Trachea remains patent and midline. Mild diffuse peribronchial wall thickening. Pleura: No pleural effusions or pneumothorax. Chest wall: Left axillary biopsy clip. Prominent axillary lymph nodes that do not meet size criteria for lymphadenopathy. Bones: No acute osseous abnormalities. Mild degenerative changes of the thoracic spine. Upper abdomen: Lobulated simple appearing cystic lesion within the left hepatic lobe, probably hepatic cysts, incompletely characterized on this examination. No acute findings in the visualized upper abdomen. Impression: No CT evidence of an acute process involving the thorax; specifically, no pulmonary embolism. Please note that all CT scans at this facility use dose modulation, iterative reconstruction, and/or weight-based dosing when appropriate to reduce radiation dose to as low as reasonably achievable. Dictated by Blanco Umanzor MD @ 12/18/2024 12:15:47 PM (Electronic Signature) ECG Data Attestation: I personally reviewed and interpreted this ECG as follows: (Sinus tachycardia, 101 beats per minute. No definitive ST segment or T-wave changes indicative of any cardiac injury. One hundred compared to EKG from 10/30/2024, sinus tachycardia has replaced normal sinus rhythm.) Prior ECG tracings: available for review (Sinus rhythm 87 beats per minute from October 2024.) Discharge Plan Discharge Clinical Impression: Elevated troponin I level Patient Disposition: Admitted As Observation
--- NOTE | 2024-12-18 11:27 | CRLHL7_ITS ---
For Patients: As a result of the Century Cures Act, medical imaging exams and procedure reports are released immediately into your electronic medical record. You may view this report before your referring provider. If you have questions, please contact your health care provider. Indication: TACHYCARDIA, ELEVATED TROP, CHEMO MYOCARDITIS VS PE Technique: CTA chest, pulmonary embolism protocol, utilizing 95 mL Isovue 370 Comparison: CTA chest on October 30, 2024 Findings: Lines/devices: Right-sided Port-A-Cath with tip terminating in the lower SVC. Lower neck: The visualized thyroid is unremarkable. Cardiovascular: Contrast opacification of the pulmonary arterial tree is adequate. Heart size is normal. Thoracic aorta and pulmonary artery are normal in caliber. No significant atherosclerotic calcifications of the aortic arch. Coronary arterial calcifications. No pulmonary embolism. Mediastinum and lymph nodes: Unremarkable. No pathologic mediastinal or hilar lymphadenopathy by size criteria. Lungs: No focal consolidation. Dependent atelectasis. Linear bandlike opacification of the lung bases bilaterally, likely subsegmental atelectasis and/or scarring. There are several scattered pulmonary micronodules measuring up to 3 mm, for example in the left lower lobe (series number 4, image 94). There are few scattered regions of small subpleural ground-glass opacities bilaterally, unchanged compared to prior exam. Airways: Trachea remains patent and midline. Mild diffuse peribronchial wall thickening. Pleura: No pleural effusions or pneumothorax. Chest wall: Left axillary biopsy clip. Prominent axillary lymph nodes that do not meet size criteria for lymphadenopathy. Bones: No acute osseous abnormalities. Mild degenerative changes of the thoracic spine. Upper abdomen: Lobulated simple appearing cystic lesion within the left hepatic lobe, probably hepatic cysts, incompletely characterized on this examination. No acute findings in the visualized upper abdomen. Impression: No CT evidence of an acute process involving the thorax; specifically, no pulmonary embolism. Please note that all CT scans at this facility use dose modulation, iterative reconstruction, and/or weight-based dosing when appropriate to reduce radiation dose to as low as reasonably achievable. Dictated by Blanco Umanzor MD @ 12/18/2024 12:15:47 PM (Electronically Signed)
[2024-12-18 11:57] LABS: HCO3 VBG 27 mmol/L (21-28); PCO2 VBG 45 mmHG (40-50); PO2 VBG 37.8 mmHG (25-47); pH VBG 7.396 (7.32-7.43)
[2024-12-18 11:58] LABS: Basophils Percent Auto 0.3 % (0.0-3.0); Eosinophils Percent Auto 0.3 % (0.0-7.0); Hematocrit 32.3 % (33.0-51.0); Hemoglobin* 10.6 gm/dL (12.0-16.0); Immature Granulocytes Pct Auto 4.3 %; Lymphocytes Percent Auto 17.2 % (20-44); Mean Corpuscular HGB Conc 33 gm/dL (32-36); Mean Corpuscular Hemoglobin 31 pg (26-34); Mean Corpuscular Volume 95 fL (80-100); Monocytes Percent Auto 9.8 % (0.0-11.0); Neutrophils Percent Auto 68.1 % (42.0-72.0); Platelet Count* 233 K/uL (140-440); RDW Coefficient of Variation % 13.3 % (11.5-15.5); White Blood Count* 11.74 K/uL (4.50-11.00)
[2024-12-18 12:00] LABS: Slide Review Reflex Yes
--- OUTSIDE RECORDS SUMMARY | 2024-12-18 12:04 | XMS_ITS | Clinical Summary ---
Author Organization [facility] Address 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 Name Role Phone Norma Corrales Unavailable Unavailable Conditions or Problems Problem Name Problem Code Onset Date Status Entry Date Provider Comment Standard Description Annotate Hx of lacunar cerebrovascu lar accident 72872675424 101 (SNOMED CT) 07/11 Active 07/11 Sherry Radha History of lacunar cerebrovascular accident TIA 990640356 (SNOMED CT) 07/11 Active 07/11 Joshua Hinojosa MD Transient cerebral ischemia Lacunar stroke 042792981 (SNOMED CT) 07/11 Inactive 07/11 Joshua Hinojosa MD Lacunar infarction Medications Medication Instructions Start Date Stop Date Generic Name NDC Provider VALSARTAN 40 MG TABS valsartan 91571390457 Nichol VASQUEZ-C ASPIRIN LOW DOSE 81 MG TBEC Take 1 tablet by mouth once a day aspirin 31382455074 Nichol VASQUEZ-C CVS HAIR/SKIN/NAIL S TABS multivitamin with minerals 94504183585 Nichol VASQUEZ-C OYSTER SHELL CALCIUM/D 500-10 MG-MCG TABS calcium carbonate-vitam in d3 70761756938 Nichol VASQUEZ-C Collagen Skin Renewal 30 mg-833.3 mg tablet ascorbic acid-collagen 40921167049 Nichol VASQUEZ-C antronex Standard Process brand supplement antronex Nichol VASQUEZ-C congaplex Standard Process brand supplement congaplex Nichol VASQUEZ-C livaplex Standard Process brand supplement livaplex Nichol Sheelanazia Bowers PA-C black currant seed oil Standard Process brand supplement black currant seed oil Nichol Pichardotasneem ERWIN zymex II Standard Process brand supplement zymex II Nichol Pichardotasneem ERWIN AMLODIPINE BESYLATE 2.5 MG TABS amlodipine [id number] Joshua Hinojosa MD VALSARTAN 80 MG TABS valsartan [id number] Joshua Hinojosa MD Medications Administered No information available. 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, [address], [place], [address], Pending order Follow up MARIO Pending order [...] Name Date Entry Date ORDERS Follow up [facility]-[id number] Documentation of current medicatio ns ORDERS Patient Instructions ORDERS Patient Instructions ORDERS Obtain outside records 11/08 ORDERS Obtain outside records 11/08 ORDERS Follow up [facility]IO ORDERS Obtain outside records 05/11 ORDERS Patient Instructions ORDERS Other Test [facility]-[id number] Documentation of current medicatio ns Vital Signs Date Name Value Unit Description BP Diastolic 80 mm[Hg] blood pressu re, diastolic BP Systolic 120 mm[Hg] blood pressur e, systolic Heart Rate 70 /min pulse rate Immunizations No information available. Advance Directives No information available.
[2024-12-18 12:11] LABS: Chloride* 103 mmol/L (96-114)
[2024-12-18 12:11] LABS: Troponin, Point-of-Care* 0.06 ng/ml (0.01-0.04)
[2024-12-18 12:12] LABS: Albumin* 4.1 g/dL (3.3-5.0); Sodium* 137 mmol/L (135-149)
[2024-12-18 12:14] LABS: Alanine Aminotransferase* 12 U/L (4-35); Anion Gap 7 mEq/L (7-15); Aspartate Amino Transferase* 28 U/L (12-35); Blood Urea Nitrogen* 20 mg/dL (7-30); Carbon Dioxide* 27 mmol/L (20-32); Creatinine* 0.6 mg/dL (0.5-1.5); Est. Creatinine Clearance* 37.85; Estimated Glomerular Filt Rate 93 ml/min
[2024-12-18 12:15] LABS: Alkaline Phosphatase* 101 U/L (40-150); Bilirubin Total* 0.2 mg/dL (0.1-1.5); Calcium* 9.5 mg/dL (8.4-10.6); Glucose* 97 mg/dL (60-115); Total Protein* 6.8 g/dL (6.0-8.3)
[2024-12-18 12:18] LABS: D Dimer Quantitative* 0.72 ug/ml (0.00-0.50)
[2024-12-18 12:32] LABS: NT Pro B Type NatriureticPept* 254 pg/mL (See Note); Troponin I* 0.13 ng/mL (0.01-0.04)
[2024-12-18 13:18] LABS: Slide Review Acceptable Review (Acceptable)
--- NOTE | 2024-12-18 16:18 | PM.IMHP1 ---
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 Meade at [place] on 11/07/24 - cardiac MRI 11/19/2024 with results below - TTE 12/18 reassuring with normal wall thickness, systolic function of 60-65% - [facility] consulted from ER 12/18: recommend serial troponins, telemetry, monitoring FINAL IMPRESSION 1. Small region of mid-wall fibrosis in the basal anterolateral wall without evidence of myocardial edema. 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 2. Normal left ventricular size, wall thickness, systolic function, and longitudinal strain. Calculated LVEF is 63%. 3. Normal right ventricular size and systolic function. Calculated RVEF is 56%. 4. Large cyst in the left lobe of the liver, measuring 37 mm in maximum dimension. 5. No myocardial infarction. Nonspecific faint-appearing fibrosis at the right ventricular insertion into the mid inferoseptum. 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/26; treated with chemotherapy and immune therapy - S/p 4 cycles of neoadjuvant pembrolizumab + carboplatin and paclitaxel days 1,8,15 - Current: cycle 1 of neoadjuvant doxorubicin + cyclophosphamide with pegfilgrastim and cycle 5 pembrolizumab on 10/15/24 Status: Acute Plan - per above (troponins, telemetry) - if remains stable, likely d/c tomorrow with close Oncology/Cardiology f/u Hospitalist- H&P: HPI History of Present Illness Date Seen: 12/18/24 Chief complaint: From [facility] Narrative: Paloma Sommers is a 74yo female with breast cancer who is currently receiving treatment with doxorubicin/cyclophosphamide and pembrolizumab who presented to the ER at the behest of her Oncology team for troponin of 0.14 Troponin has been followed weekly since late October (at which time she was seen and admitted for BANDA, noted to have a troponin elevation of 0.05, 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 She was seen by Cardio-Oncology at [place] (Dr. Meade) as noted below, who recommended weekly troponin evaluations. This morning, Troponin was 0.14. Cardiology at [place] consulted from ER; recommend serial troponins, telemetry, TTE. Paloma has no chest pain at rest, still easily fatigued but does not have BANDA as severely as during October admission. She had a cardiac MRI in November that was reassuring. TTE completed today with normal LV size and function with EF of 60-65%. Oncology timeline below. Histories reviewed. Dr. Fregoso is PCP. 11/2023 ??Mammogram screening: no radiographic evidence of malignancy BI-RADS category 1. ? Left breast lump?: [place]-sized 06/15/2024 diagnostic mammogram- suspicious left breast mass at 1:00 a.m. position, 1.9*1.5*2.0 cm- BI-RADS category 4? 06/21/2024 left breast ultrasound-guided core biopsy positive for invasive ductal carcinoma grade 3 angiolymphatic invasion absent. ?ER negative DE negative HER2 IHC 1+. ?Ki-67 90%.? 06/21/2024 clip placement? 06/29/2024 breast MRI- right breast no suspicious mass or enhancement. ?Left breast new breast cancer visualized as an enhancing mass in the left upper outer quadrant measuring 2.1 into 1.2 into 1.8 cm. ?Right axillary lymph nodes negative. ?2 indeterminate lymph nodes in the left axilla. ?BI-RADS category 6.? 07/11/2024 left axilla lymph node core biopsy positive for benign lymph node. ?Negative for metastatic carcinoma in the sample.? 07/16/2024 comes in for medical oncology evaluation indicates that she 1st noticed the lump in her left breast as she was trying to comb her hair and had her arms above her shoulder level. Denies any pain or discomfort. Denies any skin involvement. Denies any nipple changes or nipple discharge. Denies any bone pains or weight changes. 08/02/2024 PET scan: No evidence of distant metastases however concern around left axillary lymph node. 1. Moderately FDG avid 1.9 cm mass in the left upper-outer breast representing biopsy-proven invasive ductal carcinoma. 2. Mildly FDG avid left axillary lymph node, subcentimeter in short axis and inferomedial to a biopsy-proven left axillary benign lymph node, is nonspecific for a metastatic lymph node versus reactive/inflammatory change. Correlate with tissue sampling. 07/23/2024 - 10/09/2023 4 cycles of neoadjuvant pembrolizumab + 4 cycles of Carboplatinum AUC 1 and Taxol 80 milligrams/meter sq days 1, 8, 15. 08/09/2024 repeat biopsy from left axillary lymph node. 10/15/24 cycle 1 neoadjuvant doxorubicin, cyclophospamide+ pegfilgrastim. Cycle 5 pembrolizumab 10/30/24 evaluated in ER with exertional dyspnea and chest pain and was admitted overnight for consideration of ICI myocarditis. ECHO was performed and she had normal ejection fraction; strain not assessed. Troponins in the ER were 0.05 at 1350, then 0.08 the next morning 10/31 at 0620, then 0.07 at 0947 (ULN at institution is 0.04). Pro-BNP (250) and CRP (0.8) were not elevated. Did not check CK. Given troponin trend, she was discharged. 11/07/24 cardio-oncology consult. Interestingly, patient was assessed and also reviewed her Apple watch that. She had an increase in her resting heart rate as well as her walking heart rate, a change in her estimated peak VO2, and change in her oxygen saturations with ambulation. They also reviewed that paclitaxel can lead to dyspnea and that Adriamycin, Cytoxan, and pembrolizumab can all cause myocarditis. There was no direct contraindication to proceeding with therapy, but did recommend risk benefit discussion given the timeline as well as a cardiac MRI for further assessment. 11/13/2024 resumed cycle 2 doxorubicin/cyclophosphamide with pembrolizumab 11/14/2024 breast MRI showed response to therapy with no residual disease in the breast. 11/21/2024 cardiac MRI year showed small area of mid wall fibrosis in basal anterolateral wall without evidence of myocardial edema. Nonspecific, but could be consistent with prior biopsy related injury. There is no evidence of myocardial infarction or change in strain or systolic function. There was nonspecific faint appearing fibrosis of the right ventricular insertion into the mid inferior septum. Cardio oncology recommends serial troponins during systemic therapy. Review of Systems Status of ROS: Reports: 10 or more systems reviewed and unremarkable except as noted in History and below Narrative: - no current pain or nausea Medical Decision Making Medical Decision Making Code Status: Witnessed arrest only for Code Status, no prolonged resuscitation Has patient completed a Health Care Directive: No During This Stay, Who Would You Like To Make Decisions For You In The Event You Are Unable To Make Them For Yourself?: Nicole Brunner [facility] Medical History (Updated 12/18/24 @ 18:01 by Alem Shine MD) Hyperlipidemia ?E78.5 - Hyperlipidemia, unspecified (ICD-10) Gastroesophageal reflux disease ?K21.9 - Gastro-esophageal reflux disease without esophagitis (ICD-10) Diastolic dysfunction ?I51.89 - Other ill-defined heart diseases (ICD-10) Cerebrovascular disease ?I67.9 - Cerebrovascular disease, unspecified (ICD-10) Statin intolerance ?Z78.9 - Other specified health status (ICD-10) Essential hypertension ?I10 - Essential (primary) hypertension (ICD-10) Rosacea ?L71.9 - Rosacea, unspecified (ICD-10) Polyp of colon (11/05/20) ?K63.5 - Polyp of colon (ICD-10) Osteopenia (2019) ?M85.80 - Other specified disorders of bone density and structure, unspecified site (ICD-10) Constipation ?K59.00 - Constipation, unspecified (ICD-10) Breast cancer ?C50.919 - Malignant neoplasm of unspecified site of unspecified female breast (ICD-10) Exertional dyspnea ?R06.09 - Other forms of dyspnea (ICD-10) Heartburn ?R12 - Heartburn (ICD-10) Liver mass ?R16.0 - Hepatomegaly, not elsewhere classified (ICD-10) Surgical History History of basal cell carcinoma excision ?Z98.890 - Other specified postprocedural states (ICD-10) ?Z85.828 - Personal history of other malignant neoplasm of skin (ICD-10) History of total hysterectomy with bilateral salpingo-oophorectomy (BSO) (1986) ?Z90.710 - Acquired absence of both cervix and uterus (ICD-10) ?Z90.722 - Acquired absence of ovaries, bilateral (ICD-10) ?Z90.79 - Acquired absence of other genital organ(s) (ICD-10) History of tonsillectomy ?Z90.89 - Acquired absence of other organs (ICD-10) History of malignant melanoma (05/2016) ?Z85.820 - Personal history of malignant melanoma of skin (ICD-10) Family History Mother Breast cancer, Onset Age: 59 Uncle Colon cancer Aunt Colon cancer Diabetes Brother Diabetes Prostate cancer Father Kidney disease Sister Thyroid disease Daughter Thyroid disease Social History Narrative: 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 Code status is full. What is your current living situation?: I presently have a place to live Problems where you live: no known problems Problems where you live details: none In the past 12 months, utilities in danger of being shut off: no In past 12 months, lack of transportation kept you from medical appts, meetings, work, or getting things needed for daily living: no In the past 12 mos, have been you worried that your food would run out before you had money to buy more?: never true In the past 12 mos, the food you bought just didn't last and you didn't have money to buy more?: never true Highest level of school completed/degree received: Associate degree: occupational, technical, vocational program Smoking Status: Never smoker How often do you have a drink containing alcohol: never How often do you have six or more drinks on one occasion: Never AUDIT-C Alcohol total score: 0 Non-prescribed substance use: denies use Caffeine: No How often does anyone, including family, friends and others, physically hurt you: never How often does anyone, including family, friends and others, insult or talk down to you: never How often does anyone, including family, friends and others, threaten you with harm: never How often does anyone, including family, friends and others, scream or curse at you: never Are you using contraception or practicing any form of control: No (menopause) service: No Meds Home Medications and Allergies Home Medications ?Medication ?Instructions ?Recorded ?Confirmed ?Type aspirin 81 mg tablet,delayed 81 mg PO DAILY 07/20/22 12/18/24 History release albuterol sulfate 90 mcg/actuation 2 puff inhalation Q6H PRN 03/13/24 12/18/24 Rx aerosol inhaler shortness of breath or wheezing #8.5 grams prochlorperazine maleate 5 mg 5 mg PO Q8H PRN nausea and 07/16/24 12/18/24 Rx tablet (Compazine) vomiting #60 tabs colostrum, bovine 1 ea PO DAILY 07/25/24 12/18/24 History aluminum hydrox-magnesium carb 160 2 tab PO QID PRN 10/16/24 12/18/24 History mg-105 mg chewable tablet (Gaviscon Extra Strength) dexamethasone 4 mg tablet 8 mg PO QDAY PRN 10/31/24 12/18/24 History esomeprazole magnesium 20 mg 20 mg PO DAILY 10/31/24 12/18/24 History capsule,delayed release (Nexium) olanzapine 2.5 mg tablet 2.5 mg PO HS PRN 10/31/24 12/18/24 History ondansetron HCl 4 mg tablet 4 mg PO Q8H PRN nausea and vomiting 10/31/24 12/18/24 History polyethylene glycol 3350 17 gram 17 g PO DAILY PRN 11/05/24 12/18/24 History oral powder packet (Miralax) calcium 600 mg (as 2 tab PO DAILY 11/12/24 12/18/24 History carbonate)-vitamin D3 10 mcg (400 unit) tablet (Calcium with Vitamin D) amlodipine 2.5 mg tablet 2.5 mg PO DAILY 12/18/24 12/18/24 History Allergies Allergy/AdvReac Type Severity Reaction Status Date / Time cetirizine Allergy Unknown Drowsy Verified 12/18/24 11:46 clove Allergy Verified 12/18/24 11:46 milk Allergy Verified 12/18/24 11:46 soy Allergy Verified 12/18/24 11:46 wheat Allergy Verified 12/18/24 11:46 Exam Narrative: Exam Narrative: GEN: Alert and oriented, nontoxic HEENT: Normal external ears, + alopecia, EOMIs bilaterally, no scleral icterus CV: RRR, No concerning murmurs, no carotid bruits R: LCTA bilaterally without concerning wheezing Ext: wwp, no concerning edema Skin: No concerning skin lesions or rashes on exposed skin Neuro: Nonfocal Psych: Appropriate Const: Vital Signs, click to edit/add: Vital Signs - 24 hr 12/18/24 09:56 12/18/24 12:34 12/18/24 12:35 Temperature 96.8 F L Pulse Rate 84 82 Pulse Rate [Pulse Oximeter] 100 Respiratory Rate 18 14 13 Blood Pressure 113/78 Blood Pressure [Ri ght Arm] Blood Pressure [Ri ght Upper Arm] 114/76 Pulse Oximetry 96 98 98 Oxygen Delivery Me thod Room Air 12/18/24 12:45 12/18/24 13:00 12/18/24 13:02 Temperature Pulse Rate 76 82 76 Pulse Rate [Pulse Oximeter] Respiratory Rate 20 Blood Pressure 118/74 Blood Pressure [Ri ght Arm] Blood Pressure [Ri ght Upper Arm] Pulse Oximetry 99 98 97 Oxygen Delivery Me thod 12/18/24 13:03 12/18/24 13:15 12/18/24 13:30 Temperature Pulse Rate 76 78 76 Pulse Rate [Pulse Oximeter] Respiratory Rate 14 10 L 19 Blood Pressure Blood Pressure [Ri ght Arm] Blood Pressure [Ri ght Upper Arm] Pulse Oximetry 98 98 98 Oxygen Delivery Me thod 12/18/24 13:31 12/18/24 13:45 12/18/24 14:00 Temperature Pulse Rate 74 81 87 Pulse Rate [Pulse Oximeter] Respiratory Rate 13 22 Blood Pressure 111/73 Blood Pressure [Ri ght Arm] Blood Pressure [Ri ght Upper Arm] Pulse Oximetry 99 98 99 Oxygen Delivery Me thod 12/18/24 14:02 12/18/24 14:03 12/18/24 14:15 Temperature Pulse Rate 84 84 79 Pulse Rate [Pulse Oximeter] Respiratory Rate 19 11 L Blood Pressure 132/68 Blood Pressure [Ri ght Arm] Blood Pressure [Ri ght Upper Arm] Pulse Oximetry 99 99 100 Oxygen Delivery Me thod 12/18/24 14:30 12/18/24 14:32 12/18/24 14:45 Temperature Pulse Rate 80 78 77 Pulse Rate [Pulse Oximeter] Respiratory Rate 16 Blood Pressure 122/80 Blood Pressure [Ri ght Arm] Blood Pressure [Ri ght Upper Arm] Pulse Oximetry 99 98 99 Oxygen Delivery Me thod 12/18/24 15:00 12/18/24 15:02 12/18/24 15:53 Temperature 98.2 F Pulse Rate 76 78 Pulse Rate [Pulse Oximeter] 83 Respiratory Rate 11 L 12 18 Blood Pressure 122/78 Blood Pressure [Ri ght Arm] 125/77 Blood Pressure [Ri ght Upper Arm] Pulse Oximetry 98 99 96 Oxygen Delivery Me thod Room Air 12/18/24 15:53 Temperature Pulse Rate Pulse Rate [Pulse Oximeter] Respiratory Rate 18 Blood Pressure Blood Pressure [Ri ght Arm] Blood Pressure [Ri ght Upper Arm] Pulse Oximetry 96 Oxygen Delivery Me thod Room Air Hospitalist - H&P: Result Labs Labs: Short CBC 12/18/24 Range/Units 11:45 WBC 11.74 H (4.50-11.00) K/uL Hgb 10.6 L (12.0-16.0) gm/dL Hct 32.3 L (33.0-51.0) % Plt Count 233 (140-440) K/uL BMP 12/18/24 11:45 Sodium 137 Potassium 4.0 Chloride 103 Carbon Dioxide 27 BUN 20 Creatinine 0.6 Glucose 97 Calcium 9.5 Cardiac Enzymes 12/18/24 Range/Units 11:45 Troponin I 0.13 H* (0.01-0.04) ng/mL Liver Function 12/18/24 Range/Units 11:45 Total Bilirubin 0.2 (0.1-1.5) mg/dL AST 28 (12-35) U/L ALT 12 (4-35) U/L Alkaline Phosphatase 101 (40-150) U/L Albumin 4.1 (3.3-5.0) g/dL
[2024-12-18] MEDS: PERFLUTREN LIPID MICROSPHERES 2 ML VIAL IVP (16:30)
[2024-12-18] MEDS: HEPARIN 500 UNIT/5 ML SYRINGE IVF (17:53)
[2024-12-18 18:42] LABS: Troponin I* 0.14 ng/mL (0.01-0.04)
[2024-12-19] MEDS: HEPARIN 500 UNIT/5 ML SYRINGE IVF ×3 (00:16→09:14)
[2024-12-19 01:03] LABS: Troponin I* 0.14 ng/mL (0.01-0.04)
[2024-12-19 03:00] VITALS: BP 106/68; PULSE 86; RESP 16; TEMP 36.6; O2SAT 95
[2024-12-19] MEDS: OMEPRAZOLE 20 MG CAPSULE DR PO (06:35)
--- NOTE | 2024-12-19 06:54 | PC.NURSE ---
End of shift report [id number]: VSS. Alert and orientated. Pleasant and cooperative. Afebrile. Pt denies pain. Pt denies SOB. Port is intact in R chest and heparin locked. Pt is ind in room. Pt is resting in bed, call light within reach.?
[2024-12-19 06:56] LABS: Basophils Absolute Auto 0.08 K/uL (0.00-0.30); Basophils Percent Auto 0.9 % (0.0-3.0); Eosinophils Absolute Auto 0.04 K/uL (0.00-0.50); Eosinophils Percent Auto 0.5 % (0.0-7.0); Hemoglobin* 10.3 gm/dL (12.0-16.0); Immature Granulocytes Abs Auto 0.33 K/uL (0.00-0.30); Immature Granulocytes Pct Auto 3.9 %; Lymphocytes Absolute Auto 2.03 K/uL (0.90-2.90); Lymphocytes Percent Auto 23.8 % (20-44); Mean Corpuscular HGB Conc 33 gm/dL (32-36); Mean Corpuscular Hemoglobin 32 pg (26-34); Mean Corpuscular Volume 95 fL (80-100); Monocytes Percent Auto 12.9 % (0.0-11.0); Neutrophils Absolute Auto 4.95 K/uL (1.7-7.0); Platelet Count* 256 K/uL (140-440); RDW Coefficient of Variation % 13.2 % (11.5-15.5); Red Blood Count 3.26 m/uL (4.00-5.20); White Blood Count* 8.53 K/uL (4.50-11.00)
[2024-12-19 07:00] VITALS: BP 107/77; PULSE 86; PULSE 87; RESP 16; TEMP 36.6; O2SAT 96
[2024-12-19 07:00] LABS: Slide Review Reflex No
[2024-12-19 07:33] LABS: Chloride* 103 mmol/L (96-114); Potassium* 3.9 mmol/L (3.6-5.1); Sodium* 138 mmol/L (135-149)
[2024-12-19 07:36] LABS: Anion Gap 6 mEq/L (7-15); Blood Urea Nitrogen* 15 mg/dL (7-30); Calcium* 9.2 mg/dL (8.4-10.6); Carbon Dioxide* 29 mmol/L (20-32); Creatine Kinase* 36 U/L (41-117); Creatinine* 0.6 mg/dL (0.5-1.5); Est. Creatinine Clearance* 37.85; Estimated Glomerular Filt Rate 93 ml/min; Glucose* 88 mg/dL (60-115)
[2024-12-19 07:56] LABS: Troponin I* 0.15 ng/mL (0.01-0.04)
--- NOTE | 2024-12-19 07:57 | PC.NURSE ---
Critical lab: Troponin 0.15. Reported to hospitalist.
[2024-12-19] MEDS: ASPIRIN 81 MG TABLET EC PO (09:14)
[2024-12-19] MEDS: AMLODIPINE 5 MG TABLET 2.5 MG PO (09:14)
[2024-12-19] MEDS: SODIUM CHLORIDE 0.9 % (FLUSH) 10 ML SYRINGE 5 ML IVF (09:15)
[2024-12-19 09:46] VITALS: BMI 27.1
[2024-12-19 10:36] LABS: Troponin I* 0.14 ng/mL (0.01-0.04)
--- NOTE | 2024-12-19 11:01 | P.DS_ITS ---
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 Meade at [place] on 11/07/24 - cardiac MRI 11/19/2024 with results below - TTE 12/18 reassuring with normal wall thickness, systolic function of 60-65% - [place] [facility] consulted from ER 12/18: recommend serial troponins, telemetry, monitoring FINAL IMPRESSION 1. Small region of mid-wall fibrosis in the basal anterolateral wall without ev idence of myocardial edema. 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 2. Normal left ventricular size, wall thickness, systolic function, and longitudinal strain. Calculated LVEF is 63%. 3. Normal right ventricular size and systolic function. Calculated RVEF is 56%. 4. Large cyst in the left lobe of the liver, measuring 37 mm in maximum dimension. 5. No myocardial infarction. Nonspecific faint-appearing fibrosis at the right ventricular insertion into the mid inferoseptum. Serial troponins revealed 0.14 -> 0.15 -> 0.14. Remained asymptomatic, no chest pain no shortness of breath. Echocardiogram without evidence of acute myocarditis. Previous cardiac MRI in November showed myocardial edema suspicious for recent myocarditis. Discussion with patient and spouse, close outpatient follow-up with Oncology today and Cardiology to determine plan of care. Next therapy is scheduled for this upcoming Tuesday. 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 Patient admitted for serial troponins, cardiac monitoring. Troponins while elevated remain flat. hand grinder unremarkable. Close outpatient follow-up with Oncology and Cardiology for plan of care. Status at Discharge Overall status at discharge: patient is back to baseline Time Spent with Patient Time attestation: Total time spent providing and/or coordinating discharge services: Time spent: Greater than 30 minutes Exam Narrative: Exam Narrative: PHYSICAL EXAM General: Pleasant, conversant, NAD Cardiovascular: RRR Pulmonary: No dyspnea Neurological: Alert, answering questions appropriately Skin: Warm, dry. Const: Vital Signs, click to edit/add: Vital Signs - 24 hr 12/18/24 12:34 12/18/24 12:35 12/18/24 12:45 Temperature Pulse Rate 84 82 76 Pulse Rate [Pulse Oximeter] Respiratory Rate 14 13 Blood Pressure 113/78 Blood Pressure [Ri ght Arm] Pulse Oximetry 98 98 99 Oxygen Delivery [facility] 12/18/24 13:00 12/18/24 13:02 12/18/24 13:03 Temperature Pulse Rate 82 76 76 Pulse Rate [Pulse Oximeter] Respiratory Rate 20 14 Blood Pressure 118/74 Blood Pressure [Ri ght Arm] Pulse Oximetry 98 97 98 Oxygen Delivery [facility] 12/18/24 13:15 12/18/24 13:30 12/18/24 13:31 Temperature Pulse Rate 78 76 74 Pulse Rate [Pulse Oximeter] Respiratory Rate 10 L 19 13 Blood Pressure 111/73 Blood Pressure [Ri ght Arm] Pulse Oximetry 98 98 99 Oxygen Delivery [facility] 12/18/24 13:45 12/18/24 14:00 12/18/24 14:02 Temperature Pulse Rate 81 87 84 Pulse Rate [Pulse Oximeter] Respiratory Rate 22 19 Blood Pressure 132/68 Blood Pressure [Ri ght Arm] Pulse Oximetry 98 99 99 Oxygen Delivery [facility] 12/18/24 14:03 12/18/24 14:15 12/18/24 14:30 Temperature Pulse Rate 84 79 80 Pulse Rate [Pulse Oximeter] Respiratory Rate 11 L 16 Blood Pressure Blood Pressure [Ri ght Arm] Pulse Oximetry 99 100 99 Oxygen Delivery [facility] 12/18/24 14:32 12/18/24 14:45 12/18/24 15:00 Temperature Pulse Rate 78 77 76 Pulse Rate [Pulse Oximeter] Respiratory Rate 11 L Blood Pressure 122/80 Blood Pressure [Ri ght Arm] Pulse Oximetry 98 99 98 Oxygen Delivery Me thod 12/18/24 15:02 12/18/24 15:53 12/18/24 15:53 Temperature 98.2 F Pulse Rate 78 Pulse Rate [Pulse Oximeter] 83 Respiratory Rate 12 18 18 Blood Pressure 122/78 Blood Pressure [Ri ght Arm] 125/77 Pulse Oximetry 99 96 96 Oxygen Delivery Me thod Room Air Room Air 12/18/24 19:00 12/18/24 23:00 12/18/24 23:00 Temperature 98.5 F 97.7 F Pulse Rate 80 Pulse Rate [Pulse Oximeter] 80 83 Respiratory Rate 18 16 Blood Pressure Blood Pressure [Ri ght Arm] 113/79 113/73 Pulse Oximetry 97 95 Oxygen Delivery Me thod Room Air Room Air 12/19/24 03:00 12/19/24 07:00 12/19/24 07:00 Temperature 97.9 F 97.9 F Pulse Rate Pulse Rate [Pulse Oximeter] 86 87 87 Respiratory Rate 16 16 16 Blood Pressure Blood Pressure [Ri ght Arm] 106/68 107/77 Pulse Oximetry 95 96 Oxygen Delivery Me thod Room Air Room Air 12/19/24 07:00 Temperature Pulse Rate 86 Pulse Rate [Pulse Oximeter] Respiratory Rate Blood Pressure Blood Pressure [Ri ght Arm] Pulse Oximetry Oxygen Delivery Me thod DS: Data Data Completed and Pending Labs on day of discharge: Labs from last 24 hours 12/19/24 12/19/24 12/19/24 Unknown 06:45 00:15 WBC 8.53 RBC 3.26 L Hgb 10.3 L Hct 31.0 L MCV 95 MCH 32 MCHC 33 RDW Coeff of Minor 13.2 Plt Count 256 Neut % (Auto) 58.0 Lymph % (Auto) 23.8 [place] % (Auto) 12.9 H Eos % (Auto) 0.5 Baso % (Auto) 0.9 Neut # (Auto) 4.95 Lymph # (Auto) 2.03 Davidson # (Auto) 1.10 H Eos # (Auto) 0.04 Baso # (Auto) 0.08 Abs Immat Gran (auto) 0.33 H Imm/Tot Granulo (auto) 3.9 Diff Slide Review D-Dimer Quant (PE/DVT) VBG pH VBG pCO2 VBG pO2 VBG HCO3 Sodium 138 Potassium 3.9 Chloride 103 Carbon Dioxide 29 Anion Gap 6 L BUN 15 Creatinine 0.6 Estimated Creat Clear 37.85 Estimated GFR 93 Glucose 88 Calcium 9.2 Total Bilirubin AST ALT Alkaline Phosphatase Total Creatine Kinase 36 L Troponin I 0.14 H* 0.15 H* 0.14 H* NT-Pro-B Natriuret Pep Total Protein Albumin Lab Acknowledgement POC Troponin I 12/18/24 12/18/24 12/18/24 17:50 11:45 11:18 WBC 11.74 H RBC 3.40 L Hgb 10.6 L Hct 32.3 L MCV 95 MCH 31 MCHC 33 RDW Coeff of Minor 13.3 Plt Count 233 Neut % (Auto) 68.1 Lymph % (Auto) 17.2 L [place] % (Auto) 9.8 Eos % (Auto) 0.3 Baso % (Auto) 0.3 Neut # (Auto) 8.00 H Lymph # (Auto) 2.00 Davidson # (Auto) 1.20 H Eos # (Auto) 0.00 Baso # (Auto) 0.00 Abs Immat Gran (auto) 0.50 H Imm/Tot Granulo (auto) 4.3 Diff Slide Review Acceptable Review D-Dimer Quant (PE/DVT) 0.72 H VBG pH 7.396 VBG pCO2 45 VBG pO2 37.8 VBG HCO3 27 Sodium 137 Potassium 4.0 Chloride 103 Carbon Dioxide 27 Anion Gap 7 BUN 20 Creatinine 0.6 Estimated Creat Clear 37.85 Estimated GFR 93 Glucose 97 Calcium 9.5 Total Bilirubin 0.2 AST 28 ALT 12 Alkaline Phosphatase 101 Total Creatine Kinase Troponin I 0.14 H* 0.13 H* NT-Pro-B Natriuret Pep 254 Total Protein 6.8 Albumin 4.1 Lab Acknowledgement Test Added POC Troponin I 12/18/24 11:17 WBC RBC Hgb Hct MCV MCH MCHC RDW Coeff of Minor Plt Count Neut % (Auto) Lymph % (Auto) Davidson % (Auto) Eos % (Auto) Baso % (Auto) Neut # (Auto) Lymph # (Auto) Davidson # (Auto) Eos # (Auto) Baso # (Auto) Abs Immat Gran (auto) Imm/Tot Granulo (auto) Diff Slide Review D-Dimer Quant (PE/DVT) VBG pH VBG pCO2 VBG pO2 VBG HCO3 Sodium Potassium Chloride Carbon Dioxide Anion Gap BUN Creatinine Estimated Creat Clear Estimated GFR Glucose Calcium Total Bilirubin AST ALT Alkaline Phosphatase Total Creatine Kinase Troponin I NT-Pro-B Natriuret Pep Total Protein Albumin Lab Acknowledgement POC Troponin I 0.06 H Imaging CTA chest: Attestation: I have reviewed the pertinent imaging results. Radiologist's impression: Lines/devices: Right-sided Port-A-Cath with tip terminating in the lower SVC. Lower neck: The visualized thyroid is unremarkable. Cardiovascular: Contrast opacification of the pulmonary arterial tree is adequate. Heart size is normal. Thoracic aorta and pulmonary artery are normal in caliber. No significant atherosclerotic calcifications of the aortic arch. Coronary arterial calcifications. No pulmonary embolism. Mediastinum and lymph nodes: Unremarkable. No pathologic mediastinal or hilar lymphadenopathy by size criteria. Lungs: No focal consolidation. Dependent atelectasis. Linear bandlike opacification of the lung bases bilaterally, likely subsegmental atelectasis and/or scarring. There are several scattered pulmonary micronodules measuring up to 3 mm, for example in the left lower lobe (series number 4, image 94). There are few scattered regions of small subpleural ground-glass opacities bilaterally, unchanged compared to prior exam. Airways: Trachea remains patent and midline. Mild diffuse peribronchial wall thickening. Pleura: No pleural effusions or pneumothorax. Chest wall: Left axillary biopsy clip. Prominent axillary lymph nodes that do not meet size criteria for lymphadenopathy. Bones: No acute osseous abnormalities. Mild degenerative changes of the thoracic spine. Upper abdomen: Lobulated simple appearing cystic lesion within the left hepatic lobe, probably hepatic cysts, incompletely characterized on this examination. No acute findings in the visualized upper abdomen. Impression: No CT evidence of an acute process involving the thorax; specifically, no pulmonary embolism. Discharge Plan Discharge Disposition: Home, Self-Care Date of Admission: 12/18/24 15:08 Attending Provider on Discharge: Isa Cuellar Primary Care Provider: Ashlie Fregoso Condition: Improved Anticipated Discharge Date/Time: 12/19/24 10:59 Discharge Medications: Continued prochlorperazine maleate [Compazine] 5 mg tablet 5 mg PO Q8H PRN (Reason: nausea and vomiting) Qty: 60 1RF aspirin 81 mg tablet,delayed release (DR/EC) 81 mg PO DAILY albuterol sulfate 90 mcg/actuation HFA aerosol inhaler 2 puff inhalation Q6H PRN (Reason: shortness of breath or wheezing) Qty: 8.5 5RF colostrum, bovine 1 ea PO DAILY Gaviscon Extra Strength 160-105 mg tablet,chewable 2 tab PO QID PRN esomeprazole magnesium [Nexium] 20 mg capsule,delayed release(DR/EC) 20 mg PO DAILY ondansetron HCl 4 mg tablet 4 mg PO Q8H PRN (Reason: nausea and vomiting) olanzapine 2.5 mg tablet 2.5 mg PO HS PRN Rx Instructions: Take at bedtime the night of chemotherapy and for 4 days after each chemotherapy dose. dexamethasone 4 mg tablet 8 mg PO QDAY PRN Rx Instructions: take 2 tablets in the morning with food on days 2, 3, and 4 of each cycle. calcium carbonate-vitamin D3 [Calcium with Vitamin D] 600 mg-10 mcg (400 unit) tablet 2 tab PO DAILY amlodipine 2.5 mg tablet 2.5 mg PO DAILY polyethylene glycol 3350 [Miralax] 17 gram powder in packet 17 g PO DAILY PRN Discharge Orders: Discharge Order (Routine); Ordered 12/19/24 Ordered By: Isa Cuellar Patient Education: High Troponin Levels (GEN) Additional Instructions: Contact your Oncology team today to coordinate care with Cardiology prior to your next treatment scheduled for Tuesday Activity Level: No Restrictions Discharge Diet: Regular Follow Up Appointments: Ashlie Fregoso MD [Primary Care Provider, Internal Medicine] [facility]: [facility] Info Instructions
--- NOTE | 2024-12-19 11:50 | PC.NURSE ---
Discharge: VSS, patient pleasant and cooperative. Patient on RA, tolerating a reg, diet. Denies Pain, N/V/SOB. Port removed, tip intact. Patient discharged to home today at 1149 accompanied by spouse. Discharge paperwork signed and belongings sheet signed. Patient verbalized understanding of discharge instructions.
== END 2024-12-19 11:49 | disposition home or self-care (01) ==
LOC: ED 14:56 → MEDSURG 15:09
PROVIDERS: Family Medicine; Physician Assistant; Admitting Provider Family Medicine; Emergency Provider Family Medicine; PCP Internal Medicine; Visit Provider Family Medicine
DX: R79.89 Other specified abnormal findings of blood chemistry (principal); C50.919 Malignant neoplasm of unspecified site of unspecified female breast; Z51.11 Encounter for antineoplastic chemotherapy; R06.09 Other forms of dyspnea; R00.0 Tachycardia, unspecified; E78.5 Hyperlipidemia, unspecified; I10 Essential (primary) hypertension; Z79.82 Long term (current) use of aspirin; K21.9 Gastro-esophageal reflux disease without esophagitis; M85.80 Other specified disorders of bone density and structure, unspecified site; Z90.79 Acquired absence of other genital organ(s); Z90.710 Acquired absence of both cervix and uterus; Z85.828 Personal history of other malignant neoplasm of skin; Z78.9 Other specified health status; Z17.1 Estrogen receptor negative status [ER-]
CPT/HCPCS: 36415; 71275; 80048; 80053; 82550; 82803; 83880; 84484; 85025; 85379; 93005; 93308; 93321; 93325; 94761; 99285; A9270; G0378; J1642; Q9957; Q9967

== ENCOUNTER 2024-12-31 10:00 | Outpatient (RCR) | payer MEDICARE, OTHER, SELFPAY ==
--- NOTE | 2024-07-16 16:34 | ONC.NURNOTE ---
Call to patient to review plan of care: 1. Chemotherapy teach and labs scheduled for 07/18 2. Port placement scheduled for 07/19 3. New start Taxol/Carbo/Pembro scheduled for 07/23 pending PA approval 4. PET/CT scheduled for 08/02
--- NOTE | 2024-07-17 13:30 | URNOTE ---
Request received for authorization for Taxol ([id number]), Carboplatin (J9045), Palonosetron (J2469), Pembrolizumab (J9271). Prior authorization is not required as services are based on medical necessity and follow Medicare guidelines.
[2024-07-18 11:04] LABS: Hematocrit 39.7 % (33.0-51.0); Hemoglobin* 13.1 gm/dL (12.0-16.0); Immature Granulocytes Abs Auto 0.01 K/uL (0.00-0.30); Immature Granulocytes Pct Auto 0.2 %; Mean Corpuscular HGB Conc 33 gm/dL (32-36); Mean Corpuscular Hemoglobin 30 pg (26-34); Mean Corpuscular Volume 90 fL (80-100); RDW Coefficient of Variation % 12.3 % (11.5-15.5); Red Blood Count 4.42 m/uL (4.00-5.20); White Blood Count* 6.66 K/uL (4.50-11.00)
[2024-07-18 11:07] LABS: Lymphocytes Absolute Auto 3.50 K/uL (0.90-2.90); Slide Review Reflex No
[2024-07-18 11:14] LABS: Albumin* 4.5 g/dL (3.3-5.0); Chloride* 104 mmol/L (96-114); Potassium* 4.2 mmol/L (3.6-5.1); Sodium* 140 mmol/L (135-149)
[2024-07-18 11:16] LABS: Creatinine* 0.7 mg/dL (0.5-1.5); Est. Creatinine Clearance* 38.44; Estimated Glomerular Filt Rate 90 ml/min
[2024-07-18 11:17] LABS: Alanine Aminotransferase* 20 U/L (4-35); Alkaline Phosphatase* 75 U/L (40-150); Anion Gap 7 mEq/L (7-15); Aspartate Amino Transferase* 29 U/L (12-35); Bilirubin Total* 0.4 mg/dL (0.1-1.5); Blood Urea Nitrogen* 18 mg/dL (7-30); Calcium* 9.5 mg/dL (8.4-10.6); Carbon Dioxide* 29 mmol/L (20-32); Glucose* 96 mg/dL (60-115); Total Protein* 7.9 g/dL (6.0-8.3)
--- NOTE | 2024-07-18 14:47 | ONC.NURNOTE ---
I met with patient and her spouse for chemotherapy teaching. We reviewed the contents of the chemotherapy binder. We discussed side effects of treatment. Patient instructed how to contact provider during and after clinic hours. Patient verbalizes plan of care.
[2024-07-23 08:35] VITALS: BP 144/86; PULSE 61; RESP 16; TEMP 36.4; O2SAT 98
[2024-07-23] MEDS: dexAMETHasone 20 MG in 0.9 % SODIUM CHLORIDE 100 ml 100 ML 306 MG IVPB (09:38)
[2024-07-23] MEDS: FAMOTIDINE 20 MG, diphenhydrAMINE 50 MG in 0.9 % SODIUM CHLORIDE 100 ml 100 ML 309 MG IVPB (10:11)
[2024-07-23] MEDS: PEMBROLIZUMAB 200 MG, TUBING PRIMARY 1 EACH, In-line 0.2 micron filter set 1 EACH in 0.... 216 MG IVPB (10:38)
[2024-07-23] MEDS: PACLITAXEL IV (11:29)
[2024-07-23] MEDS: MICRON FILTER SET IV (11:29)
[2024-07-23] MEDS: TUBING PRIMARY IV (11:29)
[2024-07-23] MEDS: IN LINE IV (11:29)
[2024-07-23] MEDS: [UNRECOGNIZED DRUG - OTHER] IV (11:29)
[2024-07-23] MEDS: TUBING SECONDARY IVPB (12:38)
[2024-07-23] MEDS: SODIUM CHLORIDE 0.9% IVPB (12:38)
[2024-07-23] MEDS: CARBOPLATIN IVPB (12:38)
[2024-07-23] MEDS: HEPARIN 500 UNIT/5 ML SYRINGE IVF (13:12)
[2024-07-23] MEDS: SODIUM CHLORIDE 0.9 % (FLUSH) 10 ML SYRINGE IVF (13:12)
--- NOTE | 2024-07-25 13:45 | ONC.NURNOTE ---
Call to patient in follow up to her new start chemotherapy. Patient states she is doing really good. She states other than restless sleep, she denies any side effects or concerns. I told her that the steroids were the likely cause of her restless sleep and that should improve each day. Patient encouraged to call with questions or concerns.
[2024-07-30 08:13] VITALS: BP 135/86; PULSE 71; RESP 18; TEMP 36.6; O2SAT 98
[2024-07-30 08:39] LABS: Hematocrit 36.2 % (33.0-51.0); Hemoglobin* 12.1 gm/dL (12.0-16.0); Immature Granulocytes Abs Auto 0.02 K/uL (0.00-0.30); Immature Granulocytes Pct Auto 0.4 %; Lymphocytes Absolute Auto 2.50 K/uL (0.90-2.90); Mean Corpuscular HGB Conc 33 gm/dL (32-36); Mean Corpuscular Hemoglobin 30 pg (26-34); Mean Corpuscular Volume 89 fL (80-100); RDW Coefficient of Variation % 12.0 % (11.5-15.5); Red Blood Count 4.06 m/uL (4.00-5.20); Slide Review Reflex No; White Blood Count* 5.49 K/uL (4.50-11.00)
[2024-07-30 08:54] LABS: Albumin* 4.2 g/dL (3.3-5.0); Chloride* 103 mmol/L (96-114); Sodium* 137 mmol/L (135-149)
[2024-07-30 08:55] LABS: Potassium* 3.9 mmol/L (3.6-5.1)
[2024-07-30 08:57] LABS: Alkaline Phosphatase* 61 U/L (40-150); Anion Gap 7 mEq/L (7-15); Aspartate Amino Transferase* 24 U/L (12-35); Bilirubin Total* 0.3 mg/dL (0.1-1.5); Blood Urea Nitrogen* 10 mg/dL (7-30); Carbon Dioxide* 27 mmol/L (20-32); Creatinine* 0.6 mg/dL (0.5-1.5); Est. Creatinine Clearance* 38.44; Estimated Glomerular Filt Rate 94 ml/min; Total Protein* 7.1 g/dL (6.0-8.3)
[2024-07-30 08:58] LABS: Alanine Aminotransferase* 16 U/L (4-35); Calcium* 9.0 mg/dL (8.4-10.6); Glucose* 95 mg/dL (60-115)
[2024-07-30] MEDS: dexAMETHasone 20 MG in 0.9 % SODIUM CHLORIDE 100 ml 100 ML 306 MG IVPB (09:42)
[2024-07-30] MEDS: SODIUM CHLORIDE 0.9 % (FLUSH) 10 ML SYRINGE IVF ×2 (10:09→12:43)
[2024-07-30] MEDS: FAMOTIDINE 20 MG, diphenhydrAMINE 50 MG in 0.9 % SODIUM CHLORIDE 100 ml 100 ML 309 MG IVPB (10:09)
[2024-07-30] MEDS: 0.9 % SODIUM CHLORIDE 500 ML IV (10:09)
[2024-07-30] MEDS: HEPARIN 500 UNIT/5 ML SYRINGE IVF (10:09)
[2024-07-30] MEDS: TUBING PRIMARY IV (10:45)
[2024-07-30] MEDS: IN LINE IV (10:45)
[2024-07-30] MEDS: PACLITAXEL IV (10:45)
[2024-07-30] MEDS: [UNRECOGNIZED DRUG - OTHER] IV (10:45)
[2024-07-30] MEDS: MICRON FILTER SET IV (10:45)
[2024-07-30] MEDS: SODIUM CHLORIDE 0.9% IVPB (11:58)
[2024-07-30] MEDS: CARBOPLATIN IVPB (11:58)
[2024-07-30] MEDS: TUBING SECONDARY IVPB (11:58)
[2024-08-06 08:55] VITALS: BP 128/75; PULSE 69; RESP 16; TEMP 36.8; O2SAT 99
[2024-08-06 09:32] LABS: Hematocrit 34.8 % (33.0-51.0); Hemoglobin* 11.6 gm/dL (12.0-16.0); Immature Granulocytes Abs Auto 0.01 K/uL (0.00-0.30); Immature Granulocytes Pct Auto 0.2 %; Mean Corpuscular HGB Conc 33 gm/dL (32-36); Mean Corpuscular Hemoglobin 30 pg (26-34); Mean Corpuscular Volume 90 fL (80-100); RDW Coefficient of Variation % 12.3 % (11.5-15.5); Red Blood Count 3.89 m/uL (4.00-5.20); White Blood Count* 5.20 K/uL (4.50-11.00)
[2024-08-06 10:02] LABS: Albumin* 3.9 g/dL (3.3-5.0); Chloride* 106 mmol/L (96-114); Potassium* 4.0 mmol/L (3.6-5.1); Sodium* 138 mmol/L (135-149)
[2024-08-06] MEDS: SODIUM CHLORIDE 0.9 % (FLUSH) 10 ML SYRINGE IVF ×2 (10:02→13:40)
[2024-08-06 10:04] LABS: Anion Gap 9 mEq/L (7-15); Bilirubin Total* 0.2 mg/dL (0.1-1.5); Carbon Dioxide* 23 mmol/L (20-32); Creatinine* 0.5 mg/dL (0.5-1.5); Est. Creatinine Clearance* 38.44; Estimated Glomerular Filt Rate 98 ml/min; Lymphocytes Absolute Auto 3.10 K/uL (0.90-2.90); Slide Review Reflex No
[2024-08-06 10:05] LABS: Alanine Aminotransferase* 14 U/L (4-35); Alkaline Phosphatase* 57 U/L (40-150); Aspartate Amino Transferase* 21 U/L (12-35); Blood Urea Nitrogen* 13 mg/dL (7-30); Calcium* 8.8 mg/dL (8.4-10.6); Glucose* 89 mg/dL (60-115); Total Protein* 6.6 g/dL (6.0-8.3)
[2024-08-06] MEDS: dexAMETHasone 20 MG in 0.9 % SODIUM CHLORIDE 100 ml 100 ML 300 MG IVPB (10:37)
[2024-08-06] MEDS: 0.9 % SODIUM CHLORIDE 500 ML IV (10:37)
[2024-08-06] MEDS: FAMOTIDINE 20 MG, diphenhydrAMINE 50 MG in 0.9 % SODIUM CHLORIDE 100 ml 100 ML 310 MG IVPB (11:01)
[2024-08-06] MEDS: TUBING PRIMARY IV (11:51)
[2024-08-06] MEDS: [UNRECOGNIZED DRUG - OTHER] IV (11:51)
[2024-08-06] MEDS: MICRON FILTER SET IV (11:51)
[2024-08-06] MEDS: IN LINE IV (11:51)
[2024-08-06] MEDS: PACLITAXEL IV (11:51)
[2024-08-06] MEDS: SODIUM CHLORIDE 0.9% IVPB (13:00)
[2024-08-06] MEDS: TUBING SECONDARY IVPB (13:00)
[2024-08-06] MEDS: CARBOPLATIN IVPB (13:00)
[2024-08-06] MEDS: HEPARIN 500 UNIT/5 ML SYRINGE IVF (13:40)
--- NOTE | 2024-08-06 14:45 | ONC.NURNOTE ---
Pt was present at [facility] today for chemo treatment. 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 Paloma states this has been there for ~3 days. Of note, pt has seen derm in the past for a similar appearing rash on her forehead. She has a prescribed cream for that which she did try on her nose/cheeks/chin with no change. RN asked NILESH Walker to assess. This was done. It was determined that pt should continue using her prescribed cream on her forehead as directed. We advised her to get 1% hydrocortisone cream OTC and apply twice daily to her nose, cheeks, chin. If the rash persists, Paloma was advised to call derm and make a follow up appointment. She and her verbalized understanding.
[2024-08-13 08:16] LABS: Hematocrit 34.3 % (33.0-51.0); Hemoglobin* 11.5 gm/dL (12.0-16.0); Immature Granulocytes Abs Auto 0.02 K/uL (0.00-0.30); Immature Granulocytes Pct Auto 0.4 %; Mean Corpuscular HGB Conc 34 gm/dL (32-36); Mean Corpuscular Hemoglobin 30 pg (26-34); Mean Corpuscular Volume 90 fL (80-100); RDW Coefficient of Variation % 12.5 % (11.5-15.5); Red Blood Count 3.83 m/uL (4.00-5.20); White Blood Count* 5.56 K/uL (4.50-11.00)
[2024-08-13 08:30] LABS: Albumin* 4.1 g/dL (3.3-5.0); Chloride* 106 mmol/L (96-114)
[2024-08-13 08:31] LABS: Lymphocytes Absolute Auto 3.40 K/uL (0.90-2.90); Potassium* 3.9 mmol/L (3.6-5.1); Slide Review Reflex No; Sodium* 138 mmol/L (135-149)
[2024-08-13 08:33] LABS: Anion Gap 5 mEq/L (7-15); Aspartate Amino Transferase* 23 U/L (12-35); Bilirubin Total* 0.3 mg/dL (0.1-1.5); Carbon Dioxide* 27 mmol/L (20-32); Creatinine* 0.6 mg/dL (0.5-1.5); Est. Creatinine Clearance* 36.68; Estimated Glomerular Filt Rate 94 ml/min; Total Protein* 6.8 g/dL (6.0-8.3)
[2024-08-13 08:34] LABS: Alanine Aminotransferase* 15 U/L (4-35); Alkaline Phosphatase* 57 U/L (40-150); Blood Urea Nitrogen* 17 mg/dL (7-30); Calcium* 8.9 mg/dL (8.4-10.6); Glucose* 97 mg/dL (60-115)
[2024-08-13] MEDS: PEMBROLIZUMAB 200 MG, TUBING PRIMARY 1 EACH, In-line 0.2 micron filter set 1 EACH in 0.... 216 MG IVPB (10:04)
[2024-08-13] MEDS: dexAMETHasone 20 MG in 0.9 % SODIUM CHLORIDE 100 ml 100 ML 306 MG IVPB (10:40)
[2024-08-13] MEDS: FAMOTIDINE 20 MG, diphenhydrAMINE 25 MG in 0.9 % SODIUM CHLORIDE 100 ml 100 ML 307.5 MG IVPB (11:08)
[2024-08-13] MEDS: PACLITAXEL IV (11:43)
[2024-08-13] MEDS: IN LINE IV (11:43)
[2024-08-13] MEDS: MICRON FILTER SET IV (11:43)
[2024-08-13] MEDS: TUBING PRIMARY IV (11:43)
[2024-08-13] MEDS: [UNRECOGNIZED DRUG - OTHER] IV (11:43)
[2024-08-13] MEDS: CARBOPLATIN IVPB (13:01)
[2024-08-13] MEDS: TUBING SECONDARY IVPB (13:01)
[2024-08-13] MEDS: SODIUM CHLORIDE 0.9% IVPB (13:01)
[2024-08-13] MEDS: HEPARIN 500 UNIT/5 ML SYRINGE IVF (13:53)
[2024-08-13] MEDS: SODIUM CHLORIDE 0.9 % (FLUSH) 10 ML SYRINGE IVF (13:53)
[2024-08-13] MEDS: 0.9 % SODIUM CHLORIDE 500 ML IV (13:54)
[2024-08-20 09:01] LABS: Hematocrit 36.1 % (33.0-51.0); Hemoglobin* 12.0 gm/dL (12.0-16.0); Immature Granulocytes Abs Auto 0.15 K/uL (0.00-0.30); Immature Granulocytes Pct Auto 1.7 %; Mean Corpuscular HGB Conc 33 gm/dL (32-36); Mean Corpuscular Hemoglobin 30 pg (26-34); Mean Corpuscular Volume 90 fL (80-100); RDW Coefficient of Variation % 12.7 % (11.5-15.5); Red Blood Count 4.02 m/uL (4.00-5.20); White Blood Count* 9.08 K/uL (4.50-11.00)
[2024-08-20 09:02] LABS: Lymphocytes Absolute Auto 6.50 K/uL (0.90-2.90)
[2024-08-20 09:14] VITALS: BP 130/84; PULSE 74; RESP 16; TEMP 36.2; O2SAT 97
[2024-08-20 09:17] LABS: Albumin* 4.2 g/dL (3.3-5.0)
[2024-08-20 09:18] LABS: Chloride* 100 mmol/L (96-114); Potassium* 3.9 mmol/L (3.6-5.1); Sodium* 136 mmol/L (135-149)
[2024-08-20 09:20] LABS: Anion Gap 9 mEq/L (7-15); Aspartate Amino Transferase* 16 U/L (12-35); Bilirubin Total* 0.2 mg/dL (0.1-1.5); Carbon Dioxide* 27 mmol/L (20-32); Creatinine* 0.6 mg/dL (0.5-1.5); Est. Creatinine Clearance* 36.68; Estimated Glomerular Filt Rate 94 ml/min
[2024-08-20 09:21] LABS: Alanine Aminotransferase* 14 U/L (4-35); Alkaline Phosphatase* 53 U/L (40-150); Blood Urea Nitrogen* 16 mg/dL (7-30); Calcium* 8.9 mg/dL (8.4-10.6); Glucose* 74 mg/dL (60-115); Total Protein* 6.6 g/dL (6.0-8.3)
[2024-08-20] MEDS: dexAMETHasone 20 MG in 0.9 % SODIUM CHLORIDE 100 ml 100 ML 300 MG IVPB (10:08)
[2024-08-20 10:15] LABS: Slide Review Acceptable Review (Acceptable); Slide Review Reflex Yes
[2024-08-20] MEDS: FAMOTIDINE 20 MG, diphenhydrAMINE 25 MG in 0.9 % SODIUM CHLORIDE 100 ml 100 ML 300 MG IVPB (10:33)
[2024-08-20] MEDS: [UNRECOGNIZED DRUG - OTHER] IV (10:59)
[2024-08-20] MEDS: TUBING PRIMARY IV (10:59)
[2024-08-20] MEDS: MICRON FILTER SET IV (10:59)
[2024-08-20] MEDS: PACLITAXEL IV (10:59)
[2024-08-20] MEDS: IN LINE IV (10:59)
[2024-08-20] MEDS: SODIUM CHLORIDE 0.9% IVPB (12:12)
[2024-08-20] MEDS: TUBING SECONDARY IVPB (12:12)
[2024-08-20] MEDS: CARBOPLATIN IVPB (12:12)
[2024-08-20] MEDS: HEPARIN 500 UNIT/5 ML SYRINGE IVF (12:58)
[2024-08-20] MEDS: SODIUM CHLORIDE 0.9 % (FLUSH) 10 ML SYRINGE IVF (12:58)
[2024-08-27] MEDS: SODIUM CHLORIDE 0.9 % (FLUSH) 10 ML SYRINGE IVF ×3 (10:30→14:31)
[2024-08-27 10:44] LABS: Hematocrit 35.4 % (33.0-51.0); Hemoglobin* 11.7 gm/dL (12.0-16.0); Immature Granulocytes Abs Auto 0.04 K/uL (0.00-0.30); Immature Granulocytes Pct Auto 0.7 %; Mean Corpuscular HGB Conc 33 gm/dL (32-36); Mean Corpuscular Hemoglobin 30 pg (26-34); Mean Corpuscular Volume 91 fL (80-100); RDW Coefficient of Variation % 13.5 % (11.5-15.5); Red Blood Count 3.90 m/uL (4.00-5.20); White Blood Count* 6.05 K/uL (4.50-11.00)
[2024-08-27 10:51] LABS: Albumin* 4.0 g/dL (3.3-5.0); Chloride* 104 mmol/L (96-114); Sodium* 137 mmol/L (135-149)
[2024-08-27 10:52] LABS: Potassium* 4.3 mmol/L (3.6-5.1)
[2024-08-27 10:54] LABS: Alanine Aminotransferase* 17 U/L (4-35); Alkaline Phosphatase* 58 U/L (40-150); Anion Gap 6 mEq/L (7-15); Aspartate Amino Transferase* 23 U/L (12-35); Bilirubin Total* 0.3 mg/dL (0.1-1.5); Blood Urea Nitrogen* 14 mg/dL (7-30); Carbon Dioxide* 27 mmol/L (20-32); Creatinine* 0.6 mg/dL (0.5-1.5); Est. Creatinine Clearance* 36.12; Estimated Glomerular Filt Rate 93 ml/min; Glucose* 104 mg/dL (60-115); Total Protein* 6.6 g/dL (6.0-8.3)
[2024-08-27 10:55] LABS: Calcium* 8.8 mg/dL (8.4-10.6)
[2024-08-27 10:56] LABS: Lymphocytes Absolute Auto 3.30 K/uL (0.90-2.90); Slide Review Reflex No
[2024-08-27] MEDS: dexAMETHasone 20 MG in 0.9 % SODIUM CHLORIDE 100 ml 100 ML 306 MG IVPB (11:49)
[2024-08-27] MEDS: 0.9 % SODIUM CHLORIDE 500 ML IV (11:55)
[2024-08-27] MEDS: FAMOTIDINE 20 MG, diphenhydrAMINE 25 MG in 0.9 % SODIUM CHLORIDE 100 ml 100 ML 309 MG IVPB (12:16)
[2024-08-27] MEDS: TUBING PRIMARY IV (12:46)
[2024-08-27] MEDS: MICRON FILTER SET IV (12:46)
[2024-08-27] MEDS: PACLITAXEL IV (12:46)
[2024-08-27] MEDS: [UNRECOGNIZED DRUG - OTHER] IV (12:46)
[2024-08-27] MEDS: IN LINE IV (12:46)
[2024-08-27] MEDS: SODIUM CHLORIDE 0.9% IVPB (13:54)
[2024-08-27] MEDS: CARBOPLATIN IVPB (13:54)
[2024-08-27] MEDS: TUBING SECONDARY IVPB (13:54)
[2024-08-27] MEDS: HEPARIN 500 UNIT/5 ML SYRINGE IVF (14:31)
[2024-09-03 08:18] VITALS: BP 149/84; PULSE 67; RESP 16; TEMP 35.8; O2SAT 98
[2024-09-03 08:53] LABS: Hematocrit 35.0 % (33.0-51.0); Hemoglobin* 11.7 gm/dL (12.0-16.0); Immature Granulocytes Pct Auto 0.7 %; Lymphocytes Absolute Auto 2.50 K/uL (0.90-2.90); Mean Corpuscular HGB Conc 33 gm/dL (32-36); Mean Corpuscular Hemoglobin 30 pg (26-34); Mean Corpuscular Volume 90 fL (80-100); RDW Coefficient of Variation % 13.5 % (11.5-15.5); Red Blood Count 3.87 m/uL (4.00-5.20); White Blood Count* 4.41 K/uL (4.50-11.00)
[2024-09-03 08:58] LABS: Immature Granulocytes Abs Auto 0.00 K/uL (0.00-0.30); Slide Review Reflex No
[2024-09-03 09:20] LABS: Chloride* 102 mmol/L (96-114)
[2024-09-03 09:21] LABS: Albumin* 4.0 g/dL (3.3-5.0); Potassium* 3.9 mmol/L (3.6-5.1); Sodium* 136 mmol/L (135-149)
[2024-09-03 09:24] LABS: Alanine Aminotransferase* 15 U/L (4-35); Alkaline Phosphatase* 58 U/L (40-150); Anion Gap 5 mEq/L (7-15); Aspartate Amino Transferase* 22 U/L (12-35); Bilirubin Total* 0.4 mg/dL (0.1-1.5); Blood Urea Nitrogen* 14 mg/dL (7-30); Calcium* 8.8 mg/dL (8.4-10.6); Carbon Dioxide* 29 mmol/L (20-32); Creatinine* 0.7 mg/dL (0.5-1.5); Est. Creatinine Clearance* 36.12; Estimated Glomerular Filt Rate 90 ml/min; Glucose* 90 mg/dL (60-115); Total Protein* 6.8 g/dL (6.0-8.3)
[2024-09-03] MEDS: SODIUM CHLORIDE 0.9 % (FLUSH) 10 ML SYRINGE IVF ×2 (10:47→13:55)
[2024-09-03] MEDS: PEMBROLIZUMAB 200 MG, TUBING PRIMARY 1 EACH, In-line 0.2 micron filter set 1 EACH in 0.... 216 MG IVPB (10:47)
[2024-09-03] MEDS: dexAMETHasone 20 MG in 0.9 % SODIUM CHLORIDE 100 ml 100 ML 306 MG IVPB (11:19)
[2024-09-03] MEDS: FAMOTIDINE 20 MG, diphenhydrAMINE 25 MG in 0.9 % SODIUM CHLORIDE 100 ml 100 ML 308 MG IVPB (11:41)
[2024-09-03] MEDS: IN LINE IV (12:13)
[2024-09-03] MEDS: PACLITAXEL IV (12:13)
[2024-09-03] MEDS: MICRON FILTER SET IV (12:13)
[2024-09-03] MEDS: TUBING PRIMARY IV (12:13)
[2024-09-03] MEDS: [UNRECOGNIZED DRUG - OTHER] IV (12:13)
[2024-09-03] MEDS: CARBOPLATIN IVPB (13:23)
[2024-09-03] MEDS: TUBING SECONDARY IVPB (13:23)
[2024-09-03] MEDS: SODIUM CHLORIDE 0.9% IVPB (13:23)
[2024-09-03] MEDS: HEPARIN 500 UNIT/5 ML SYRINGE IVF (13:55)
[2024-09-10 08:05] VITALS: BP 131/84; PULSE 80; RESP 16; TEMP 35.9; O2SAT 97
[2024-09-10] MEDS: SODIUM CHLORIDE 0.9 % (FLUSH) 10 ML SYRINGE IVF ×2 (08:10→12:23)
[2024-09-10 08:26] LABS: Hematocrit 33.5 % (33.0-51.0); Hemoglobin* 11.1 gm/dL (12.0-16.0); Immature Granulocytes Abs Auto 0.03 K/uL (0.00-0.30); Immature Granulocytes Pct Auto 0.6 %; Mean Corpuscular HGB Conc 33 gm/dL (32-36); Mean Corpuscular Hemoglobin 30 pg (26-34); Mean Corpuscular Volume 91 fL (80-100); RDW Coefficient of Variation % 13.7 % (11.5-15.5); Red Blood Count 3.68 m/uL (4.00-5.20); White Blood Count* 5.13 K/uL (4.50-11.00)
[2024-09-10 08:33] LABS: Lymphocytes Absolute Auto 3.10 K/uL (0.90-2.90); Slide Review Reflex No
[2024-09-10 08:47] LABS: Albumin* 4.1 g/dL (3.3-5.0); Chloride* 103 mmol/L (96-114); Sodium* 137 mmol/L (135-149)
[2024-09-10 08:48] LABS: Potassium* 3.8 mmol/L (3.6-5.1)
[2024-09-10 08:50] LABS: Alanine Aminotransferase* 15 U/L (4-35); Alkaline Phosphatase* 52 U/L (40-150); Anion Gap 6 mEq/L (7-15); Aspartate Amino Transferase* 22 U/L (12-35); Bilirubin Total* 0.3 mg/dL (0.1-1.5); Blood Urea Nitrogen* 15 mg/dL (7-30); Calcium* 8.9 mg/dL (8.4-10.6); Carbon Dioxide* 28 mmol/L (20-32); Creatinine* 0.6 mg/dL (0.5-1.5); Est. Creatinine Clearance* 36.12; Estimated Glomerular Filt Rate 93 ml/min; Glucose* 91 mg/dL (60-115); Total Protein* 6.8 g/dL (6.0-8.3)
[2024-09-10] MEDS: FAMOTIDINE 20 MG, diphenhydrAMINE 25 MG in 0.9 % SODIUM CHLORIDE 100 ml 100 ML 309 MG IVPB (09:42)
[2024-09-10] MEDS: dexAMETHasone 20 MG in 0.9 % SODIUM CHLORIDE 100 ml 100 ML 306 MG IVPB (10:06)
[2024-09-10] MEDS: PACLITAXEL IV (10:35)
[2024-09-10] MEDS: IN LINE IV (10:35)
[2024-09-10] MEDS: TUBING PRIMARY IV (10:35)
[2024-09-10] MEDS: [UNRECOGNIZED DRUG - OTHER] IV (10:35)
[2024-09-10] MEDS: MICRON FILTER SET IV (10:35)
[2024-09-10] MEDS: SODIUM CHLORIDE 0.9% IVPB (11:43)
[2024-09-10] MEDS: CARBOPLATIN IVPB (11:43)
[2024-09-10] MEDS: TUBING SECONDARY IVPB (11:43)
[2024-09-10] MEDS: HEPARIN 500 UNIT/5 ML SYRINGE IVF (12:23)
[2024-09-17 10:48] LABS: Albumin* 4.1 g/dL (3.3-5.0); Chloride* 101 mmol/L (96-114); Sodium* 136 mmol/L (135-149)
[2024-09-17 10:49] LABS: Potassium* 3.9 mmol/L (3.6-5.1)
[2024-09-17 10:51] LABS: Alanine Aminotransferase* 15 U/L (4-35); Alkaline Phosphatase* 48 U/L (40-150); Anion Gap 8 mEq/L (7-15); Aspartate Amino Transferase* 24 U/L (12-35); Bilirubin Total* 0.4 mg/dL (0.1-1.5); Blood Urea Nitrogen* 13 mg/dL (7-30); Calcium* 9.0 mg/dL (8.4-10.6); Carbon Dioxide* 27 mmol/L (20-32); Creatinine* 0.6 mg/dL (0.5-1.5); Est. Creatinine Clearance* 36.12; Estimated Glomerular Filt Rate 93 ml/min; Glucose* 97 mg/dL (60-115); Total Protein* 6.8 g/dL (6.0-8.3)
[2024-09-17 10:52] LABS: Hematocrit 32.7 % (33.0-51.0); Hemoglobin* 11.0 gm/dL (12.0-16.0); Immature Granulocytes Abs Auto 0.02 K/uL (0.00-0.30); Immature Granulocytes Pct Auto 0.4 %; Mean Corpuscular HGB Conc 34 gm/dL (32-36); Mean Corpuscular Hemoglobin 31 pg (26-34); Mean Corpuscular Volume 91 fL (80-100); RDW Coefficient of Variation % 14.1 % (11.5-15.5); Red Blood Count 3.60 m/uL (4.00-5.20); White Blood Count* 4.86 K/uL (4.50-11.00)
[2024-09-17 10:54] VITALS: BP 127/79; PULSE 80; RESP 16; TEMP 36.1; O2SAT 96
[2024-09-17 11:00] LABS: Lymphocytes Absolute Auto 2.80 K/uL (0.90-2.90); Slide Review Reflex No
[2024-09-17] MEDS: SODIUM CHLORIDE 0.9 % (FLUSH) 10 ML SYRINGE IVF ×2 (11:28→14:20)
[2024-09-17] MEDS: dexAMETHasone 20 MG in 0.9 % SODIUM CHLORIDE 100 ml 100 ML 306 MG IVPB (11:49)
[2024-09-17] MEDS: FAMOTIDINE 20 MG, diphenhydrAMINE 25 MG in 0.9 % SODIUM CHLORIDE 100 ml 100 ML 309 MG IVPB (12:12)
[2024-09-17] MEDS: TUBING PRIMARY IV (12:38)
[2024-09-17] MEDS: IN LINE IV (12:38)
[2024-09-17] MEDS: MICRON FILTER SET IV (12:38)
[2024-09-17] MEDS: PACLITAXEL IV (12:38)
[2024-09-17] MEDS: [UNRECOGNIZED DRUG - OTHER] IV (12:38)
[2024-09-17] MEDS: CARBOPLATIN IVPB (13:46)
[2024-09-17] MEDS: TUBING SECONDARY IVPB (13:46)
[2024-09-17] MEDS: SODIUM CHLORIDE 0.9% IVPB (13:46)
[2024-09-17] MEDS: HEPARIN 500 UNIT/5 ML SYRINGE IVF (14:20)
[2024-09-24 08:37] LABS: Hematocrit 33.2 % (33.0-51.0); Hemoglobin* 11.1 gm/dL (12.0-16.0); Immature Granulocytes Abs Auto 0.02 K/uL (0.00-0.30); Immature Granulocytes Pct Auto 0.4 %; Mean Corpuscular HGB Conc 33 gm/dL (32-36); Mean Corpuscular Hemoglobin 31 pg (26-34); Mean Corpuscular Volume 91 fL (80-100); RDW Coefficient of Variation % 14.4 % (11.5-15.5); Red Blood Count 3.64 m/uL (4.00-5.20); White Blood Count* 5.10 K/uL (4.50-11.00)
[2024-09-24 08:39] LABS: Lymphocytes Absolute Auto 3.40 K/uL (0.90-2.90); Slide Review Reflex No
[2024-09-24] MEDS: SODIUM CHLORIDE 0.9 % (FLUSH) 10 ML SYRINGE IVF ×2 (08:40→14:21)
[2024-09-24 08:51] LABS: Albumin* 4.3 g/dL (3.3-5.0); Chloride* 103 mmol/L (96-114); Potassium* 4.0 mmol/L (3.6-5.1); Sodium* 137 mmol/L (135-149)
[2024-09-24 08:54] LABS: Alanine Aminotransferase* 17 U/L (4-35); Alkaline Phosphatase* 55 U/L (40-150); Anion Gap 7 mEq/L (7-15); Aspartate Amino Transferase* 31 U/L (12-35); Bilirubin Total* 0.5 mg/dL (0.1-1.5); Blood Urea Nitrogen* 10 mg/dL (7-30); Carbon Dioxide* 27 mmol/L (20-32); Creatinine* 0.6 mg/dL (0.5-1.5); Est. Creatinine Clearance* 36.12; Estimated Glomerular Filt Rate 93 ml/min; Total Protein* 6.9 g/dL (6.0-8.3)
[2024-09-24 08:55] LABS: Calcium* 9.1 mg/dL (8.4-10.6); Glucose* 101 mg/dL (60-115)
[2024-09-24] MEDS: dexAMETHasone 20 MG in 0.9 % SODIUM CHLORIDE 100 ml 100 ML 306 MG IVPB (10:50)
[2024-09-24] MEDS: PEMBROLIZUMAB 200 MG, TUBING PRIMARY 1 EACH, In-line 0.2 micron filter set 1 EACH in 0.... 216 MG IVPB (11:22)
[2024-09-24] MEDS: HEPARIN 500 UNIT/5 ML SYRINGE IVF ×2 (11:34→14:21)
[2024-09-24] MEDS: FAMOTIDINE 20 MG, diphenhydrAMINE 25 MG in 0.9 % SODIUM CHLORIDE 100 ml 100 ML 307.5 MG IVPB (12:02)
[2024-09-24] MEDS: IN LINE IV (12:33)
[2024-09-24] MEDS: PACLITAXEL IV (12:33)
[2024-09-24] MEDS: MICRON FILTER SET IV (12:33)
[2024-09-24] MEDS: [UNRECOGNIZED DRUG - OTHER] IV (12:33)
[2024-09-24] MEDS: TUBING PRIMARY IV (12:33)
[2024-09-24] MEDS: TUBING SECONDARY IVPB (13:45)
[2024-09-24] MEDS: CARBOPLATIN IVPB (13:45)
[2024-09-24] MEDS: SODIUM CHLORIDE 0.9% IVPB (13:45)
[2024-10-01 08:12] VITALS: BP 107/74; PULSE 83; RESP 17; TEMP 36.7; O2SAT 96
[2024-10-01] MEDS: SODIUM CHLORIDE 0.9 % (FLUSH) 10 ML SYRINGE IVF ×2 (08:30→12:35)
[2024-10-01 08:43] LABS: Hematocrit 31.2 % (33.0-51.0); Hemoglobin* 10.4 gm/dL (12.0-16.0); Immature Granulocytes Pct Auto 1.0 %; Mean Corpuscular HGB Conc 33 gm/dL (32-36); Mean Corpuscular Hemoglobin 31 pg (26-34); Mean Corpuscular Volume 93 fL (80-100); RDW Coefficient of Variation % 14.6 % (11.5-15.5); Red Blood Count 3.35 m/uL (4.00-5.20); White Blood Count* 4.18 K/uL (4.50-11.00)
[2024-10-01 08:59] LABS: Immature Granulocytes Abs Auto 0.00 K/uL (0.00-0.30); Lymphocytes Absolute Auto 2.40 K/uL (0.90-2.90); Slide Review Reflex No
[2024-10-01 09:00] LABS: Chloride* 105 mmol/L (96-114)
[2024-10-01 09:01] LABS: Albumin* 4.1 g/dL (3.3-5.0); Potassium* 3.6 mmol/L (3.6-5.1); Sodium* 139 mmol/L (135-149)
[2024-10-01 09:03] LABS: Alanine Aminotransferase* 19 U/L (4-35); Anion Gap 6 mEq/L (7-15); Aspartate Amino Transferase* 28 U/L (12-35); Blood Urea Nitrogen* 19 mg/dL (7-30); Carbon Dioxide* 28 mmol/L (20-32); Creatinine* 0.6 mg/dL (0.5-1.5); Est. Creatinine Clearance* 37.85; Estimated Glomerular Filt Rate 93 ml/min
[2024-10-01 09:04] LABS: Alkaline Phosphatase* 48 U/L (40-150); Bilirubin Total* 0.3 mg/dL (0.1-1.5); Calcium* 8.9 mg/dL (8.4-10.6); Glucose* 109 mg/dL (60-115); Total Protein* 6.5 g/dL (6.0-8.3)
[2024-10-01] MEDS: dexAMETHasone 20 MG in 0.9 % SODIUM CHLORIDE 100 ml 100 ML 306 MG IVPB (09:48)
[2024-10-01] MEDS: FAMOTIDINE 20 MG, diphenhydrAMINE 25 MG in 0.9 % SODIUM CHLORIDE 100 ml 100 ML 309 MG IVPB (10:14)
[2024-10-01] MEDS: IN LINE IV (10:50)
[2024-10-01] MEDS: TUBING PRIMARY IV (10:50)
[2024-10-01] MEDS: PACLITAXEL IV (10:50)
[2024-10-01] MEDS: MICRON FILTER SET IV (10:50)
[2024-10-01] MEDS: [UNRECOGNIZED DRUG - OTHER] IV (10:50)
[2024-10-01] MEDS: SODIUM CHLORIDE 0.9% IVPB (11:58)
[2024-10-01] MEDS: TUBING SECONDARY IVPB (11:58)
[2024-10-01] MEDS: CARBOPLATIN IVPB (11:58)
[2024-10-01] MEDS: HEPARIN 500 UNIT/5 ML SYRINGE IVF (12:35)
--- NOTE | 2024-10-03 11:55 | URNOTE ---
Prior authorization is not requied for Pembrolizumab(J9217). Doxorubicin (J9000), Cyclophosphamide (J9070), Palonosetron (J2469), Fosaprepitant (J1453) and Pegfilgrastim-jmdb (Q5108). Services are based on medical necessity and follow medicare guidelines.
[2024-10-08 08:44] VITALS: BP 121/80; PULSE 83; RESP 20; TEMP 34.8; O2SAT 97
[2024-10-08 08:48] LABS: Hematocrit 31.1 % (33.0-51.0); Hemoglobin* 10.3 gm/dL (12.0-16.0); Immature Granulocytes Abs Auto 0.05 K/uL (0.00-0.30); Immature Granulocytes Pct Auto 1.0 %; Mean Corpuscular HGB Conc 33 gm/dL (32-36); Mean Corpuscular Hemoglobin 31 pg (26-34); Mean Corpuscular Volume 94 fL (80-100); RDW Coefficient of Variation % 15.5 % (11.5-15.5); Red Blood Count 3.30 m/uL (4.00-5.20); White Blood Count* 4.81 K/uL (4.50-11.00)
[2024-10-08 08:50] LABS: Lymphocytes Absolute Auto 2.70 K/uL (0.90-2.90); Slide Review Reflex No
[2024-10-08 09:00] LABS: Albumin* 4.0 g/dL (3.3-5.0); Chloride* 107 mmol/L (96-114); Potassium* 3.7 mmol/L (3.6-5.1); Sodium* 138 mmol/L (135-149)
[2024-10-08 09:02] LABS: Anion Gap 4 mEq/L (7-15); Bilirubin Total* 0.3 mg/dL (0.1-1.5); Blood Urea Nitrogen* 17 mg/dL (7-30); Carbon Dioxide* 27 mmol/L (20-32); Creatinine* 0.5 mg/dL (0.5-1.5); Est. Creatinine Clearance* 37.85; Estimated Glomerular Filt Rate 97 ml/min
[2024-10-08 09:03] LABS: Alanine Aminotransferase* 13 U/L (4-35); Alkaline Phosphatase* 54 U/L (40-150); Aspartate Amino Transferase* 20 U/L (12-35); Calcium* 9.1 mg/dL (8.4-10.6); Glucose* 100 mg/dL (60-115); Total Protein* 6.6 g/dL (6.0-8.3)
[2024-10-08] MEDS: SODIUM CHLORIDE 0.9 % (FLUSH) 10 ML SYRINGE IVF (09:35)
[2024-10-08] MEDS: dexAMETHasone 20 MG in 0.9 % SODIUM CHLORIDE 100 ml 100 ML 306 MG IVPB (09:53)
[2024-10-08] MEDS: FAMOTIDINE 20 MG, diphenhydrAMINE 25 MG in 0.9 % SODIUM CHLORIDE 100 ml 100 ML 309 MG IVPB (10:18)
[2024-10-08] MEDS: [UNRECOGNIZED DRUG - OTHER] IV (10:46)
[2024-10-08] MEDS: IN LINE IV (10:46)
[2024-10-08] MEDS: TUBING PRIMARY IV (10:46)
[2024-10-08] MEDS: MICRON FILTER SET IV (10:46)
[2024-10-08] MEDS: PACLITAXEL IV (10:46)
[2024-10-08] MEDS: TUBING SECONDARY IVPB (11:55)
[2024-10-08] MEDS: SODIUM CHLORIDE 0.9% IVPB (11:55)
[2024-10-08] MEDS: CARBOPLATIN IVPB (11:55)
[2024-10-15 09:52] LABS: Hematocrit 31.9 % (33.0-51.0); Hemoglobin* 10.6 gm/dL (12.0-16.0); Immature Granulocytes Abs Auto 0.05 K/uL (0.00-0.30); Immature Granulocytes Pct Auto 0.9 %; Lymphocytes Absolute Auto 3.00 K/uL (0.90-2.90); Mean Corpuscular HGB Conc 33 gm/dL (32-36); Mean Corpuscular Hemoglobin 31 pg (26-34); Mean Corpuscular Volume 94 fL (80-100); RDW Coefficient of Variation % 15.4 % (11.5-15.5); Red Blood Count 3.41 m/uL (4.00-5.20); White Blood Count* 5.33 K/uL (4.50-11.00)
[2024-10-15 10:00] LABS: Slide Review Reflex No
[2024-10-15 10:13] LABS: Albumin* 4.3 g/dL (3.3-5.0); Chloride* 104 mmol/L (96-114)
[2024-10-15 10:14] LABS: Potassium* 3.8 mmol/L (3.6-5.1); Sodium* 137 mmol/L (135-149)
[2024-10-15 10:16] LABS: Alanine Aminotransferase* 17 U/L (4-35); Anion Gap 5 mEq/L (7-15); Aspartate Amino Transferase* 30 U/L (12-35); Bilirubin Total* 0.4 mg/dL (0.1-1.5); Blood Urea Nitrogen* 21 mg/dL (7-30); Carbon Dioxide* 28 mmol/L (20-32); Creatinine* 0.6 mg/dL (0.5-1.5); Est. Creatinine Clearance* 37.85; Estimated Glomerular Filt Rate 93 ml/min; Total Protein* 7.0 g/dL (6.0-8.3)
[2024-10-15 10:17] LABS: Alkaline Phosphatase* 54 U/L (40-150); Calcium* 9.2 mg/dL (8.4-10.6); Glucose* 91 mg/dL (60-115)
[2024-10-15] MEDS: PEMBROLIZUMAB 200 MG, TUBING PRIMARY 1 EACH, In-line 0.2 micron filter set 1 EACH in 0.... 216 MG IVPB (12:17)
[2024-10-15] MEDS: DEXAMETHASONE 10 MG/ML PF IVP (12:50)
[2024-10-15] MEDS: FOSAPREPITANT 150 MG inj 150 MG in 0.9 % SODIUM CHLORIDE 250 ml 250 ML 510 MG IVPB (12:54)
[2024-10-15] MEDS: DOXOrubicin 2 MG/ML inj 105 MG IVP (13:35)
[2024-10-15] MEDS: CYCLOPHOSPHAMIDE IV (13:51)
[2024-10-15] MEDS: [UNRECOGNIZED DRUG - OTHER] IV (13:51)
[2024-10-15] MEDS: TUBING SECONDARY IV (13:51)
[2024-10-15] MEDS: SODIUM CHLORIDE 0.9 % (FLUSH) 10 ML SYRINGE IVF (15:00)
[2024-10-15] MEDS: HEPARIN 500 UNIT/5 ML SYRINGE IVF (15:00)
[2024-10-16 14:30] VITALS: BP 124/63; PULSE 79; RESP 20; TEMP 35.8; O2SAT 94
[2024-10-16] MEDS: PEGFILGRASTIM-JMDB (Fulphila) 6 MG/0.6 ML SUBCUT (14:45)
--- NOTE | 2024-10-16 14:55 | ONC.NURNOTE ---
Pt here day after 1st AC for Fulphila injection; tolerated well. Pt denies nausea; is taking antiemetics at home per recommendations on pt's calendar. She notes she slept well overnight and slept in until 0830 today. Questions answered;home routines reinforced. Pt will call with questions.
--- NOTE | 2024-10-30 12:47 | ONC.NURNOTE ---
Spoke to pt today to review scheduling and she notes side effects she's been having with Keytruda - A/C 15 days ago, C1. Heart burn - Pt notes she was having heart burn after eating and in the night most days after chemo. She has been using Gaviscon max OTC dosing, adjusted her diet and endured the pain. She has lost 12 lbs. She has omitted onions and garlic from her diet, which helps. She is tolerating eggs, potatoes, melon; encouraged proteins. She is now using Fairlife milk (is lactose intolerant). She will increase her intake of almond butter and lean meats like chicken/turkey; she is also taking protein shakes. She has several food allergies she navigates. Discussed trying a preventative antacid like Pepcid or a PPI. She notes she was been on both in past years for reflux issues. She tolerated Tagamet well and will try adding that. Chest pressure and SOB with exertion - Pt's baseline prior to chemotx was to walk 3 miles/daily. While on weekly Taxol/Carbo with Keytruda x 12 wks she was walking 1-1.5 miles/day d/t fatigue. Now she notices since [place]-AC with walking a mile, even walking slowly, she is too short of breath to speak and had chest pressure and tightness. She notes this has improved in the last few days. She denies chest pain/tightness or SOB at rest or in other activities; it is just while on these daily walks. Rash -- Pt notes she has hives on bilateral arms and now legs overnight. This rash is consistent with what she had during her weekly Taxol/Carbo with Keytruda x 12 wks; itchy, non-raised and uses mild moisturizing lotion to manage it. Last night she developed raised hives like mosquito bites on bilat lower legs that woke her up overnight. It looks similar to her rash on her arms. Reviewed with Darya Brandon APRN; pt instructed to come into [facility] to see Darya in a provider visit with labs. Pt verbalizes understanding and will come at 1330.
[2024-10-30 14:02] LABS: Hematocrit 31.3 % (33.0-51.0); Hemoglobin* 10.4 gm/dL (12.0-16.0); Immature Granulocytes Pct Auto 8.0 %; Mean Corpuscular HGB Conc 33 gm/dL (32-36); Mean Corpuscular Hemoglobin 32 pg (26-34); Mean Corpuscular Volume 95 fL (80-100); RDW Coefficient of Variation % 16.1 % (11.5-15.5); Red Blood Count 3.28 m/uL (4.00-5.20); White Blood Count* 18.89 K/uL (4.50-11.00)
[2024-10-30 14:03] LABS: Immature Granulocytes Abs Auto 1.50 K/uL (0.00-0.30); Lymphocytes Absolute Auto 3.80 K/uL (0.90-2.90); Slide Review Reflex No
[2024-10-30 14:10] LABS: Albumin* 4.4 g/dL (3.3-5.0); Chloride* 104 mmol/L (96-114)
[2024-10-30 14:11] LABS: Potassium* 3.6 mmol/L (3.6-5.1); Sodium* 140 mmol/L (135-149)
[2024-10-30 14:13] LABS: Alanine Aminotransferase* 14 U/L (4-35); Anion Gap 9 mEq/L (7-15); Aspartate Amino Transferase* 33 U/L (12-35); Blood Urea Nitrogen* 17 mg/dL (7-30); Carbon Dioxide* 27 mmol/L (20-32); Creatinine* 0.6 mg/dL (0.5-1.5); Est. Creatinine Clearance* 37.85; Estimated Glomerular Filt Rate 93 ml/min
[2024-10-30 14:14] LABS: Alkaline Phosphatase* 80 U/L (40-150); Bilirubin Total* 0.3 mg/dL (0.1-1.5); Calcium* 9.5 mg/dL (8.4-10.6); Glucose* 124 mg/dL (60-115); Total Protein* 7.1 g/dL (6.0-8.3)
[2024-11-05 09:13] LABS: Hematocrit 31.3 % (33.0-51.0); Hemoglobin* 10.1 gm/dL (12.0-16.0); Immature Granulocytes Abs Auto 0.25 K/uL (0.00-0.30); Immature Granulocytes Pct Auto 2.5 %; Lymphocytes Absolute Auto 3.03 K/uL (0.90-2.90); Mean Corpuscular HGB Conc 32 gm/dL (32-36); Mean Corpuscular Hemoglobin 31 pg (26-34); Mean Corpuscular Volume 97 fL (80-100); RDW Coefficient of Variation % 15.8 % (11.5-15.5); Red Blood Count 3.23 m/uL (4.00-5.20); White Blood Count* 9.84 K/uL (4.50-11.00)
[2024-11-05 09:17] LABS: Slide Review Reflex No
[2024-11-05 09:28] LABS: Albumin* 4.0 g/dL (3.3-5.0); Chloride* 107 mmol/L (96-114)
[2024-11-05 09:29] LABS: Potassium* 3.5 mmol/L (3.6-5.1); Sodium* 139 mmol/L (135-149)
[2024-11-05 09:31] LABS: Anion Gap 6 mEq/L (7-15); Bilirubin Total* 0.2 mg/dL (0.1-1.5); Blood Urea Nitrogen* 18 mg/dL (7-30); Carbon Dioxide* 26 mmol/L (20-32); Creatinine* 0.6 mg/dL (0.5-1.5); Est. Creatinine Clearance* 37.85; Estimated Glomerular Filt Rate 93 ml/min
[2024-11-05 09:32] LABS: Alanine Aminotransferase* 12 U/L (4-35); Alkaline Phosphatase* 59 U/L (40-150); Aspartate Amino Transferase* 23 U/L (12-35); Calcium* 9.1 mg/dL (8.4-10.6); Glucose* 112 mg/dL (60-115); Total Protein* 6.6 g/dL (6.0-8.3)
[2024-11-05] MEDS: SODIUM CHLORIDE 0.9 % (FLUSH) 10 ML SYRINGE IVF (11:14)
[2024-11-05] MEDS: HEPARIN 500 UNIT/5 ML SYRINGE IVF (11:14)
[2024-11-12 13:28] LABS: Albumin* 4.2 g/dL (3.3-5.0); Chloride* 104 mmol/L (96-114); Potassium* 4.2 mmol/L (3.6-5.1); Sodium* 138 mmol/L (135-149)
[2024-11-12 13:30] LABS: Blood Urea Nitrogen* 19 mg/dL (7-30); Creatinine* 0.7 mg/dL (0.5-1.5); Est. Creatinine Clearance* 37.85; Estimated Glomerular Filt Rate 90 ml/min
[2024-11-12 13:31] LABS: Alanine Aminotransferase* 14 U/L (4-35); Alkaline Phosphatase* 64 U/L (40-150); Anion Gap 7 mEq/L (7-15); Aspartate Amino Transferase* 30 U/L (12-35); Bilirubin Total* 0.4 mg/dL (0.1-1.5); Calcium* 9.0 mg/dL (8.4-10.6); Carbon Dioxide* 27 mmol/L (20-32); Glucose* 91 mg/dL (60-115); Total Protein* 6.7 g/dL (6.0-8.3)
[2024-11-12 14:20] LABS: Hematocrit 33.3 % (33.0-51.0); Hemoglobin* 10.8 gm/dL (12.0-16.0); Immature Granulocytes Abs Auto 0.05 K/uL (0.00-0.30); Immature Granulocytes Pct Auto 0.5 %; Lymphocytes Absolute Auto 3.22 K/uL (0.90-2.90); Mean Corpuscular HGB Conc 32 gm/dL (32-36); Mean Corpuscular Hemoglobin 32 pg (26-34); Mean Corpuscular Volume 97 fL (80-100); RDW Coefficient of Variation % 14.9 % (11.5-15.5); Red Blood Count 3.42 m/uL (4.00-5.20); White Blood Count* 9.40 K/uL (4.50-11.00)
[2024-11-12 14:23] LABS: Slide Review Reflex No
[2024-11-13 08:20] VITALS: BP 104/70; PULSE 96; RESP 18; TEMP 36.3; O2SAT 96
[2024-11-13] MEDS: SODIUM CHLORIDE 0.9 % (FLUSH) 10 ML SYRINGE IVF ×2 (09:02→11:43)
[2024-11-13] MEDS: PEMBROLIZUMAB 200 MG, TUBING PRIMARY 1 EACH, In-line 0.2 micron filter set 1 EACH in 0.... 216 MG IVPB (09:02)
[2024-11-13] MEDS: DEXAMETHASONE 10 MG/ML PF IVP (09:41)
[2024-11-13] MEDS: FOSAPREPITANT 150 MG inj 150 MG in 0.9 % SODIUM CHLORIDE 250 ml 250 ML 510 MG IVPB (09:42)
[2024-11-13] MEDS: TUBING SECONDARY IV (10:39)
[2024-11-13] MEDS: DOXOrubicin 2 MG/ML inj 105 MG IVP (10:39)
[2024-11-13] MEDS: [UNRECOGNIZED DRUG - OTHER] IV (10:39)
[2024-11-13] MEDS: CYCLOPHOSPHAMIDE IV (10:39)
[2024-11-13] MEDS: HEPARIN 500 UNIT/5 ML SYRINGE IVF (11:43)
[2024-11-14 14:35] VITALS: BP 103/62; PULSE 64; RESP 16; TEMP 36.1; O2SAT 98
[2024-11-14] MEDS: PEGFILGRASTIM-JMDB (Fulphila) 6 MG/0.6 ML SUBCUT (14:50)
--- NOTE | 2024-11-15 14:19 | ONC.NURNOTE ---
Call to patient to review breast MRI results. Patient was excited to hear about the good response to her treatments. She is overall feeling well other than fatigue.
--- NOTE | 2024-11-19 14:37 | ONC.NURNOTE ---
Patient called [facility] with an update on her condition. Patient states she is good, a lot better this time. Her question today is about how she should take her PRN antiemetics. She has had intermittent nausea the past few days but no vomiting. Her appetite has been poor but she is eating and drinking. We discussed alternating prochlorperazine and ondansetron as needed. She also could take prochlorperazine on a schedule the next few days and use ondansetron for break through nausea. Patient verbalizes understanding.
[2024-12-03 08:02] LABS: Hematocrit 33.4 % (33.0-51.0); Hemoglobin* 10.9 gm/dL (12.0-16.0); Immature Granulocytes Abs Auto 0.18 K/uL (0.00-0.30); Immature Granulocytes Pct Auto 1.8 %; Lymphocytes Absolute Auto 2.54 K/uL (0.90-2.90); Mean Corpuscular HGB Conc 33 gm/dL (32-36); Mean Corpuscular Hemoglobin 32 pg (26-34); Mean Corpuscular Volume 97 fL (80-100); RDW Coefficient of Variation % 13.6 % (11.5-15.5); Red Blood Count 3.44 m/uL (4.00-5.20); White Blood Count* 10.28 K/uL (4.50-11.00)
[2024-12-03 08:03] LABS: Slide Review Reflex No
[2024-12-03 08:15] LABS: Albumin* 4.2 g/dL (3.3-5.0); Chloride* 105 mmol/L (96-114); Sodium* 139 mmol/L (135-149)
[2024-12-03 08:16] LABS: Potassium* 3.5 mmol/L (3.6-5.1)
[2024-12-03 08:18] LABS: Alanine Aminotransferase* 18 U/L (4-35); Alkaline Phosphatase* 68 U/L (40-150); Anion Gap 6 mEq/L (7-15); Aspartate Amino Transferase* 30 U/L (12-35); Bilirubin Total* 0.2 mg/dL (0.1-1.5); Blood Urea Nitrogen* 20 mg/dL (7-30); Carbon Dioxide* 28 mmol/L (20-32); Creatinine* 0.6 mg/dL (0.5-1.5); Est. Creatinine Clearance* 37.85; Estimated Glomerular Filt Rate 93 ml/min; Total Protein* 6.9 g/dL (6.0-8.3)
[2024-12-03 08:19] LABS: Calcium* 9.4 mg/dL (8.4-10.6); Glucose* 110 mg/dL (60-115)
[2024-12-03] MEDS: PEMBROLIZUMAB 200 MG, TUBING PRIMARY 1 EACH, In-line 0.2 micron filter set 1 EACH in 0.... 216 MG IVPB (09:51)
[2024-12-03] MEDS: FOSAPREPITANT 150 MG inj 150 MG in 0.9 % SODIUM CHLORIDE 250 ml 250 ML 510 MG IVPB (10:37)
[2024-12-03] MEDS: DEXAMETHASONE 10 MG/ML PF IVP (10:37)
[2024-12-03] MEDS: CYCLOPHOSPHAMIDE IV (11:18)
[2024-12-03] MEDS: [UNRECOGNIZED DRUG - OTHER] IV (11:18)
[2024-12-03] MEDS: TUBING SECONDARY IV (11:18)
[2024-12-03] MEDS: DOXOrubicin 2 MG/ML inj 105 MG IVP (11:18)
[2024-12-03] MEDS: HEPARIN 500 UNIT/5 ML SYRINGE IVF (12:09)
[2024-12-03] MEDS: SODIUM CHLORIDE 0.9 % (FLUSH) 10 ML SYRINGE IVF (12:09)
[2024-12-04] MEDS: PEGFILGRASTIM-JMDB (Fulphila) 6 MG/0.6 ML SUBCUT (14:38)
--- NOTE | 2024-12-10 13:57 | ONC.NURNOTE ---
Patient notified of stable troponin results. Patient verbalizes understanding.
--- NOTE | 2024-12-14 15:46 | ONC.NURNOTE ---
Pt called reporting josh blood with passing of a large, formed stool x 1 today. She describes as bright red blood on toilet paper when wiping, then noticing streaks of blood on the stool in the toilet. She notes she has a hx of hemorrhoids. She showered immediately and used ointment; she will continue marybel cares with tucks, hemorrhoid ointment. Recommended Aquaphor if irritation issues. No additional rectal bleeding noticed. She will continue to monitor her stools and notify if further bleeding.
[2024-12-18] MEDS: HEPARIN 500 UNIT/5 ML SYRINGE IVF (08:10)
[2024-12-18] MEDS: SODIUM CHLORIDE 0.9 % (FLUSH) 10 ML SYRINGE IVF (08:10)
--- NOTE | 2024-12-18 12:34 | ONC.NURNOTE ---
Pt here at 0800 for troponin weekly blood draw. Critical troponin came back at 0.14. Pt stated she didn't sleep well last night and she felt her heart was racing at times. Discussed with Dr. Haider and Dr. Haider recommended having pt be evaluated in the Emergency Room. Pt verbalized understanding of plan of care. Notes from [facility] sent to ED.
--- NOTE | 2024-12-19 14:13 | ONC.NURNOTE ---
Patient has many questions about her plan of care. Patient informed that Dr. Haider is aware of her recent hospitalization and has reviewed the records. Our plan moving forward is to check labs, including Troponin on 12/24. We will plan to hold immunotherapy for presumed myocarditis. If her labs and assessment meet criteria, we will plan to do the last cycle of chemo, doxorubicin and cytoxan and then proceed to surgery. Adjuvant care with immunotherapy is TBD. Patient verbalizes understanding.
[2024-12-24] MEDS: SODIUM CHLORIDE 0.9 % (FLUSH) 10 ML SYRINGE IVF (08:15)
[2024-12-24 08:31] LABS: Hematocrit 33.6 % (33.0-51.0); Hemoglobin* 11.0 gm/dL (12.0-16.0); Immature Granulocytes Abs Auto 0.11 K/uL (0.00-0.30); Immature Granulocytes Pct Auto 1.2 %; Lymphocytes Absolute Auto 2.82 K/uL (0.90-2.90); Mean Corpuscular HGB Conc 33 gm/dL (32-36); Mean Corpuscular Hemoglobin 31 pg (26-34); Mean Corpuscular Volume 95 fL (80-100); RDW Coefficient of Variation % 13.0 % (11.5-15.5); Red Blood Count 3.53 m/uL (4.00-5.20); White Blood Count* 9.10 K/uL (4.50-11.00)
[2024-12-24 08:34] LABS: Slide Review Reflex No
[2024-12-24 08:47] LABS: Chloride* 106 mmol/L (96-114)
[2024-12-24 08:48] LABS: Albumin* 4.2 g/dL (3.3-5.0); Potassium* 3.6 mmol/L (3.6-5.1); Sodium* 138 mmol/L (135-149)
[2024-12-24 08:50] LABS: Alanine Aminotransferase* 15 U/L (4-35); Anion Gap 7 mEq/L (7-15); Aspartate Amino Transferase* 29 U/L (12-35); Blood Urea Nitrogen* 22 mg/dL (7-30); Carbon Dioxide* 25 mmol/L (20-32); Creatinine* 0.7 mg/dL (0.5-1.5); Est. Creatinine Clearance* 37.85; Estimated Glomerular Filt Rate 90 ml/min
[2024-12-24 08:51] LABS: Alkaline Phosphatase* 74 U/L (40-150); Bilirubin Total* 0.2 mg/dL (0.1-1.5); Calcium* 9.3 mg/dL (8.4-10.6); Glucose* 105 mg/dL (60-115); Total Protein* 6.9 g/dL (6.0-8.3)
[2024-12-24] MEDS: HEPARIN 500 UNIT/5 ML SYRINGE IVF (10:00)
--- NOTE | 2024-12-31 14:15 | ONC.NURNOTE ---
Troponin results reviewed with Carlotta Narvaez PA-C. Patient is asymptomatic. No additional intervention needed at this time. Patient is scheduled to see crew attendant Dr. Niko Meade at [facility] tomorrow for surgical clearance. Patient is aware that she will also need PCP clearance as well. Once this is obtained, Dr. Grace will look at the OR schedule to see if we can work her in next week. Patient verbalizes understanding.
--- NOTE | 2025-01-30 14:12 | ONC.NURNOTE ---
Troponin results reviewed by Dr. Haider. Patient remains asymptomatic. Patient is still waiting to hear back from [facility] regarding follow up. Will continue to trend Troponin tomorrow.
== END 2025-01-12 23:59 | disposition home or self-care (01) ==
LOC: CCIC 10:00
PROVIDERS: Clinical Nurse Specialist; Internal Medicine Hematology & Oncology; Surgery; PCP Internal Medicine; Referring Provider Internal Medicine; Visit Provider Physician Assistant
DX: C50.912 Malignant neoplasm of unspecified site of left female breast (principal); Z17.1 Estrogen receptor negative status [ER-]; R79.89 Other specified abnormal findings of blood chemistry; R00.0 Tachycardia, unspecified
CPT/HCPCS: 36415; 36591; 77049; 80053; 84443; 84484; 85025; 93306; 96367; 96368; 96372; 96375; 96411; 96413; 96415; 96417; 99202; 99205; 99211; 99214; 99215; C8908; C8937; G0463; J9000; J9073; A9575; J1100; J1200; J1308; J1453; J1642; J2469; J7030; J7050; J9045; J9267; J9271; Q5108; S0028

== ENCOUNTER 2025-01-08 09:59 | Day surgery (SDC) | payer MEDICARE, OTHER, SELFPAY ==
[2025-01-08] MEDS: LACTATED RINGERS 1000 ML 1,000 ML 100 ML IV (10:05)
[2025-01-08 10:23] VITALS: BP 141/81; PULSE 83; RESP 16; TEMP 36.6; O2SAT 94; BMI 27.4
[2025-01-08] MEDS: SODIUM CHLORIDE 0.9 % (FLUSH) 10 ML SYRINGE IVF (10:28)
--- NOTE | 2025-01-08 11:07 | P.ANES_ITS ---
Anesthesia Charges Start Date/Time Anesthesia Start Date: 01/08/25 Anesthesia Start Time: 13:04 Stop Date/Time Anesthesia Stop Date: 01/08/25 Anesthesia Stop Time: 15:07 Summary Extremes of Age - Over 70 or under 1: MDA Coding CPT Codes CPT Codes: ANESTH SURGERY OF SHOULDER - 79876 ([id number]) P3 - PATIENT W/SEVERE SYS DISEASE, QK - DINING ROOM SERVER 2-4 CNCRNT ANES PROC, QX - COIL MACHINE OPERATOR SVC W/ MD MED DIRECTION Additional Codes: Summary - Extremes of Age - Over 70 or under 1: MDA ([id number])
--- NOTE | 2025-01-08 11:07 | W.ANESCHARGE ---
Anesthesia Charges Start Date/Time Anesthesia Start Date: 01/08/25 Anesthesia Start Time: 13:04 Stop Date/Time Anesthesia Stop Date: 01/08/25 Anesthesia Stop Time: 15:07 Summary Extremes of Age - Over 70 or under 1: MDA Coding CPT Codes CPT Codes: ANESTH SURGERY OF SHOULDER - 51030 ([id number]) P3 - PATIENT W/SEVERE SYS DISEASE, QK - FUNERAL PROFESSIONAL 2-4 CNCRNT ANES PROC, QX - CANARY RAISER SVC W/ MD MED DIRECTION Additional Codes: Summary - Extremes of Age - Over 70 or under 1: MDA ([id number])
--- NOTE | 2025-01-08 11:15 | CRLHL7_ITS ---
For Patients: As a result of the Cures Act, medical imaging exams and procedure reports are released immediately into your electronic medical record. You may view this report before your referring provider. If you have questions, please contact your health care provider. BREAST WIRE LOCALIZATION USING ULTRASOUND GUIDANCE CLINICAL HISTORY: Breast cancer LATERALITY:Left breast LESION: Small residual lesion at 1:00 9 cm from the nipple LOCALIZATION WIRE: [place] hookwire. TECHNIQUE: The localization wire was placed using real-time ultrasound guidance with image documentation. Cranial-caudal and medial-lateral digital mammograms were obtained after localization wire placement. CONSENT and TIME OUT: The procedure, risks, and alternatives were explained to the patient and a consent was signed. [place] Protocol was followed including pre-procedure verification that relevant information/documentation was available, reviewed and properly matched to the patient; consent accurate and complete; and equipment and supplies available. Time Out was conducted just prior to starting procedure to verify the four required elements: patient identity, correct side/site marked (if applicable), procedure, relevant images/results properly labeled and displayed (if applicable). PROCEDURE:The skin was prepped with ChloraPrep and 8 cc of 1% lidocaine was injected for local anesthesia. The localization wire was placed within or near the targeted breast lesion using ultrasound guidance. The patient tolerated the procedure well. PROXIMITY OF WIRE TO LESION: Within the small residual lesion adjacent to the clip. IMPRESSION: Successful breast wire localization. ACR not applicable Dictated by Elder Choudhury MD @ Jan 08 2025 3:34PM JR/Dictated by: Elder Choudhury MD @ 01/17/2025 9:19:00 AM (Electronically Signed)
--- NOTE | 2025-01-08 11:45 | MM_ITS ---
Patient: SHONNA LEIVA Facility:?[facility] Patient ID:?[id number] Site Patient ID:?[id number]. Site :?[id number] Study:?NM-Breast -01/08/2025 12:38:27 PM Ordering Physician:Bryan Acuña Final Report: INDICATION: Left-sided breast cancer. Injection for sentinel lymph node scintigraphy. Informed consent was obtained by Dr. Grace. Dr. Grace discussed the risks and benefits of the procedure. The patient agreed to proceed. [place] Protocol: A. Pre-procedure verification complete: Yes 1-relevant information/documentation available, reviewed and properly matched to the patient; 2-consent accurate and complete, 3-equipment and supplies available. B. Site marking complete: Yes Site marked if not in continuous attendance with patient. C. TIME OUT completed: Yes Time Out was conducted just prior to starting procedure to verify the eight required elements: 1-patient identity, 2-consent accurate and complete, 3- position, 4-correct side/site marked (if applicable), 5-procedure, 6-relevant images/results properly labeled and displayed (if applicable), 7- antibiotics/irrigation fluids (if applicable), 8-safety precautions, 9- laboratory results were reviewed. Utilizing sterile technique, Dr. Grace injected 866 microcuries of technetium filtered sulfur colloid within an intradermal location superolateral to the left nipple areolar complex. The patient tolerated the injection well. No immediate complications were documented. No subsequent imaging. IMPRESSION: Technically successful left breast injection for sentinel lymph node scintigraphy. Juan Miguel Vazquez M.D. Diagnostic/Nuclear Medicine Radiologist [email or web address] HUYEN/sam: D& Transcribed: 1:59 pm DW/Dictated by: Juan Miguel Vazquez MD @ 01/08/2025 1:26:00 PM Signed by:Orlando Vazquez MD @01/08/2025 2:05:17 PM (Electronic Signature)
--- NOTE | 2025-01-08 12:15 | CRLHL7_ITS ---
For Patients: As a result of the Century Cures Act, medical imaging exams and procedure reports are released immediately into your electronic medical record. You may view this report before your referring provider. If you have questions, please contact your health care provider. INDICATION: Left-sided breast cancer. Injection for sentinel lymph node scintigraphy. Informed consent was obtained by Dr. Grace. Dr. Grace discussed the risks and benefits of the procedure. The patient agreed to proceed. [place] Protocol: A. Pre-procedure verification complete: Yes 1-relevant information/documentation available, reviewed and properly matched to the patient; 2-consent accurate and complete, 3-equipment and supplies available. B. Site marking complete: Yes Site marked if not in continuous attendance with patient. C. TIME OUT completed: Yes Time Out was conducted just prior to starting procedure to verify the eight required elements: 1-patient identity, 2-consent accurate and complete, 3-position, 4-correct side/site marked (if applicable), 5-procedure, 6-relevant images/results properly labeled and displayed (if applicable), 7-antibiotics/irrigation fluids (if applicable), 8-safety precautions, 9-laboratory results were reviewed. Utilizing sterile technique, Dr. Grace injected 866 microcuries of technetium filtered sulfur colloid within an intradermal location superolateral to the left nipple areolar complex. The patient tolerated the injection well. No immediate complications were documented. No subsequent imaging. IMPRESSION: Technically successful left breast injection for sentinel lymph node scintigraphy. Juan Miguel Vazquez M.D. Diagnostic/Nuclear Medicine Radiologist [email or web address] Transcribed: 1:59 pm DW/Dictated by: Juan Miguel Vazquez MD @ 01/08/2025 1:26:00 PM (Electronically Signed)
--- NOTE | 2025-01-08 12:46 | P.GSOP_ITS ---
Operative Note Date of procedure: 01/08/25 Pre-op diagnosis: Left-sided invasive ductal carcinoma, triple negative Post-op diagnosis: Same Type of Procedure: 1. Left lumpectomy with preoperative wire localization 2. Left axillary sentinel lymph node biopsy Indications: The patient is a 74-year-old female who noted a lump in her left breast. Imaging workup revealed a suspicious mass and biopsy showed triple negative invasive ductal carcinoma. She underwent staging workup and had biopsies of 2 lymph nodes in her left axilla which both came back negative for metastatic disease. She then underwent neoadjuvant chemotherapy. 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 She did follow with cardio oncology. We discussed surgical options and as she appeared to have an excellent response on follow-up MRI, she elected to proceed with lumpectomy. Procedure Description: After discussion of risks and benefits, the patient was brought to the operating room and placed supine on the operating table. General anesthesia was induced. 1 hr to incision, radiotracer was injected into the dermis the [right/left] breast just above the areola. 10 min prior to the incision I injected 3 ml isosulfan blue dye into the dermis above the areola. This was massaged for 3 min. Once this was completed, the area was prepped and draped sterilely. A time-out was then completed. The breast was examined. The tumor was noted to be in the upper outer quadrant, near the axilla. It was felt that both the sentinel node biopsy as well as the tumor could be excised through the same incision. After injecting local anesthetic, I created an incision just at the inferior aspect of the axillary hairline. I began by creating a subcutaneous plane using cautery. I did this until the wire was encountered. This was then pulled through the incision. I then carefully dissected the breast tissue around the wire to completely excise the mass. Once this was done, it was inked for orientation. It was then sent for x-ray which showed the clip and the wire. It was then sent to pathology. Attention was then turned to the sentinel lymph node biopsy. The probe was brought into the field. A strong signal was noted in the axilla and through the same incision, dissection was taken down through the clavipectoral fascia into the axillary fat. The probe was used to identify a node at the end of a blue ly mphatic channel. This was carefully dissected free of the surrounding fat using cautery. A strong signal was noted ex vivo. The probe was placed back into the wound bed and a slight further signal was noted. A 2nd node was dissected free of the surrounding fat using cautery. This node was somewhat firm an oblong, perhaps representing 2 adjacent nodes. This was measured ex vivo and did have a signal. There was no further signal, blue nodes or suspicious nodes in the axilla after removal of the 2nd node. These were then sent for x-ray as the patient had previously had a node biopsied. A clip was noted within at least 1 of the nodes. They were then sent for frozen section. Pathology showed the margins were grossly negative, however the superior margin was 7 mm away. I elected to excise an additional swath of tissue at the superior margin. This was done using cautery. This was then inked for margins and sent to pathology in formalin. At this time the frozen section results ret urned on the sentinel lymph nodes. The nodes were negative for metastatic cancer. The wound was examined. Hemostasis appeared excellent. Clips were placed at the borders of the lumpectomy cavity. The clavipectoral fascia was closed with 3-0 Vicryl suture. A small amount of breast tissue was mobilized inferiorly to allow it to lay more naturally in the lumpectomy cavity. The skin was then c losed with 3-0 Vicryl dermal and 4-0 Monocryl running subcuticular suture. Sterile dressing and a pressure dressing was then applied. The patient tolerated the procedure well. ? The patient was then woken and transported to the recovery area in stable condition. ? The patient tolerated the procedure well. Findings: 1. Clip noted in lumpectomy specimen. The gross margins negative, however close superiorly. Additional superior margin excised 2. Cushman lymph nodes negative. At least 1 node removed had a prior biopsy clip. Anesthesia: MAC Surgeon: Arianne Grace MD Estimated blood loss (mL): 25 Additional Specimen Information: 1. Left breast lumpectomy 2. Left axillary sentinel lymph nodes 3. Left breast lumpectomy additional superior margin Condition: stable Disposition: same day
--- NOTE | 2025-01-08 12:46 | W.PM.H&PU ---
History & Physical Update History & Physical Update H&P Reviewed and patient assessed: No changes noted
--- NOTE | 2025-01-08 13:00 | CRLHL7_ITS ---
For Patients: As a result of the Cures Act, medical imaging exams and procedure reports are released immediately into your electronic medical record. You may view this report before your referring provider. If you have questions, please contact your health care provider. LEFT BREAST SPECIMEN RADIOGRAPH CLINICAL HISTORY: LEFT breast cancer. COMPARISON: 01/08/2025. FINDINGS: Two views of the LEFT breast specimens submitted. Specimen contains the biopsied lesion, the biopsy clip and the localization wire. IMPRESSION: Specimen contains the biopsied lesion, localization wire and biopsy clip. ACR not applicable Dictated by Elder Choudhury MD @ 01/08/2025 3:32:33 PM jj/Dictated by: Elder Choudhury MD @ 01/08/2025 3:32:00 PM (Electronically Signed)
[2025-01-08] MEDS: ISOSULFAN BLUE 5 ML VIAL INJECTION (13:10)
[2025-01-08] MEDS: BUPIVACAINE 0.25% 30 ML INJECTION (13:35)
[2025-01-08] MEDS: LIDOCAINE 1% MDV 20 ML INJECTION (13:35)
--- NOTE | 2025-01-08 14:25 | CRLHL7_ITS ---
For Patients: As a result of the Cures Act, medical imaging exams and procedure reports are released immediately into your electronic medical record. You may view this report before your referring provider. If you have questions, please contact your health care provider. LEFT BREAST SPECIMEN RADIOGRAPH CLINICAL HISTORY: LEFT breast cancer. COMPARISON: 07/11/2024. FINDINGS: Two views of the LEFT axillary lymph node specimen submitted. Specimen contains the previously biopsied lymph node along with the oval clip. IMPRESSION: Specimen contains the biopsied lymph node and oval biopsy clip. ACR not applicable Dictated by Elder Choudhury MD @ 01/08/2025 3:33:59 PM jj/Dictated by: Elder Choudhury MD @ 01/08/2025 3:33:00 PM (Electronically Signed)
--- NOTE | 2025-01-08 15:08 | P.ANES_ITS ---
Anesthesia Charges Start Date/Time Anesthesia Start Date: 01/08/25 Anesthesia Start Time: 13:04 Stop Date/Time Anesthesia Stop Date: 01/08/25 Anesthesia Stop Time: 15:07 Summary Extremes of Age - Over 70 or under 1: DRILLER HELPER Coding CPT Codes CPT Codes: ANESTH SURGERY OF SHOULDER - 27316 ([id number]) P3 - PATIENT W/SEVERE SYS DISEASE, QK - SCENARIO WRITER 2-4 CNCRNT ANES PROC, QX - DRILLER HELPER SVC W/ MD MED DIRECTION Additional Codes: Summary - Extremes of Age - Over 70 or under 1: DRILLER HELPER ([id number])
--- NOTE | 2025-01-08 15:08 | W.ANESCHARGE ---
Anesthesia Charges Start Date/Time Anesthesia Start Date: 01/08/25 Anesthesia Start Time: 13:04 Stop Date/Time Anesthesia Stop Date: 01/08/25 Anesthesia Stop Time: 15:07 Summary Extremes of Age - Over 70 or under 1: DRY FOOD PRODUCTS MIXER Coding CPT Codes CPT Codes: ANESTH SURGERY OF SHOULDER - 56314 ([id number]) P3 - PATIENT W/SEVERE SYS DISEASE, QK - INDUSTRIAL TRUCK OPERATOR 2-4 CNCRNT ANES PROC, QX - DRY FOOD PRODUCTS MIXER SVC W/ MD MED DIRECTION Additional Codes: Summary - Extremes of Age - Over 70 or under 1: DRY FOOD PRODUCTS MIXER ([id number])
[2025-01-08 15:10] VITALS: BP 106/73; PULSE 66; RESP 16; TEMP 37.2; O2SAT 95
[2025-01-08 15:15] VITALS: BP 97/65; PULSE 67; RESP 16; O2SAT 95
[2025-01-08 15:30] VITALS: BP 109/77; PULSE 61; RESP 16; O2SAT 96
[2025-01-08 15:45] VITALS: BP 125/68; PULSE 63; RESP 16; O2SAT 98
[2025-01-08] MEDS: HYDROCODONE-ACETAMIN 5-325 MG 1 TAB PO (15:51)
== END 2025-01-08 16:14 | disposition home or self-care (01) ==
PROVIDERS: PCP Internal Medicine; Visit Provider Surgery
PROC: (CPT 19301; principal; 2025-01-08 13:00)
PROC: (CPT 19301; 2025-01-08 13:00)
DX: C50.412 Malignant neoplasm of upper-outer quadrant of left female breast (principal); Z17.1 Estrogen receptor negative status [ER-]; Z17.22 Progesterone receptor negative status; Z17.32 Human epidermal growth factor receptor 2 negative status
CPT/HCPCS: 19301; 38500; 01610; 19285; 38792; 76942; 77065; 88307; 99100; J2003; A9270; A9541; C1769; J0665; J0690; J1200; J2704; J3490; J7120

== ENCOUNTER 2025-04-26 09:36 | Outpatient (CLI) | payer MEDICARE, OTHER, SELFPAY ==
[2025-04-26 14:02] LABS: Hematocrit* 41.1 % (33.0-51.0); Hemoglobin* 13.5 gm/dL (12.0-16.0); Immature Granulocytes Abs Auto 0.01 K/uL (0.00-0.30); Immature Granulocytes Pct Auto 0.2 %; Mean Corpuscular HGB Conc 33 gm/dL (32-36); Mean Corpuscular Hemoglobin 28 pg (26-34); Mean Corpuscular Volume 86 fL (80-100); RDW Coefficient of Variation % 12.9 % (11.5-15.5); Red Blood Count* 4.79 m/uL (4.00-5.20); White Blood Count* 5.03 K/uL (4.50-11.00)
[2025-04-26 14:03] LABS: Lymphocytes Absolute Auto 2.50 K/uL (0.90-2.90); Slide Review Reflex No
[2025-04-26 16:53] LABS: Erythrocyte SedimentationRate* 48 mm/hr (2-20)
== END 2025-04-26 09:37 | disposition home or self-care (01) ==
LOC: NPINS 09:37
PROVIDERS: PCP Internal Medicine; Visit Provider Optometrist
DX: H35.62 Retinal hemorrhage, left eye (principal)
CPT/HCPCS: 85025; 85651; 86140

== ENCOUNTER 2025-05-29 08:25 | Outpatient (CLI) | payer MEDICARE, OTHER, SELFPAY | END 2025-05-29 08:26 | disposition home or self-care (01) | LOC: NFLDREF 06-04 09:18 | PROVIDERS: PCP Internal Medicine; Referring Provider Internal Medicine; Visit Provider Internal Medicine | DX: E78.5 Hyperlipidemia, unspecified (principal); I10 Essential (primary) hypertension; M81.0 Age-related osteoporosis without current pathological fracture | CPT/HCPCS: 80048; 80061; 82306 ==

== ENCOUNTER 2025-06-21 09:26 | Outpatient (CLI) | payer MEDICARE, OTHER, SELFPAY ==
--- NOTE | 2025-06-21 09:45 | CRLHL7_ITS ---
For Patients: As a result of the Century Cures Act, medical imaging exams and procedure reports are released immediately into your electronic medical record. You may view this report before your referring provider. If you have questions, please contact your health care provider. BILATERAL DIGITAL DIAGNOSTIC MAMMOGRAM WITH TOMOSYNTHESIS AND COMPUTER-AIDED DETECTION, 06/21/2025 LEFT AXILLA ULTRASOUND, 06/21/2025 CLINICAL HISTORY: LEFT axillary lump COMPARISON: 06/15/2024, 11/29/2023, 08/10/2022. TECHNIQUE: Digital BILATERAL mammogram in 4 projections with computer-aided detection. Tomosynthesis was used in this interpretation. Real-time ultrasound imaging of LEFT axilla with imaging documentation. BREAST COMPOSITION: There are scattered areas of fibroglandular density. FINDINGS: 3D CC/MLO BILATERAL mammogram images submitted. Normal fibroglandular tissue is present BILATERALLY. No suspicious calcifications. Post treatment changes upper outer quadrant LEFT breast. Targeted LEFT axillary ultrasound performed. In this location there is a circumscribed anechoic fluid collection which measures 3.6 x 2.8 x 2.6 cm. No internal or surrounding vascularity. IMPRESSION: Postop seroma in the LEFT axilla measures 3.6 x 2.8 x 2.6 cm. RECOMMENDATIONS: Clinical follow-up. Routine screening mammography. Drainage could be considered as indicated. A lay language report of this examination will be provided to the patient. BI-RADS Category 2 Benign. Dictated by Elder Choudhury MD @ 06/21/2025 10:51:32 AM/MAYO:pilo AC/Dictated by: Elder Choudhury MD @ 06/21/2025 10:51:00 AM (Electronically Signed)
--- NOTE | 2025-06-21 10:15 | CRLHL7_ITS ---
For Patients: As a result of the Century Cures Act, medical imaging exams and procedure reports are released immediately into your electronic medical record. You may view this report before your referring provider. If you have questions, please contact your health care provider. PLEASE SEE MAMMOGRAM FOR MAMMOGRAM AND AXILLA ULTRASOUND COMBINED REPORT CRL:pilo AC/Dictated by: Elder Choudhury MD @ 06/21/2025 10:51:00 AM (Electronically Signed)
== END 2025-06-21 09:27 | disposition home or self-care (01) ==
LOC: MAMMO 09:27
PROVIDERS: PCP Internal Medicine; Visit Provider Internal Medicine Hematology & Oncology
DX: C50.912 Malignant neoplasm of unspecified site of left female breast (principal); R22.32 Localized swelling, mass and lump, left upper limb; N64.59 Other signs and symptoms in breast
CPT/HCPCS: 76882; 77066; G0279